=== PATIENT | female | born 1960 | race Caucasian/White ===

== ENCOUNTER 2018-10-25 16:54 | Inpatient (IN) | payer MEDICARE, MEDICAID ==
[~2018-10-25] VITALS: Ht 162.6 cm; Wt 104.8 kg
[2018-10-25] VITALS (7 sets, daily range): BP systolic 98–111; BP diastolic 51–64
[2018-10-25] MEDS ORDERED: IV NORMAL SALINE 1000ML BAG 1,000 ML IV SCH ×2 (17:01→18:15)
[2018-10-25] MEDS ORDERED: IV NORMAL SALINE 1000ML BAG 1,000 ML IV ONE (17:15)
[2018-10-25] MEDS ORDERED: NALOXONE 0.4 MG/ML VIAL. IV ONE (17:15)
[2018-10-25 17:21] LABS: BASO # 0.1 x10^3/uL (0.0-0.2); BASO % 1 % (0-3); EOS # 0.1 x10^3/uL (0.0-0.7); EOS % 1 % (0-3); HEMATOCRIT 46.6 % (36.0-47.0); HEMOGLOBIN 15.6 g/dL (12.0-15.5); LYMPH # 1.7 x10^3/uL (1.0-4.8); LYMPH % 18 % (24-48); MEAN CORPUSCULAR HEMOGLOBIN 32 pg (25-35); MEAN CORPUSCULAR HGB CONC 34 g/dL (31-37); MEAN CORPUSCULAR VOLUME 94 fL (79-100); MONO # 1.1 x10^3/uL (0.0-1.1); MONO % 12 % (0-9); NEUT # 6.5 x10^3uL (1.8-7.7); NEUT % 69 % (31-73); PLATELET COUNT 246 x10^3/uL (140-400); RED BLOOD COUNT 4.95 x10^6/uL (3.50-5.40); RED CELL DISTRIBUTION WIDTH 13.6 % (11.5-14.5); WHITE BLOOD COUNT 9.5 x10^3/uL (4.0-11.0)
[2018-10-25 17:29] LABS: PROTHROMBIN TIME PATIENT 13.3 SEC (11.7-14.0)
[2018-10-25 17:31] LABS: BASE EXCESS ABG 1 mmol/L (-3-3); HCO3 ABG 27 mmol/L (21-28); PCO2 ABG 47 mmHg (35-46); PO2 ABG 65 mmHg (75-108); SAT O2 ABG 92 % (92-99)
[2018-10-25 17:36] LABS: CALCIUM 9.3 mg/dL (8.5-10.1); CREATININE 2.1 mg/dL (0.6-1.0); GFR 24.4; POTASSIUM 3.4 mmol/L (3.5-5.1)
--- NOTE | 2018-10-25 17:39 | RAD ---
PORTABLE CHEST 1V History: Altered level of consciousness, question overdose Comparison: None. Findings: Single view of the chest is submitted. There is no infiltrate, pneumothorax, or effusion. The pericardial cardiac silhouette is within normal limits in size. There is an opaque likely calcified right lower lobe nodule. There is some linear atelectasis or fibrotic change right lung base Impression: 1. There is no significant infiltrate. There is linear atelectasis or fibrotic change right lung base. 2. There is fairly nodule right at the right base which may be partially calcified. Electronically signed by: Suhail Hauser MD (10/25/2018 5:36 PM) [facility]
[2018-10-25 17:42] LABS: ALBUMIN 3.6 g/dL (3.4-5.0); DIRECT BILIRUBIN 0.3 mg/dL (0.0-0.2); TOTAL BILIRUBIN 0.7 mg/dL (0.2-1.0); TOTAL PROTEIN 7.2 g/dL (6.4-8.2)
[2018-10-25 17:43] LABS: ACETAMIN < 2 mcg/ml (10-30); ETHANOL < 10 mg/dL (0-10)
[2018-10-25 17:48] LABS: BILIRUBIN,URINE LARGE (NEG); CLARITY,URINE CLEAR; COLOR,URINE ORANGE; NITRITE,URINE NEGATIVE (NEG); PH,URINE 5.5; PROTEIN,URINE 30 mg/dL (NEG-TRACE)
[2018-10-25 17:55] LABS: AMORPHOUS SEDIMENT,UR PRESENT /HPF; HYALINE CASTS, URINE FEW /HPF; RBC,URINE RARE /HPF (0-2); SQUAMOUS EPITHELIAL CELL,UR FEW /LPF
[2018-10-25 17:56] LABS: BACTERIA,URINE FEW /HPF (0-FEW); BARBITURATES NEG (NEG); BENZODIAZEPINES NEG (NEG); CANNABINOIDS NEG (NEG); COCAINE NEG (NEG); METHADONE NEG (NEG); OPIATES NEG (NEG); PHENCYCLIDINE NEG (NEG)
[2018-10-25 17:57] LABS: AMPHETAMINE/METHAMPHETAMINE NEG (NEG)
--- NOTE | 2018-10-25 18:09 | PHYS DOC ---
Past Medical History Additional Past Medical Histor: SCHIZOAFFECTIVE DISORDER- DEPRESSIVE Past Surgical History: No Surgical History Additional Information: 2 PACKS A DAY Alcohol Use: None Drug Use: None Adult General Chief Complaint Chief Complaint: OVERDOSE HPI HPI Patient is a 58 year old female who was in by EMS because of overdose. Patient states that she twisted 100 mg trazodone yesterday because she was behind of taking her daily 100 trazodone states she became tired of cleaning the house and called her landlord and he suggested she talking to her neighbors. Patient was admitted at [facility] today and staff were concerned she was confused and called 911. EMS reported patient has GCS of 14 and had 0.4 mg of Narcan and became more alert and has GCS of 15. Patient had blood pressure of 70s without tachycardia at arrival to ER and was lethargic but was able to answer all of the questions and denied suicidal and homicidal ideation. Review of Systems Review of Systems Unable to obtain because of mental status Current Medications Current Medications Current Medications Medications (Trade) Dose Ordered Sig/Dez Start Time Stop Time Status Last Admin Dose Admin Naloxone HCl (Narcan) 0.4 mg 1X ONCE 10/25/18 17:15 10/25/18 17:45 DC 10/25/18 17:42 0.4 MG Sodium Chloride 1,000 ml @ 1,000 mls/hr 1X ONCE 10/25/18 17:15 10/25/18 18:14 DC 10/25/18 17:40 1,000 MLS/HR Allergies Allergies Allergies Coded Allergies Type Severity Reaction Last Updated Verified Unable to Assess 10/25/18 No Physical Exam Physical Exam Constitutional: Mild distress, non-toxic appearance. [] HENT: Normocephalic, atraumatic, good gag reflex , oropharynx dry Eyes: PERRLA, EOMI, conjunctiva normal, no discharge. [] Neck: Normal range of motion, no tenderness, supple, no stridor. [] Cardiovascular:Heart rate regular rhythm, no murmur [] Lungs & Thorax: Bilateral breath sounds clear to auscultation [] Abdomen: Bowel sounds normal, soft, no tenderness, no masses, no pulsatile masses. [] Skin: Warm, dry, no erythema, no rash. [] Back: No tenderness, no CVA tenderness. [] Extremities: No tenderness, no cyanosis, no clubbing, ROM intact, no edema. [] Neurologic: Alert and oriented X 2, some nontender, normal motor function, normal sensory function, no focal deficits noted. [] Psychologic: Denies suicidal and homicidal ideation Current Patient Data Vital Signs Vital Signs Date Time Temp Pulse Resp B/P (MAP) Pulse Ox O2 Delivery O2 Flow Rate FiO2 10/25/18 17:10 98.1 90 19 78/44 (55) 92 Room Air 3.0 98.1 Lab Values Laboratory Tests Test 10/25/18 17:10 10/25/18 17:40 White Blood Count 9.5 x10^3/uL (4.0-11.0) Red Blood Count 4.95 x10^6/uL (3.50-5.40) Hemoglobin 15.6 g/dL (12.0-15.5) H Hematocrit 46.6 % (36.0-47.0) Mean Corpuscular Volume 94 fL (79-100) Mean Corpuscular Hemoglobin 32 pg (25-35) Mean Corpuscular Hemoglobin Concent 34 g/dL (31-37) Red Cell Distribution Width 13.6 % (11.5-14.5) Platelet Count 246 x10^3/uL (140-400) Neutrophils (%) (Auto) 69 % (31-73) Lymphocytes (%) (Auto) 18 % (24-48) L Monocytes (%) (Auto) 12 % (0-9) H Eosinophils (%) (Auto) 1 % (0-3) Basophils (%) (Auto) 1 % (0-3) Neutrophils # (Auto) 6.5 x10^3uL (1.8-7.7) Lymphocytes # (Auto) 1.7 x10^3/uL (1.0-4.8) Monocytes # (Auto) 1.1 x10^3/uL (0.0-1.1) Eosinophils # (Auto) 0.1 x10^3/uL (0.0-0.7) Basophils # (Auto) 0.1 x10^3/uL (0.0-0.2) Prothrombin Time 13.3 SEC (11.7-14.0) Prothrombin Time INR 1.0 (0.8-1.1) Sodium Level 139 mmol/L (136-145) Potassium Level 3.4 mmol/L (3.5-5.1) L Chloride Level 98 mmol/L (98-107) Carbon Dioxide Level 30 mmol/L (21-32) Anion Gap 11 (6-14) Blood Urea Nitrogen 42 mg/dL (7-20) H Creatinine 2.1 mg/dL (0.6-1.0) H Estimated GFR (Cockcroft-Gault) 24.4 Glucose Level 113 mg/dL (70-99) H Lactic Acid Level 1.4 mmol/L (0.4-2.0) Calcium Level 9.3 mg/dL (8.5-10.1) Magnesium Level 2.0 mg/dL (1.8-2.4) Total Bilirubin 0.7 mg/dL (0.2-1.0) Direct Bilirubin 0.3 mg/dL (0.0-0.2) H Aspartate Amino Transferase (AST) 24 U/L (15-37) Alanine Aminotransferase (ALT) 28 U/L (14-59) Alkaline Phosphatase 86 U/L (46-116) Total Protein 7.2 g/dL (6.4-8.2) Albumin 3.6 g/dL (3.4-5.0) Salicylates Level 5.0 mg/dL (2.8-20.0) Salicylate Last Dose Date Unknown Salicylate Last Dose Time Unknown Acetaminophen Level < 2 mcg/ml (10-30) L Acetaminophen Last Dose Date Unknown Acetaminophen Last Dose Time Unknown Ethyl Alcohol Level < 10 mg/dL (0-10) Urine Collection Type U cath Urine Color [place] Urine Clarity Clear Urine pH 5.5 Urine Specific [place] 1.025 Urine Protein 30 mg/dL (NEG-TRACE) Urine Glucose (UA) Negative mg/dL (NEG) Urine Ketones (Stick) 15 mg/dL (NEG) Urine Blood Negative (NEG) Urine Nitrite Negative (NEG) Urine Bilirubin Large (NEG) Urine Urobilinogen Dipstick 1.0 mg/dL (0.2 mg/dL) Urine Leukocyte Esterase Trace (NEG) Urine RBC Rare /HPF (0-2) Urine WBC 1-4 /HPF (0-4) Urine Squamous Epithelial Cells Few /LPF Urine Amorphous Sediment Present /HPF Urine Bacteria Few /HPF (0-FEW) Urine Hyaline Casts Few /HPF Urine Mucus Mod /LPF Urine Opiates Screen Neg (NEG) Urine Methadone Screen Neg (NEG) Urine Barbiturates Neg (NEG) Urine Phencyclidine Screen Neg (NEG) Urine Amphetamine/Methamphetamine Neg (NEG) Urine Benzodiazepines Screen Neg (NEG) Urine Cocaine Screen Neg (NEG) Urine Cannabinoids Screen Neg (NEG) Urine Ethyl Alcohol Neg (NEG) Laboratory Tests 10/25/18 17:10 Laboratory Tests 10/25/18 17:10 EKG EKG EKG interpreted by me. EKG at 1708 showed sinus rhythm at rate of 94, right henson axis, no acute ST and T-wave abnormalities Radiology/Procedures Radiology/Procedures [] Impressions: Chest x-ray interpreted by me and did not show acute finding Course & Med Decision Making Course & Med Decision Making Pertinent Labs and Imaging studies reviewed. (See chart for details) Initial patient in ER showed 58-year-old male patient brought in by EMS with lethargic and hypertension. Patient had 200 mg of trazodone. Patient had good gag reflex. The patient treated with IV fluid and Narcan with improvement of blood pressure and mental condition.Patient requiring admission for further evaluation and treatment. Discussed with Dr. Chris who is in agreement with admission. Discussed findings and plan with patient and family, who acknowledge understanding and agreement. Dragon Disclaimer Dragon Disclaimer This electronic medical record was generated, in whole or in part, using a voice recognition dictation system. Departure Departure Impression: Primary Impression: Overdose Additional Impressions: Renal insufficiency Altered level of consciousness Hypotension Hypokalemia Disposition: ADMITTED INPATIENT (at 1741) Admitting Physician: Brianne Chris (accepted admission at 1740) Condition: GUARDED Critical Care Time Critical care time was 70 minutes exclusive of procedures. Problem Qualifiers Primary Impression: Overdose Encounter type: initial encounter Injury intent: undetermined intent Qualified Codes: T50.904A - Poisoning by unspecified drugs, medicaments and biological substances, undetermined, initial encounter Additional Impressions: Hypotension Hypotension type: unspecified hypotension type Qualified Codes: I95.9 - Hypotension, unspecified JOANNE WOODWARD MD October 25, 2018 18:09
[2018-10-25] MEDS ORDERED: POTASSIUM CHLORIDE 20 MEQ TABLET.ER. PO ONE (18:15)
[2018-10-25] MEDS ORDERED: ONDANSETRON PF 4 MG/2 ML VIAL. IV PRN (18:15)
--- NOTE | 2018-10-25 18:22 | PDOC1 ---
History and Physical Date of Admission Date of Admission DATE: 10/25/18 TIME: 18:16 Identification/Chief Complaint Chief Complaint Confusion sent by [facility] Source Source: Caregiver, Chart review, Patient History of Present Illness History of Present Illness SHe is not the best historian, home meds are still pending, she has history of depression and supposed to be admitted to [facility] today but was sent here because of confusion. Now relays to me history of taking 300 mg trazodone from her usual 100 mg because she was not able to take those pills for a few days as she thought she'd catch up. Potassium 3.4 with a creatinine 2.1 unknown baseline. Mild hemoconcentration 15.6. Seems teary-eyed or not in distress but worried demeanor. BP initially low, responsive to IV fluids. Initially oliguria from straight catheter (thick urine) so Bragg catheter placed. Blood pressure better with IV fluids. Got a dose of Narcan and is awake- quite shaky, no seizures. NO fam at bedside Past Medical History Psych: Anxiety, Addictions, Depression, Other (insomnia) Past Surgical History Past Surgical History: No pertinent history Family History Family History: No Significant Social History Smoke: No ALCOHOL: none Drugs: None Current Medications Current Medications Current Medications Sodium Chloride 1,000 ml @ 1,000 mls/hr Q1H IV Last administered on 10/25/18at 17:39; Start 10/25/18 at 17:01; Stop 10/25/18 at 18:00; Status DC Sodium Chloride 1,000 ml @ 1,000 mls/hr 1X ONCE IV Last administered on 10/25/18at 17:40; Start 10/25/18 at 17:15; Stop 10/25/18 at 18:14; Status DC Naloxone HCl (Narcan) 0.4 mg 1X ONCE IV Last administered on 10/25/18at 17:42; Start 10/25/18 at 17:15; Stop 10/25/18 at 17:45; Status DC Allergies Allergies: Coded Allergies: Unable to Assess (Unverified , 10/25/18) ROS Review of System Limited, because of demeanor and above events Denied any abdominal pain, chest pain, S OA or any other issues to me - not interested in food though Physical Exam General: Alert, Oriented X3, Cooperative, No acute distress HEENT: Atraumatic, PERRLA, EOMI Lungs: Clear to auscultation, Normal air movement Heart: S1S2, RRR, no thrills, no rubs, no gallops, no murmurs Cardiovascular: S1, S2 Breasts: Normal, Rt breast nml w/o mass, Lt breast nml w/o mass, Nipples normal Abdomen: Normal bowel sounds, Soft, No tenderness, No hepatosplenomegaly, No masses Rectal Exam: not examined PELVIC: Nml ext genitalia Extremities: No clubbing, No cyanosis, No edema, Normal pulses, No tenderness/swelling Skin: No rashes, No breakdown, No significant lesion Neuro: Normal gait, Normal speech, Strength at 5/5 X4 ext, Normal tone, Sensation intact, Cranial nerves 3-12 NL, Reflexes 2+ Psych/Mental Status: Mental status NL, Mood NL Vitals Vitals Vital Signs Date Time Temp Pulse Resp B/P (MAP) Pulse Ox O2 Delivery O2 Flow Rate FiO2 10/25/18 17:10 98.1 90 19 78/44 (55) 92 Room Air 3.0 98.1 Labs Labs Laboratory Tests Test 10/25/18 17:10 10/25/18 17:40 White Blood Count 9.5 x10^3/uL (4.0-11.0) Red Blood Count 4.95 x10^6/uL (3.50-5.40) Hemoglobin 15.6 g/dL (12.0-15.5) Hematocrit 46.6 % (36.0-47.0) Mean Corpuscular Volume 94 fL (79-100) Mean Corpuscular Hemoglobin 32 pg (25-35) Mean Corpuscular Hemoglobin Concent 34 g/dL (31-37) Red Cell Distribution Width 13.6 % (11.5-14.5) Platelet Count 246 x10^3/uL (140-400) Neutrophils (%) (Auto) 69 % (31-73) Lymphocytes (%) (Auto) 18 % (24-48) Monocytes (%) (Auto) 12 % (0-9) Eosinophils (%) (Auto) 1 % (0-3) Basophils (%) (Auto) 1 % (0-3) Neutrophils # (Auto) 6.5 x10^3uL (1.8-7.7) Lymphocytes # (Auto) 1.7 x10^3/uL (1.0-4.8) Monocytes # (Auto) 1.1 x10^3/uL (0.0-1.1) Eosinophils # (Auto) 0.1 x10^3/uL (0.0-0.7) Basophils # (Auto) 0.1 x10^3/uL (0.0-0.2) Prothrombin Time 13.3 SEC (11.7-14.0) Prothromb Time International Ratio 1.0 (0.8-1.1) Sodium Level 139 mmol/L (136-145) Potassium Level 3.4 mmol/L (3.5-5.1) Chloride Level 98 mmol/L (98-107) Carbon Dioxide Level 30 mmol/L (21-32) Anion Gap 11 (6-14) Blood Urea Nitrogen 42 mg/dL (7-20) Creatinine 2.1 mg/dL (0.6-1.0) Estimated GFR (Cockcroft-Gault) 24.4 Glucose Level 113 mg/dL (70-99) Lactic Acid Level 1.4 mmol/L (0.4-2.0) Calcium Level 9.3 mg/dL (8.5-10.1) Magnesium Level 2.0 mg/dL (1.8-2.4) Total Bilirubin 0.7 mg/dL (0.2-1.0) Direct Bilirubin 0.3 mg/dL (0.0-0.2) Aspartate Amino Transf (AST/SGOT) 24 U/L (15-37) Alanine Aminotransferase (ALT/SGPT) 28 U/L (14-59) Alkaline Phosphatase 86 U/L (46-116) Total Protein 7.2 g/dL (6.4-8.2) Albumin 3.6 g/dL (3.4-5.0) Salicylates Level 5.0 mg/dL (2.8-20.0) Salicylate Last Dose Date Unknown Salicylate Last Dose Time Unknown Acetaminophen Level < 2 mcg/ml (10-30) Acetaminophen Last Dose Date Unknown Acetaminophen Last Dose Time Unknown Ethyl Alcohol Level < 10 mg/dL (0-10) Urine Collection Type U cath Urine Color [place] Urine Clarity Clear Urine pH 5.5 Urine Specific [place] 1.025 Urine Protein 30 mg/dL (NEG-TRACE) Urine Glucose (UA) Negative mg/dL (NEG) Urine Ketones (Stick) 15 mg/dL (NEG) Urine Blood Negative (NEG) Urine Nitrite Negative (NEG) Urine Bilirubin Large (NEG) Urine Urobilinogen Dipstick 1.0 mg/dL (0.2 mg/dL) Urine Leukocyte Esterase Trace (NEG) Urine RBC Rare /HPF (0-2) Urine WBC 1-4 /HPF (0-4) Urine Squamous Epithelial Cells Few /LPF Urine Amorphous Sediment Present /HPF Urine Bacteria Few /HPF (0-FEW) Urine Hyaline Casts Few /HPF Urine Mucus Mod /LPF Urine Opiates Screen Neg (NEG) Urine Methadone Screen Neg (NEG) Urine Barbiturates Neg (NEG) Urine Phencyclidine Screen Neg (NEG) Urine Amphetamine/Methamphetamine Neg (NEG) Urine Benzodiazepines Screen Neg (NEG) Urine Cocaine Screen Neg (NEG) Urine Cannabinoids Screen Neg (NEG) Urine Ethyl Alcohol Neg (NEG) Laboratory Tests Test 10/25/18 17:10 10/25/18 17:40 White Blood Count 9.5 x10^3/uL (4.0-11.0) Red Blood Count 4.95 x10^6/uL (3.50-5.40) Hemoglobin 15.6 g/dL (12.0-15.5) Hematocrit 46.6 % (36.0-47.0) Mean Corpuscular Volume 94 fL (79-100) Mean Corpuscular Hemoglobin 32 pg (25-35) Mean Corpuscular Hemoglobin Concent 34 g/dL (31-37) Red Cell Distribution Width 13.6 % (11.5-14.5) Platelet Count 246 x10^3/uL (140-400) Neutrophils (%) (Auto) 69 % (31-73) Lymphocytes (%) (Auto) 18 % (24-48) Monocytes (%) (Auto) 12 % (0-9) Eosinophils (%) (Auto) 1 % (0-3) Basophils (%) (Auto) 1 % (0-3) Neutrophils # (Auto) 6.5 x10^3uL (1.8-7.7) Lymphocytes # (Auto) 1.7 x10^3/uL (1.0-4.8) Monocytes # (Auto) 1.1 x10^3/uL (0.0-1.1) Eosinophils # (Auto) 0.1 x10^3/uL (0.0-0.7) Basophils # (Auto) 0.1 x10^3/uL (0.0-0.2) Prothrombin Time 13.3 SEC (11.7-14.0) Prothromb Time International Ratio 1.0 (0.8-1.1) Sodium Level 139 mmol/L (136-145) Potassium Level 3.4 mmol/L (3.5-5.1) Chloride Level 98 mmol/L (98-107) Carbon Dioxide Level 30 mmol/L (21-32) Anion Gap 11 (6-14) Blood Urea Nitrogen 42 mg/dL (7-20) Creatinine 2.1 mg/dL (0.6-1.0) Estimated GFR (Cockcroft-Gault) 24.4 Glucose Level 113 mg/dL (70-99) Lactic Acid Level 1.4 mmol/L (0.4-2.0) Calcium Level 9.3 mg/dL (8.5-10.1) Magnesium Level 2.0 mg/dL (1.8-2.4) Total Bilirubin 0.7 mg/dL (0.2-1.0) Direct Bilirubin 0.3 mg/dL (0.0-0.2) Aspartate Amino Transf (AST/SGOT) 24 U/L (15-37) Alanine Aminotransferase (ALT/SGPT) 28 U/L (14-59) Alkaline Phosphatase 86 U/L (46-116) Total Protein 7.2 g/dL (6.4-8.2) Albumin 3.6 g/dL (3.4-5.0) Salicylates Level 5.0 mg/dL (2.8-20.0) Salicylate Last Dose Date Unknown Salicylate Last Dose Time Unknown Acetaminophen Level < 2 mcg/ml (10-30) Acetaminophen Last Dose Date Unknown Acetaminophen Last Dose Time Unknown Ethyl Alcohol Level < 10 mg/dL (0-10) Urine Collection Type U cath Urine Color [place] Urine Clarity Clear Urine pH 5.5 Urine Specific [place] 1.025 Urine Protein 30 mg/dL (NEG-TRACE) Urine Glucose (UA) Negative mg/dL (NEG) Urine Ketones (Stick) 15 mg/dL (NEG) Urine Blood Negative (NEG) Urine Nitrite Negative (NEG) Urine Bilirubin Large (NEG) Urine Urobilinogen Dipstick 1.0 mg/dL (0.2 mg/dL) Urine Leukocyte Esterase Trace (NEG) Urine RBC Rare /HPF (0-2) Urine WBC 1-4 /HPF (0-4) Urine Squamous Epithelial Cells Few /LPF Urine Amorphous Sediment Present /HPF Urine Bacteria Few /HPF (0-FEW) Urine Hyaline Casts Few /HPF Urine Mucus Mod /LPF Urine Opiates Screen Neg (NEG) Urine Methadone Screen Neg (NEG) Urine Barbiturates Neg (NEG) Urine Phencyclidine Screen Neg (NEG) Urine Amphetamine/Methamphetamine Neg (NEG) Urine Benzodiazepines Screen Neg (NEG) Urine Cocaine Screen Neg (NEG) Urine Cannabinoids Screen Neg (NEG) Urine Ethyl Alcohol Neg (NEG) VTE Prophylaxis Ordered VTE Prophylaxis Devices: Yes VTE Pharmacological Prophylaxi: Yes Assessment/Plan Assessment/Plan Trazodone overdose 300 mg-not suicidal, she thought she'd catch up from missing a few days dose worth Hypokalemia mild, 3.4 Hemoconcentration 15.1 AK I VMN creatinine 2.1 Depression NOS Obesity BMI 40 HYPOTENSION responsive to IV fluids PLAN: Admit 2 MN Hydrate, maintain bragg for now Ok for reg diet WOF SZ - s/p narcan Awaiting home meds SW - will go back to [facility] on dc Other supprotive meds WOF : FURTHER HYPOTENSION, IVF bolus prn NS 125cc hr at least SO far no concerning EKG findings on TZ OD - WOF zofran etc and other meds that can prolong QT Seen at ER FULL CODE KEEP TELE FOR NOW ZARI GILLILAND MD October 25, 2018 18:22
[2018-10-25 18:33] LABS: FIO2 ABG 21
[2018-10-25] MEDS: IV NORMAL SALINE 1000ML BAG 1,000 ML IV SCH (20:30)
[2018-10-26] VITALS (14 sets, daily range): BP systolic 92–137; BP diastolic 47–74
[2018-10-26] MEDS: IV NORMAL SALINE 1000ML BAG 1,000 ML IV SCH ×3 (03:00→14:15)
[2018-10-26 05:42] LABS: CALCIUM 8.3 mg/dL (8.5-10.1); CREATININE 0.8 mg/dL (0.6-1.0); GFR 74.2; POTASSIUM 3.2 mmol/L (3.5-5.1)
--- NOTE | 2018-10-26 06:16 | EKG ---
[facility] [address] [place] [address] Test Date: 2018-10-25 Test Time: 17:08:45 Pat Name: JESSICA AGUSTIN Department: Room: Gender: F Bell Maker: : [id number] Requested By: JOANNE WOODWARD Order Number: [id number] Reading MD: Measurements Intervals [place] Rate: 94 P: 66 NV: 176 QRS: 97 QRSD: 84 T: 56 QT: 358 QTc: 453 Interpretive Statements SINUS RHYTHM RIGHTWARD AXIS OTHERWISE NORMAL ECG RI6.01 Unconfirmed report No previous ECG available for comparison
[2018-10-26] MEDS ORDERED: DIVA500T4 PO (07:35)
[2018-10-26] MEDS ORDERED: TRAZ-118 PO (07:35)
[2018-10-26] MEDS ORDERED: PALI234D IM (07:35)
[2018-10-26] MEDS ORDERED: FLUO20CA16 PO (07:35)
[2018-10-26] MEDS ORDERED: OLAN15TA9 PO (07:35)
[2018-10-26] MEDS ORDERED: LISI-334 PO (08:34)
--- NOTE | 2018-10-26 10:34 | NUR ---
SS following for discharge planning. SS received notification that pt was from [facility], [address] [address], ; fax [phone]. SS contacted [facility] and verified that pt was a resident from there facility. Logan reported that once assessed and cleared by the PAT team pt was able to return. [facility] reported that clinical will need to be faxed and pt's RN will need to call in report prior to pt returning. Jolene in ICU notified. SS contacted PAT team and made referral for evaluation. Franky from PAT team coming to assess pt.
--- NOTE | 2018-10-26 10:55 | NUR ---
Pt's 02 sat is 83% on room air,[address] Curry notified. Received order to cancel discharge as [facility] will not accept on . Pt has order to transfer to [address] [place] [address]. Will transfer when bed available.
--- NOTE | 2018-10-26 12:20 | DS ---
DATE OF DISCHARGE: 10/26/2018 ADMISSION DIAGNOSIS: Overdose with three trazodone. DISCHARGE DIAGNOSIS: Resolving overdose, mild urinary tract infection. HOSPITAL COURSE: The patient is a pleasant 58-year-old female who was trying to catch up on her trazodone dosing because she had not taken it for a few days. She took three extra tablets. She was a little sleepy. She was admitted overnight for observation in the ICU. This morning, I saw her and examined her. Her heart tones were normal. His lungs were clear. She is doing well, she wants to go home, although she did ask to talk to the psychiatric assessment team, she denied that she was depressed or suicidal. I talked to the nurse. I am to go ahead and consult the psychiatric assessment team and see what they think, but clinically she seems stable for discharge. She does have a UTI, so I am going to give her a script for some Cipro 500 b.i.d. for 5 days. Her potassium is slightly low at 3.2. I am going to give her some potassium to take 20 p.o. daily for the next month. DISPOSITION: Home. ACTIVITY: As tolerated. DIET: Low sodium. MEDICATIONS: Please see the MRAD. TOTAL TIME: 33 minutes. ALEJANDRO MAY DO DR: PACO/cosmo JOB#: [id number] / [id number]
--- NOTE | 2018-10-26 12:59 | PDOC ---
PULMONARY PROGRESS NOTES Vitals Vital Signs Date Time Temp Pulse Resp B/P (MAP) Pulse Ox O2 Delivery O2 Flow Rate FiO2 10/26/18 10:00 99.4 87 20 92/51 (65) 94 Room Air 99.4 10/26/18 09:03 3.0 Cardiovascular: S1, S2 Labs Laboratory Tests Test 10/25/18 17:10 10/25/18 17:12 10/25/18 17:40 10/26/18 05:00 White Blood Count 9.5 x10^3/uL (4.0-11.0) Red Blood Count 4.95 x10^6/uL (3.50-5.40) Hemoglobin 15.6 g/dL (12.0-15.5) Hematocrit 46.6 % (36.0-47.0) Mean Corpuscular Volume 94 fL (79-100) Mean Corpuscular Hemoglobin 32 pg (25-35) Mean Corpuscular Hemoglobin Concent 34 g/dL (31-37) Red Cell Distribution Width 13.6 % (11.5-14.5) Platelet Count 246 x10^3/uL (140-400) Neutrophils (%) (Auto) 69 % (31-73) Lymphocytes (%) (Auto) 18 % (24-48) Monocytes (%) (Auto) 12 % (0-9) Eosinophils (%) (Auto) 1 % (0-3) Basophils (%) (Auto) 1 % (0-3) Neutrophils # (Auto) 6.5 x10^3uL (1.8-7.7) Lymphocytes # (Auto) 1.7 x10^3/uL (1.0-4.8) Monocytes # (Auto) 1.1 x10^3/uL (0.0-1.1) Eosinophils # (Auto) 0.1 x10^3/uL (0.0-0.7) Basophils # (Auto) 0.1 x10^3/uL (0.0-0.2) Prothrombin Time 13.3 SEC (11.7-14.0) Prothromb Time International Ratio 1.0 (0.8-1.1) Sodium Level 139 mmol/L (136-145) 145 mmol/L (136-145) Potassium Level 3.4 mmol/L (3.5-5.1) 3.2 mmol/L (3.5-5.1) Chloride Level 98 mmol/L (98-107) 108 mmol/L (98-107) Carbon Dioxide Level 30 mmol/L (21-32) 29 mmol/L (21-32) Anion Gap 11 (6-14) 8 (6-14) Blood Urea Nitrogen 42 mg/dL (7-20) 27 mg/dL (7-20) Creatinine 2.1 mg/dL (0.6-1.0) 0.8 mg/dL (0.6-1.0) Estimated GFR (Cockcroft-Gault) 24.4 74.2 Glucose Level 113 mg/dL (70-99) 92 mg/dL (70-99) Lactic Acid Level 1.4 mmol/L (0.4-2.0) Calcium Level 9.3 mg/dL (8.5-10.1) 8.3 mg/dL (8.5-10.1) Magnesium Level 2.0 mg/dL (1.8-2.4) Total Bilirubin 0.7 mg/dL (0.2-1.0) Direct Bilirubin 0.3 mg/dL (0.0-0.2) Aspartate Amino Transf (AST/SGOT) 24 U/L (15-37) Alanine Aminotransferase (ALT/SGPT) 28 U/L (14-59) Alkaline Phosphatase 86 U/L (46-116) Total Protein 7.2 g/dL (6.4-8.2) Albumin 3.6 g/dL (3.4-5.0) Salicylates Level 5.0 mg/dL (2.8-20.0) Salicylate Last Dose Date Unknown Salicylate Last Dose Time Unknown Acetaminophen Level < 2 mcg/ml (10-30) Acetaminophen Last Dose Date Unknown Acetaminophen Last Dose Time Unknown Ethyl Alcohol Level < 10 mg/dL (0-10) O2 Saturation 92 % (92-99) Arterial Blood pH 7.38 (7.35-7.45) Arterial Blood pCO2 at Patient Temp 47 mmHg (35-46) Arterial Blood pO2 at Patient Temp 65 mmHg (75-108) Arterial Blood HCO3 27 mmol/L (21-28) Arterial Blood Base Excess 1 mmol/L (-3-3) FiO2 21 Urine Collection Type U cath Urine Color [place] Urine Clarity Clear Urine pH 5.5 Urine Specific [place] 1.025 Urine Protein 30 mg/dL (NEG-TRACE) Urine Glucose (UA) Negative mg/dL (NEG) Urine Ketones (Stick) 15 mg/dL (NEG) Urine Blood Negative (NEG) Urine Nitrite Negative (NEG) Urine Bilirubin Large (NEG) Urine Urobilinogen Dipstick 1.0 mg/dL (0.2 mg/dL) Urine Leukocyte Esterase Trace (NEG) Urine RBC Rare /HPF (0-2) Urine WBC 1-4 /HPF (0-4) Urine Squamous Epithelial Cells Few /LPF Urine Amorphous Sediment Present /HPF Urine Bacteria Few /HPF (0-FEW) Urine Hyaline Casts Few /HPF Urine Mucus Mod /LPF Urine Opiates Screen Neg (NEG) Urine Methadone Screen Neg (NEG) Urine Barbiturates Neg (NEG) Urine Phencyclidine Screen Neg (NEG) Urine Amphetamine/Methamphetamine Neg (NEG) Urine Benzodiazepines Screen Neg (NEG) Urine Cocaine Screen Neg (NEG) Urine Cannabinoids Screen Neg (NEG) Urine Ethyl Alcohol Neg (NEG) Laboratory Tests Test 10/25/18 17:10 10/25/18 17:12 10/25/18 17:40 10/26/18 05:00 White Blood Count 9.5 x10^3/uL (4.0-11.0) Red Blood Count 4.95 x10^6/uL (3.50-5.40) Hemoglobin 15.6 g/dL (12.0-15.5) Hematocrit 46.6 % (36.0-47.0) Mean Corpuscular Volume 94 fL (79-100) Mean Corpuscular Hemoglobin 32 pg (25-35) Mean Corpuscular Hemoglobin Concent 34 g/dL (31-37) Red Cell Distribution Width 13.6 % (11.5-14.5) Platelet Count 246 x10^3/uL (140-400) Neutrophils (%) (Auto) 69 % (31-73) Lymphocytes (%) (Auto) 18 % (24-48) Monocytes (%) (Auto) 12 % (0-9) Eosinophils (%) (Auto) 1 % (0-3) Basophils (%) (Auto) 1 % (0-3) Neutrophils # (Auto) 6.5 x10^3uL (1.8-7.7) Lymphocytes # (Auto) 1.7 x10^3/uL (1.0-4.8) Monocytes # (Auto) 1.1 x10^3/uL (0.0-1.1) Eosinophils # (Auto) 0.1 x10^3/uL (0.0-0.7) Basophils # (Auto) 0.1 x10^3/uL (0.0-0.2) Prothrombin Time 13.3 SEC (11.7-14.0) Prothromb Time International Ratio 1.0 (0.8-1.1) Sodium Level 139 mmol/L (136-145) 145 mmol/L (136-145) Potassium Level 3.4 mmol/L (3.5-5.1) 3.2 mmol/L (3.5-5.1) Chloride Level 98 mmol/L (98-107) 108 mmol/L (98-107) Carbon Dioxide Level 30 mmol/L (21-32) 29 mmol/L (21-32) Anion Gap 11 (6-14) 8 (6-14) Blood Urea Nitrogen 42 mg/dL (7-20) 27 mg/dL (7-20) Creatinine 2.1 mg/dL (0.6-1.0) 0.8 mg/dL (0.6-1.0) Estimated GFR (Cockcroft-Gault) 24.4 74.2 Glucose Level 113 mg/dL (70-99) 92 mg/dL (70-99) Lactic Acid Level 1.4 mmol/L (0.4-2.0) Calcium Level 9.3 mg/dL (8.5-10.1) 8.3 mg/dL (8.5-10.1) Magnesium Level 2.0 mg/dL (1.8-2.4) Total Bilirubin 0.7 mg/dL (0.2-1.0) Direct Bilirubin 0.3 mg/dL (0.0-0.2) Aspartate Amino Transf (AST/SGOT) 24 U/L (15-37) Alanine Aminotransferase (ALT/SGPT) 28 U/L (14-59) Alkaline Phosphatase 86 U/L (46-116) Total Protein 7.2 g/dL (6.4-8.2) Albumin 3.6 g/dL (3.4-5.0) Salicylates Level 5.0 mg/dL (2.8-20.0) Salicylate Last Dose Date Unknown Salicylate Last Dose Time Unknown Acetaminophen Level < 2 mcg/ml (10-30) Acetaminophen Last Dose Date Unknown Acetaminophen Last Dose Time Unknown Ethyl Alcohol Level < 10 mg/dL (0-10) O2 Saturation 92 % (92-99) Arterial Blood pH 7.38 (7.35-7.45) Arterial Blood pCO2 at Patient Temp 47 mmHg (35-46) Arterial Blood pO2 at Patient Temp 65 mmHg (75-108) Arterial Blood HCO3 27 mmol/L (21-28) Arterial Blood Base Excess 1 mmol/L (-3-3) FiO2 21 Urine Collection Type U cath Urine Color [place] Urine Clarity Clear Urine pH 5.5 Urine Specific [place] 1.025 Urine Protein 30 mg/dL (NEG-TRACE) Urine Glucose (UA) Negative mg/dL (NEG) Urine Ketones (Stick) 15 mg/dL (NEG) Urine Blood Negative (NEG) Urine Nitrite Negative (NEG) Urine Bilirubin Large (NEG) Urine Urobilinogen Dipstick 1.0 mg/dL (0.2 mg/dL) Urine Leukocyte Esterase Trace (NEG) Urine RBC Rare /HPF (0-2) Urine WBC 1-4 /HPF (0-4) Urine Squamous Epithelial Cells Few /LPF Urine Amorphous Sediment Present /HPF Urine Bacteria Few /HPF (0-FEW) Urine Hyaline Casts Few /HPF Urine Mucus Mod /LPF Urine Opiates Screen Neg (NEG) Urine Methadone Screen Neg (NEG) Urine Barbiturates Neg (NEG) Urine Phencyclidine Screen Neg (NEG) Urine Amphetamine/Methamphetamine Neg (NEG) Urine Benzodiazepines Screen Neg (NEG) Urine Cocaine Screen Neg (NEG) Urine Cannabinoids Screen Neg (NEG) Urine Ethyl Alcohol Neg (NEG) Medications Active Scripts Medications Dose Route/Sig Max Daily Dose Days Date Category Lisinopril 20 Mg Tablet 1 Tab PO DAILY 10/26/18 Reported Depakote Er (Divalproex Sodium) 500 Mg Tab.er.24h 3 Tab PO QHS 10/26/18 Reported Invega Sustenna (Paliperidone Palmitate) 234 Mg/1.5 Ml Disp.syrin 1 Syr IM QMONTH 10/26/18 Reported Prozac (Fluoxetine Hcl) 20 Mg Capsule 20 Mg PO DAILY 10/26/18 Reported Olanzapine 15 Mg Tablet 15 Mg PO HS 10/26/18 Reported Trazodone Hcl 50 Mg Tablet 1 Tab PO QHS 10/26/18 Reported Impression . full note dictated aecopd hypoxemia see orders LAN DAVE MD October 26, 2018 12:59
[2018-10-26] MEDS ORDERED: predniSONE 10 MG TABLET PO ONE (13:00)
[2018-10-26] MEDS: DOXYCYCLINE HYCLATE 100 MG TABLET PO SCH ×2 (13:23→21:25)
--- NOTE | 2018-10-26 14:23 | NUR ---
Report called to receiving nurse Brigid on . Pt transported to room 508 per w/c per [facility] transportation with glasses her only belongings.
--- NOTE | 2018-10-26 22:24 | CONS ---
DATE OF CONSULTATION: 10/26/2018 ATTENDING PHYSICIAN: Dr. Curry. REASON FOR CONSULTATION: The patient is seen in pulmonary consultation at the request of Dr. Curry for hypoxemia. HISTORY OF PRESENT ILLNESS: The patient is a 58-year-old female that presented to the Emergency Department as a consequence of trazodone overdose. She came in. She was initially confused. GCS was 14. She was given some Narcan. GCS increased to 15. The patient was hypotensive. She was tachycardic. She was admitted to the Intensive Care Unit. She was found to be hypoxic. I was asked to see her in consultation. The patient does smoke. She currently has a cough productive of discolored sputum. She has not had any frequent acute exacerbations of COPD. Denies any previous history of DVT or pulmonary embolism. PAST MEDICAL HISTORY: Anxiety, depression, addiction, possible schizophrenia. PAST SURGICAL HISTORY: None. FAMILY HISTORY: No family history of lung disorders. SOCIAL HISTORY: She smokes. REVIEW OF SYSTEMS: As indicated in the history of present illness. Otherwise, a 10-point system was reviewed and negative. CONSTITUTIONAL: No fever or chills. EYES: No change in visual acuity. HEENT: No nasal congestion or sore throat. PULMONARY: As indicated above. CARDIOVASCULAR: No chest pain. No pressure. GASTROINTESTINAL: No nausea, vomiting, diarrhea. GENITOURINARY: No dysuria or frequency. MUSCULOSKELETAL: No localized muscle aches or joint pain. SKIN: No new skin rashes. ALLERGIES: PENICILLIN. PHYSICAL EXAMINATION: GENERAL: The patient appeared to be lethargic. She was in the Intensive Care Unit, on 3 liters of oxygen supplementation, saturation greater than 92%. HEENT: Eyes: The sclerae were nonicteric. NECK: Jugular venous distention was not elevated. No lymphadenopathy. CHEST: Full expansion. LUNGS: Crackles and rales along with wheezes. CARDIOVASCULAR: Regular rate and rhythm with S1, S2, no S3. ABDOMEN: Soft, nontender, nondistended. EXTREMITIES: No clubbing, cyanosis or edema. NEUROLOGIC: The patient was awake, alert, following commands. A detailed neuro exam was not performed. LABORATORY DATA: Arterial blood gas; pH of 7.38, PaCO2 of 47, PaO2 of 65 on room air. White count was normal. Hemoglobin and hematocrit were noted. Urine drug screen was negative for opiates, barbiturates, amphetamines. Salicylate level was within low. IMPRESSION: 1. Acute respiratory failure. 2. Acute exacerbation of chronic obstructive pulmonary disease. 3. Hypoventilation from trazodone overdose. 4. Anxiety, addiction, depression. 5. Possible schizophrenia. PLAN: 1. We will continue to support with oxygen. 2. The patient's AA gradient will improve with time once the medications have cleared the body. 3. Initiate prednisone and doxycycline for acute nonspecific bronchitis. 4. We will follow along and make further recommendations. I do appreciate the privilege in sharing in the patient's care. LAN DAVE MD DR: SANDRA/cosmo JOB#: [id number] / [id number]
[2018-10-27 03:00] VITALS: BP 135/81
[2018-10-27 07:00] VITALS: BP 138/66
--- NOTE | 2018-10-27 08:21 | PDOC ---
PULMONARY PROGRESS NOTES Subjective sob better, has occ cough, Vitals Vital Signs Date Time Temp Pulse Resp B/P (MAP) Pulse Ox O2 Delivery O2 Flow Rate FiO2 10/27/18 07:00 98.2 78 16 138/66 (90) 93 Nasal Cannula 3.0 98.2 ROS: No Nausea General: Alert, Oriented X4 HEENT: Other (nc at perrl nose throat clear) Lungs: Crackles Cardiovascular: S1, S2 Abdomen: Soft, Non-tender Neuro Exam: Alert Skin: Warm Labs Laboratory Tests Test 10/25/18 17:10 10/25/18 17:12 10/25/18 17:40 10/26/18 05:00 White Blood Count 9.5 x10^3/uL (4.0-11.0) Red Blood Count 4.95 x10^6/uL (3.50-5.40) Hemoglobin 15.6 g/dL (12.0-15.5) Hematocrit 46.6 % (36.0-47.0) Mean Corpuscular Volume 94 fL (79-100) Mean Corpuscular Hemoglobin 32 pg (25-35) Mean Corpuscular Hemoglobin Concent 34 g/dL (31-37) Red Cell Distribution Width 13.6 % (11.5-14.5) Platelet Count 246 x10^3/uL (140-400) Neutrophils (%) (Auto) 69 % (31-73) Lymphocytes (%) (Auto) 18 % (24-48) Monocytes (%) (Auto) 12 % (0-9) Eosinophils (%) (Auto) 1 % (0-3) Basophils (%) (Auto) 1 % (0-3) Neutrophils # (Auto) 6.5 x10^3uL (1.8-7.7) Lymphocytes # (Auto) 1.7 x10^3/uL (1.0-4.8) Monocytes # (Auto) 1.1 x10^3/uL (0.0-1.1) Eosinophils # (Auto) 0.1 x10^3/uL (0.0-0.7) Basophils # (Auto) 0.1 x10^3/uL (0.0-0.2) Prothrombin Time 13.3 SEC (11.7-14.0) Prothromb Time International Ratio 1.0 (0.8-1.1) Sodium Level 139 mmol/L (136-145) 145 mmol/L (136-145) Potassium Level 3.4 mmol/L (3.5-5.1) 3.2 mmol/L (3.5-5.1) Chloride Level 98 mmol/L (98-107) 108 mmol/L (98-107) Carbon Dioxide Level 30 mmol/L (21-32) 29 mmol/L (21-32) Anion Gap 11 (6-14) 8 (6-14) Blood Urea Nitrogen 42 mg/dL (7-20) 27 mg/dL (7-20) Creatinine 2.1 mg/dL (0.6-1.0) 0.8 mg/dL (0.6-1.0) Estimated GFR (Cockcroft-Gault) 24.4 74.2 Glucose Level 113 mg/dL (70-99) 92 mg/dL (70-99) Lactic Acid Level 1.4 mmol/L (0.4-2.0) Calcium Level 9.3 mg/dL (8.5-10.1) 8.3 mg/dL (8.5-10.1) Magnesium Level 2.0 mg/dL (1.8-2.4) Total Bilirubin 0.7 mg/dL (0.2-1.0) Direct Bilirubin 0.3 mg/dL (0.0-0.2) Aspartate Amino Transf (AST/SGOT) 24 U/L (15-37) Alanine Aminotransferase (ALT/SGPT) 28 U/L (14-59) Alkaline Phosphatase 86 U/L (46-116) Total Protein 7.2 g/dL (6.4-8.2) Albumin 3.6 g/dL (3.4-5.0) Salicylates Level 5.0 mg/dL (2.8-20.0) Salicylate Last Dose Date Unknown Salicylate Last Dose Time Unknown Acetaminophen Level < 2 mcg/ml (10-30) Acetaminophen Last Dose Date Unknown Acetaminophen Last Dose Time Unknown Ethyl Alcohol Level < 10 mg/dL (0-10) O2 Saturation 92 % (92-99) Arterial Blood pH 7.38 (7.35-7.45) Arterial Blood pCO2 at Patient Temp 47 mmHg (35-46) Arterial Blood pO2 at Patient Temp 65 mmHg (75-108) Arterial Blood HCO3 27 mmol/L (21-28) Arterial Blood Base Excess 1 mmol/L (-3-3) FiO2 21 Urine Collection Type U cath Urine Color [place] Urine Clarity Clear Urine pH 5.5 Urine Specific [place] 1.025 Urine Protein 30 mg/dL (NEG-TRACE) Urine Glucose (UA) Negative mg/dL (NEG) Urine Ketones (Stick) 15 mg/dL (NEG) Urine Blood Negative (NEG) Urine Nitrite Negative (NEG) Urine Bilirubin Large (NEG) Urine Urobilinogen Dipstick 1.0 mg/dL (0.2 mg/dL) Urine Leukocyte Esterase Trace (NEG) Urine RBC Rare /HPF (0-2) Urine WBC 1-4 /HPF (0-4) Urine Squamous Epithelial Cells Few /LPF Urine Amorphous Sediment Present /HPF Urine Bacteria Few /HPF (0-FEW) Urine Hyaline Casts Few /HPF Urine Mucus Mod /LPF Urine Opiates Screen Neg (NEG) Urine Methadone Screen Neg (NEG) Urine Barbiturates Neg (NEG) Urine Phencyclidine Screen Neg (NEG) Urine Amphetamine/Methamphetamine Neg (NEG) Urine Benzodiazepines Screen Neg (NEG) Urine Cocaine Screen Neg (NEG) Urine Cannabinoids Screen Neg (NEG) Urine Ethyl Alcohol Neg (NEG) Medications Active Scripts Medications Dose Route/Sig Max Daily Dose Days Date Category Lisinopril 20 Mg Tablet 1 Tab PO DAILY 10/26/18 Reported Depakote Er (Divalproex Sodium) 500 Mg Tab.er.24h 3 Tab PO QHS 10/26/18 Reported Invega Sustenna (Paliperidone Palmitate) 234 Mg/1.5 Ml Disp.syrin 1 Syr IM QMONTH 10/26/18 Reported Prozac (Fluoxetine Hcl) 20 Mg Capsule 20 Mg PO DAILY 10/26/18 Reported Olanzapine 15 Mg Tablet 15 Mg PO HS 10/26/18 Reported Trazodone Hcl 50 Mg Tablet 1 Tab PO QHS 10/26/18 Reported Impression . IMPRESSION: 1. Acute respiratory failure. 2. Acute exacerbation of chronic obstructive pulmonary disease. 3. Hypoventilation from trazodone overdose. 4. Anxiety, addiction, depression. 5. ? schizophrenia. Plan . PLAN: 1. We will continue to support with oxygen. 02 titration to keep sat 92% 2. start BD 3. cont prednisone and doxycycline for acute nonspecific bronchitis. 4. We will follow along and make further recommendations. ELVA MG MD October 27, 2018 08:21
[2018-10-27] MEDS: DOXYCYCLINE HYCLATE 100 MG TABLET PO SCH ×2 (08:28→21:06)
[2018-10-27] MEDS: predniSONE 10 MG TABLET PO SCH (08:29)
[2018-10-27] MEDS ORDERED: POTASSIUM CHLORIDE 20 MEQ TABLET.ER. PO ONE (09:00)
[2018-10-27] MEDS ORDERED: PALIPERIDONE PALMITATE 234 MG/1.5 ML SYRINGE KIT. IM SCH (09:00)
--- NOTE | 2018-10-27 10:11 | PDOC ---
PROGRESS NOTES History of Present Illness History of Present Illness Assessment/Plan Assessment/Plan Trazodone overdose 300 mg-not suicidal, she thought she'd catch up from missing a few days dose Hypokalemia Hemoconcentration 15.1 AK I VMN creatinine 2.1-0.8 Depression NOS Obesity BMI 40 HYPOTENSION responsive to IV fluids acute exac COPD HYPOKALEMIA ALTERED Mental status COPD 2 PPD smoker PLAN: Admit 2 MN Hydrate, reg diet WOF SZ - s/p narcan Awaiting home meds SW - will go back to [facility] on dc Other supprotive meds WOF : FURTHER HYPOTENSION, IVF bolus prn NS 125cc hr D/C SO far no concerning EKG findings on TZ OD - WOF zofran etc and other meds that can prolong QT REPLACE K 10/27 AGAIN am labs still needs o2 nebs qid iv doxy 100mg bid Vitals Vitals Vital Signs Date Time Temp Pulse Resp B/P (MAP) Pulse Ox O2 Delivery O2 Flow Rate FiO2 10/27/18 07:00 98.2 78 16 138/66 (90) 93 Nasal Cannula 3.0 98.2 Physical Exam General: Alert, Oriented X3, Cooperative, No acute distress Heart: Regular rate, Normal S1, No murmurs Lungs: Clear, Crackles, Other (rhonchi) Abdomen: Normal bowel sounds, Soft, No tenderness, No hepatosplenomegaly, No masses Extremities: No clubbing, No cyanosis, No edema, Normal pulses, No tenderness/swelling Skin: No rashes, No breakdown, No significant lesion Labs LABS SPEC #: [id number] DAVIAN: 10/25/18 STATUS: RES REQ #: [id number] RECD: 10/25/[address]: JOANNE WOODWARD MD SOURCE: BLOOD ENTR: 10/25/[address]: CESAR: ORDERED: BCULT Procedure Result BLOOD CULTURE Preliminary NO GROWTH AFTER 1 DAY PORTABLE CHEST 1V History: Altered level of consciousness, question overdose Comparison: None. Findings: Single view of the chest is submitted. There is no infiltrate, pneumothorax, or effusion. The pericardial cardiac silhouette is within normal limits in size. There is an opaque likely calcified right lower lobe nodule. There is some linear atelectasis or fibrotic change right lung base Impression: 1. There is no significant infiltrate. There is linear atelectasis or fibrotic change right lung base. 2. There is fairly nodule right at the right base which may be partially calcified. Electronically signed by: Katie Urrutia MD (10/25/2018 5:36 PM) [facility] DICTATED and SIGNED BY: KATIE URRUTIA MD DATE: 10/25/18 1736 Assessment and Plan Assessmemt and Plan Problems Medical Problems: (1) Altered level of consciousness Status: Acute (2) Hypokalemia Status: Acute (3) Hypotension Status: Acute (4) Renal insufficiency Status: Acute Comment Review of Relevant I have reviewed the following items sima (where applicable) has been applied. Labs Laboratory Tests Test 10/25/18 17:10 10/25/18 17:12 10/25/18 17:40 10/26/18 05:00 White Blood Count 9.5 x10^3/uL (4.0-11.0) Red Blood Count 4.95 x10^6/uL (3.50-5.40) Hemoglobin 15.6 g/dL (12.0-15.5) Hematocrit 46.6 % (36.0-47.0) Mean Corpuscular Volume 94 fL (79-100) Mean Corpuscular Hemoglobin 32 pg (25-35) Mean Corpuscular Hemoglobin Concent 34 g/dL (31-37) Red Cell Distribution Width 13.6 % (11.5-14.5) Platelet Count 246 x10^3/uL (140-400) Neutrophils (%) (Auto) 69 % (31-73) Lymphocytes (%) (Auto) 18 % (24-48) Monocytes (%) (Auto) 12 % (0-9) Eosinophils (%) (Auto) 1 % (0-3) Basophils (%) (Auto) 1 % (0-3) Neutrophils # (Auto) 6.5 x10^3uL (1.8-7.7) Lymphocytes # (Auto) 1.7 x10^3/uL (1.0-4.8) Monocytes # (Auto) 1.1 x10^3/uL (0.0-1.1) Eosinophils # (Auto) 0.1 x10^3/uL (0.0-0.7) Basophils # (Auto) 0.1 x10^3/uL (0.0-0.2) Prothrombin Time 13.3 SEC (11.7-14.0) Prothromb Time International Ratio 1.0 (0.8-1.1) Sodium Level 139 mmol/L (136-145) 145 mmol/L (136-145) Potassium Level 3.4 mmol/L (3.5-5.1) 3.2 mmol/L (3.5-5.1) Chloride Level 98 mmol/L (98-107) 108 mmol/L (98-107) Carbon Dioxide Level 30 mmol/L (21-32) 29 mmol/L (21-32) Anion Gap 11 (6-14) 8 (6-14) Blood Urea Nitrogen 42 mg/dL (7-20) 27 mg/dL (7-20) Creatinine 2.1 mg/dL (0.6-1.0) 0.8 mg/dL (0.6-1.0) Estimated GFR (Cockcroft-Gault) 24.4 74.2 Glucose Level 113 mg/dL (70-99) 92 mg/dL (70-99) Lactic Acid Level 1.4 mmol/L (0.4-2.0) Calcium Level 9.3 mg/dL (8.5-10.1) 8.3 mg/dL (8.5-10.1) Magnesium Level 2.0 mg/dL (1.8-2.4) Total Bilirubin 0.7 mg/dL (0.2-1.0) Direct Bilirubin 0.3 mg/dL (0.0-0.2) Aspartate Amino Transf (AST/SGOT) 24 U/L (15-37) Alanine Aminotransferase (ALT/SGPT) 28 U/L (14-59) Alkaline Phosphatase 86 U/L (46-116) Total Protein 7.2 g/dL (6.4-8.2) Albumin 3.6 g/dL (3.4-5.0) Salicylates Level 5.0 mg/dL (2.8-20.0) Salicylate Last Dose Date Unknown Salicylate Last Dose Time Unknown Acetaminophen Level < 2 mcg/ml (10-30) Acetaminophen Last Dose Date Unknown Acetaminophen Last Dose Time Unknown Ethyl Alcohol Level < 10 mg/dL (0-10) O2 Saturation 92 % (92-99) Arterial Blood pH 7.38 (7.35-7.45) Arterial Blood pCO2 at Patient Temp 47 mmHg (35-46) Arterial Blood pO2 at Patient Temp 65 mmHg (75-108) Arterial Blood HCO3 27 mmol/L (21-28) Arterial Blood Base Excess 1 mmol/L (-3-3) FiO2 21 Urine Collection Type U cath Urine Color [place] Urine Clarity Clear Urine pH 5.5 Urine Specific Jarratt 1.025 Urine Protein 30 mg/dL (NEG-TRACE) Urine Glucose (UA) Negative mg/dL (NEG) Urine Ketones (Stick) 15 mg/dL (NEG) Urine Blood Negative (NEG) Urine Nitrite Negative (NEG) Urine Bilirubin Large (NEG) Urine Urobilinogen Dipstick 1.0 mg/dL (0.2 mg/dL) Urine Leukocyte Esterase Trace (NEG) Urine RBC Rare /HPF (0-2) Urine WBC 1-4 /HPF (0-4) Urine Squamous Epithelial Cells Few /LPF Urine Amorphous Sediment Present /HPF Urine Bacteria Few /HPF (0-FEW) Urine Hyaline Casts Few /HPF Urine Mucus Mod /LPF Urine Opiates Screen Neg (NEG) Urine Methadone Screen Neg (NEG) Urine Barbiturates Neg (NEG) Urine Phencyclidine Screen Neg (NEG) Urine Amphetamine/Methamphetamine Neg (NEG) Urine Benzodiazepines Screen Neg (NEG) Urine Cocaine Screen Neg (NEG) Urine Cannabinoids Screen Neg (NEG) Urine Ethyl Alcohol Neg (NEG) Microbiology 10/25/18 Blood Culture - Preliminary, Resulted NO GROWTH AFTER 1 DAY Medications Current Medications Sodium Chloride 1,000 ml @ 1,000 mls/hr Q1H IV Last administered on 10/25/18at 17:39; Start 10/25/18 at 17:01; Stop 10/25/18 at 18:00; Status DC Sodium Chloride 1,000 ml @ 1,000 mls/hr 1X ONCE IV Last administered on 10/25/18at 17:40; Start 10/25/18 at 17:15; Stop 10/25/18 at 18:14; Status DC Naloxone HCl (Narcan) 0.4 mg 1X ONCE IV Last administered on 10/25/18at 17:42; Start 10/25/18 at 17:15; Stop 10/25/18 at 17:45; Status DC Sodium Chloride 1,000 ml @ 100 mls/hr Q10H IV ; Start 10/25/18 at 18:15; Status UNV Acetaminophen (Tylenol) 500 mg PRN Q6HRS PRN PO MILD PAIN / TEMP; Start 10/25/18 at 18:15 Potassium Chloride (Klor-Con) 40 meq 1X ONCE PO Last administered on 10/25/18at 19:11; Start 10/25/18 at 18:15; Stop 10/25/18 at 18:19; Status DC Ondansetron HCl (Zofran) 4 mg PRN Q6HRS PRN IV NAUSEA/VOMITING; Start 10/25/18 at 18:15 Sodium Chloride 1,000 ml @ 150 mls/hr Q6H40M IV Last administered on 10/26/18at 14:15; Start 10/25/18 at 18:15; Stop 10/26/18 at 18:14; Status DC Prednisone (Prednisone) 30 mg 1X ONCE PO Last administered on 10/26/18at 13:23; Start 10/26/18 at 13:00; Stop 10/26/18 at 13:13; Status DC Prednisone (Prednisone) 30 mg DAILY PO Last administered on 10/27/18at 08:29; Start 10/27/18 at 09:00 Doxycycline Hyclate (Vibra-Tab) 100 mg BID PO Last administered on 10/27/18at 08:28; Start 10/26/18 at 13:15 Potassium Chloride (Klor-Con) 40 meq 1X ONCE PO ; Start 10/27/18 at 09:00; Stop 10/27/18 at 09:01; Status DC Divalproex Sodium (Depakote Er) 1,500 mg QHS PO ; Start 10/27/18 at 21:00 Fluoxetine HCl (PROzac) 20 mg DAILY PO ; Start 10/27/18 at 09:00 Lisinopril (Prinivil) 20 mg DAILY PO ; Start 10/27/18 at 09:00 Paliperidone Palmitate (Invega Sustenna) 234 mg QMONTH IM ; Start 10/27/18 at 09:00; Status UNV Olanzapine (ZyPREXA) 15 mg QHS PO ; Start 10/27/18 at 21:00 Trazodone HCl (Desyrel) 50 mg QHS PO ; Start 10/27/18 at 21:00 Docusate Sodium (Colace) 100 mg BID PO ; Start 10/27/18 at 09:00 Active Scripts Active Reported Lisinopril 20 Mg Tablet 1 Tab PO DAILY Depakote Er (Divalproex Sodium) 500 Mg Tab.er.24h 3 Tab PO QHS Invega Sustenna (Paliperidone Palmitate) 234 Mg/1.5 Ml Disp.syrin 1 Syr IM QMONTH Prozac (Fluoxetine Hcl) 20 Mg Capsule 20 Mg PO DAILY Olanzapine 15 Mg Tablet 15 Mg PO HS Trazodone Hcl 50 Mg Tablet 1 Tab PO QHS Vitals/I & O Vital Sign - Last 24 Hours 10/26/18 10/26/18 10/26/18 10/26/18 15:00 19:00 20:00 23:00 Temp 97.8 98.6 98.3 97.8 98.6 98.3 Pulse 77 90 76 Resp 18 18 18 B/P (MAP) 136/74 (94) 137/71 (93) 129/74 (92) Pulse Ox 97 93 93 O2 Delivery Nasal Cannula Nasal Cannula Nasal Cannula Nasal Cannula O2 Flow Rate 2.0 3.0 3.0 3.0 10/27/18 10/27/18 03:00 07:00 Temp 97.8 98.2 97.8 98.2 Pulse 67 78 Resp 18 16 B/P (MAP) 135/81 (99) 138/66 (90) Pulse Ox 95 93 O2 Delivery Nasal Cannula Nasal Cannula O2 Flow Rate 3.0 3.0 Intake and Output 10/26/18 10/26/18 10/27/18 15:00 23:00 07:00 Intake Total 240 ml Output Total 355 ml 1725 ml Balance -115 ml -1725 ml CHARLENE SORENSEN MD October 27, 2018 10:11
[2018-10-27] MEDS: DOCUSATE SODIUM 100 MG CAPSULE. PO SCH ×2 (10:17→21:06)
[2018-10-27] MEDS: ACETAMINOPHEN 500 MG TABLET PO PRN (10:17)
[2018-10-27] MEDS: FLUoxetine HCL 20 MG CAPSULE PO SCH (10:17)
[2018-10-27 11:00] VITALS: BP 146/88
[2018-10-27] MEDS: LISINOPRIL 20 MG TABLET PO SCH (11:02)
[2018-10-27] MEDS: BUDESONIDE 0.5 MG/2 ML NEBU. NEB SCH ×2 (11:30→18:20)
[2018-10-27 15:00] VITALS: BP 114/54
[2018-10-27] MEDS: IPRATRPIUM/ALBUTEROL 0.5/2.5MG 3 ML NEBU. NEB SCH ×2 (16:00→18:20)
[2018-10-27 19:00] VITALS: BP 135/63
[2018-10-27] MEDS ORDERED: DOXYCYCLINE HYCLATE 100 MG in IV DEXTROSE 5% 100ML 100 ML IV SCH (21:00)
[2018-10-27] MEDS ORDERED: traZODone 50 MG TABLET. PO SCH (21:00)
[2018-10-27] MEDS: OLANZapine 5 MG TABLET PO SCH (21:06)
[2018-10-27] MEDS: LACTOBACILLUS RHAMNOSUS GG 1 CAPSULE. PO SCH (21:06)
[2018-10-27] MEDS: DIVALPROEX EXTENDED RELEASE 500 MG TAB.ER.24H. PO SCH (21:07)
[2018-10-27 23:00] VITALS: BP 153/73
[2018-10-28 03:00] VITALS: BP 148/84
[2018-10-28 07:00] VITALS: BP 136/77
[2018-10-28] MEDS: BUDESONIDE 0.5 MG/2 ML NEBU. NEB SCH ×2 (07:35→20:00)
[2018-10-28] MEDS: IPRATRPIUM/ALBUTEROL 0.5/2.5MG 3 ML NEBU. NEB SCH ×4 (07:35→20:00)
--- NOTE | 2018-10-28 08:24 | PDOC ---
PULMONARY PROGRESS NOTES Subjective sob better, has occ cough, has secobar and nasal congestion Vitals Vital Signs Date Time Temp Pulse Resp B/P (MAP) Pulse Ox O2 Delivery O2 Flow Rate FiO2 10/28/18 07:35 96 Nasal Cannula 2.0 10/28/18 03:00 98.9 67 18 148/84 (105) 98.9 ROS: No Nausea General: Alert, Oriented X4 HEENT: Other (nc at perrl nose throat clear) Lungs: Crackles Cardiovascular: S1, S2 Abdomen: Soft, Non-tender Neuro Exam: Alert Skin: Warm Medications Active Scripts Medications Dose Route/Sig Max Daily Dose Days Date Category Lisinopril 20 Mg Tablet 1 Tab PO DAILY 10/26/18 Reported Depakote Er (Divalproex Sodium) 500 Mg Tab.er.24h 3 Tab PO QHS 10/26/18 Reported Invega Sustenna (Paliperidone Palmitate) 234 Mg/1.5 Ml Disp.syrin 1 Syr IM QMONTH 10/26/18 Reported Prozac (Fluoxetine Hcl) 20 Mg Capsule 20 Mg PO DAILY 10/26/18 Reported Olanzapine 15 Mg Tablet 15 Mg PO HS 10/26/18 Reported Trazodone Hcl 50 Mg Tablet 1 Tab PO QHS 10/26/18 Reported Impression . IMPRESSION: 1. Acute respiratory failure. 2. Acute exacerbation of chronic obstructive pulmonary disease. 3. Hypoventilation from trazodone overdose. 4. Anxiety, addiction, depression. 5. ? schizophrenia. Plan . PLAN: 1. We will continue to support with oxygen. 02 titration to keep sat 92% 2. BD 3. cont prednisone and doxycycline for acute nonspecific bronchitis. 4. add flonase for nasal congestion discussed w ELVA Melissa MD October 28, 2018 08:24
[2018-10-28] MEDS: DOCUSATE SODIUM 100 MG CAPSULE. PO SCH ×2 (08:29→20:14)
[2018-10-28] MEDS: predniSONE 10 MG TABLET PO SCH (08:29)
[2018-10-28] MEDS: LACTOBACILLUS RHAMNOSUS GG 1 CAPSULE. PO SCH ×2 (08:29→20:14)
[2018-10-28] MEDS: FLUoxetine HCL 20 MG CAPSULE PO SCH (08:30)
[2018-10-28] MEDS: DOXYCYCLINE HYCLATE 100 MG TABLET PO SCH ×2 (08:30→20:14)
[2018-10-28] MEDS: LISINOPRIL 20 MG TABLET PO SCH (08:30)
[2018-10-28 09:18] LABS: BASO % 1 % (0-3); EOS # 0.1 x10^3/uL (0.0-0.7); EOS % 2 % (0-3); HEMATOCRIT 42.7 % (36.0-47.0); LYMPH # 1.2 x10^3/uL (1.0-4.8); LYMPH % 27 % (24-48); MEAN CORPUSCULAR HEMOGLOBIN 31 pg (25-35); MEAN CORPUSCULAR HGB CONC 33 g/dL (31-37); MEAN CORPUSCULAR VOLUME 94 fL (79-100); MONO # 0.5 x10^3/uL (0.0-1.1); MONO % 12 % (0-9); NEUT # 2.6 x10^3uL (1.8-7.7); NEUT % 59 % (31-73); PLATELET COUNT 156 x10^3/uL (140-400); RED BLOOD COUNT 4.56 x10^6/uL (3.50-5.40); RED CELL DISTRIBUTION WIDTH 13.3 % (11.5-14.5); WHITE BLOOD COUNT 4.4 x10^3/uL (4.0-11.0)
[2018-10-28] MEDS: FLUTICASONE 50MCG/NASAL SPRAY 16GM BOTTLE. NS SCH (09:18)
[2018-10-28 09:41] LABS: ALBUMIN 2.6 g/dL (3.4-5.0); ALBUMIN/GLOBULIN RATIO 0.8 (1.0-1.7); CALCIUM 9.1 mg/dL (8.5-10.1); CREATININE 0.7 mg/dL (0.6-1.0); GFR 86.6; POTASSIUM 3.4 mmol/L (3.5-5.1); TOTAL BILIRUBIN 0.3 mg/dL (0.2-1.0)
--- NOTE | 2018-10-28 09:50 | PDOC ---
PROGRESS NOTES Chief Complaint Chief Complaint Trazodone overdose 300 mg-not suicidal, she thought she'd catch up from missing a few days dose worth Hypokalemia mild, 3.4 Hemoconcentration 15.1 AK I VMN creatinine 2.1 Depression NOS Obesity BMI 40 HYPOTENSION responsive to IV fluids History of Present Illness History of Present Illness Awake but slow to things Claims still sleepy Got a dose of trazodone, which is unbelievable-she overdosed on trazodone and got a dose on 10/27 yesterday I Stopped the meds on admission In Any case, hemodynamically stable Potassium 3.2, will get replacement Wait for social work-was supposed to go to [facility] when all this happened Plan: discussed with RN at bedside No more trazodone please WAit for SW - was initially planned for [facility] Replace K orally Vitals Vitals Vital Signs Date Time Temp Pulse Resp B/P (MAP) Pulse Ox O2 Delivery O2 Flow Rate FiO2 10/28/18 08:30 76 136/77 10/28/18 07:35 96 Nasal Cannula 2.0 10/28/18 07:00 98.0 18 98.0 Physical Exam General: Alert, Oriented X3, Cooperative, No acute distress Heart: Regular rate, Normal S1, No murmurs Lungs: Clear Abdomen: Normal bowel sounds, Soft, No tenderness, No hepatosplenomegaly, No masses Extremities: No clubbing, No cyanosis, No edema, Normal pulses, No tendern ess/swelling Skin: No rashes, No breakdown, No significant lesion Labs LABS Laboratory Tests Test 10/28/18 08:45 White Blood Count 4.4 x10^3/uL (4.0-11.0) Red Blood Count 4.56 x10^6/uL (3.50-5.40) Hemoglobin 14.0 g/dL (12.0-15.5) Hematocrit 42.7 % (36.0-47.0) Mean Corpuscular Volume 94 fL (79-100) Mean Corpuscular Hemoglobin 31 pg (25-35) Mean Corpuscular Hemoglobin Concent 33 g/dL (31-37) Red Cell Distribution Width 13.3 % (11.5-14.5) Platelet Count 156 x10^3/uL (140-400) Neutrophils (%) (Auto) 59 % (31-73) Lymphocytes (%) (Auto) 27 % (24-48) Monocytes (%) (Auto) 12 % (0-9) Eosinophils (%) (Auto) 2 % (0-3) Basophils (%) (Auto) 1 % (0-3) Neutrophils # (Auto) 2.6 x10^3uL (1.8-7.7) Lymphocytes # (Auto) 1.2 x10^3/uL (1.0-4.8) Monocytes # (Auto) 0.5 x10^3/uL (0.0-1.1) Eosinophils # (Auto) 0.1 x10^3/uL (0.0-0.7) Basophils # (Auto) 0.0 x10^3/uL (0.0-0.2) Sodium Level 142 mmol/L (136-145) Potassium Level 3.4 mmol/L (3.5-5.1) Chloride Level 103 mmol/L (98-107) Carbon Dioxide Level 33 mmol/L (21-32) Anion Gap 6 (6-14) Blood Urea Nitrogen 10 mg/dL (7-20) Creatinine 0.7 mg/dL (0.6-1.0) Estimated GFR (Cockcroft-Gault) 86.6 BUN/Creatinine Ratio 14 (6-20) Glucose Level 128 mg/dL (70-99) Calcium Level 9.1 mg/dL (8.5-10.1) Total Bilirubin 0.3 mg/dL (0.2-1.0) Aspartate Amino Transf (AST/SGOT) 13 U/L (15-37) Alanine Aminotransferase (ALT/SGPT) 21 U/L (14-59) Alkaline Phosphatase 69 U/L (46-116) Total Protein 6.0 g/dL (6.4-8.2) Albumin 2.6 g/dL (3.4-5.0) Albumin/Globulin Ratio 0.8 (1.0-1.7) Review of Systems Review of Systems A 14 point ROS was completed with the following noted as positive: Other systems reviewed and negative. \CONSTITUTIONAL: No fever or chills EYES: No recent changes SKIN: No rash or itching CARDIOVASCULAR: No chest pain, syncope, palpitations, or edema RESPIRATORY: No SOB or cough GASTROINTESTINAL: No nausea, vomiting or abdominal pain NEUROLOGICAL: No headaches or weakness ENDOCRINE: No cold or heat intolerance GENITOURINARY: No urgency or frequency of urination MUSCULOSKELETAL: No back pain or joint pain LYMPHATICS: No enlarged lymph nodes PSYCHIATRIC: No anxiety or depression Assessment and Plan Assessmemt and Plan Problems Medical Problems: (1) Altered level of consciousness Status: Acute (2) Hypokalemia Status: Acute (3) Hypotension Status: Acute (4) Renal insufficiency Status: Acute Comment Review of Relevant I have reviewed the following items sima (where applicable) has been applied. Labs Laboratory Tests Test 10/28/18 08:45 White Blood Count 4.4 x10^3/uL (4.0-11.0) Red Blood Count 4.56 x10^6/uL (3.50-5.40) Hemoglobin 14.0 g/dL (12.0-15.5) Hematocrit 42.7 % (36.0-47.0) Mean Corpuscular Volume 94 fL (79-100) Mean Corpuscular Hemoglobin 31 pg (25-35) Mean Corpuscular Hemoglobin Concent 33 g/dL (31-37) Red Cell Distribution Width 13.3 % (11.5-14.5) Platelet Count 156 x10^3/uL (140-400) Neutrophils (%) (Auto) 59 % (31-73) Lymphocytes (%) (Auto) 27 % (24-48) Monocytes (%) (Auto) 12 % (0-9) Eosinophils (%) (Auto) 2 % (0-3) Basophils (%) (Auto) 1 % (0-3) Neutrophils # (Auto) 2.6 x10^3uL (1.8-7.7) Lymphocytes # (Auto) 1.2 x10^3/uL (1.0-4.8) Monocytes # (Auto) 0.5 x10^3/uL (0.0-1.1) Eosinophils # (Auto) 0.1 x10^3/uL (0.0-0.7) Basophils # (Auto) 0.0 x10^3/uL (0.0-0.2) Sodium Level 142 mmol/L (136-145) Potassium Level 3.4 mmol/L (3.5-5.1) Chloride Level 103 mmol/L (98-107) Carbon Dioxide Level 33 mmol/L (21-32) Anion Gap 6 (6-14) Blood Urea Nitrogen 10 mg/dL (7-20) Creatinine 0.7 mg/dL (0.6-1.0) Estimated GFR (Cockcroft-Gault) 86.6 BUN/Creatinine Ratio 14 (6-20) Glucose Level 128 mg/dL (70-99) Calcium Level 9.1 mg/dL (8.5-10.1) Total Bilirubin 0.3 mg/dL (0.2-1.0) Aspartate Amino Transf (AST/SGOT) 13 U/L (15-37) Alanine Aminotransferase (ALT/SGPT) 21 U/L (14-59) Alkaline Phosphatase 69 U/L (46-116) Total Protein 6.0 g/dL (6.4-8.2) Albumin 2.6 g/dL (3.4-5.0) Albumin/Globulin Ratio 0.8 (1.0-1.7) Laboratory Tests Test 10/28/18 08:45 White Blood Count 4.4 x10^3/uL (4.0-11.0) Red Blood Count 4.56 x10^6/uL (3.50-5.40) Hemoglobin 14.0 g/dL (12.0-15.5) Hematocrit 42.7 % (36.0-47.0) Mean Corpuscular Volume 94 fL (79-100) Mean Corpuscular Hemoglobin 31 pg (25-35) Mean Corpuscular Hemoglobin Concent 33 g/dL (31-37) Red Cell Distribution Width 13.3 % (11.5-14.5) Platelet Count 156 x10^3/uL (140-400) Neutrophils (%) (Auto) 59 % (31-73) Lymphocytes (%) (Auto) 27 % (24-48) Monocytes (%) (Auto) 12 % (0-9) Eosinophils (%) (Auto) 2 % (0-3) Basophils (%) (Auto) 1 % (0-3) Neutrophils # (Auto) 2.6 x10^3uL (1.8-7.7) Lymphocytes # (Auto) 1.2 x10^3/uL (1.0-4.8) Monocytes # (Auto) 0.5 x10^3/uL (0.0-1.1) Eosinophils # (Auto) 0.1 x10^3/uL (0.0-0.7) Basophils # (Auto) 0.0 x10^3/uL (0.0-0.2) Sodium Level 142 mmol/L (136-145) Potassium Level 3.4 mmol/L (3.5-5.1) Chloride Level 103 mmol/L (98-107) Carbon Dioxide Level 33 mmol/L (21-32) Anion Gap 6 (6-14) Blood Urea Nitrogen 10 mg/dL (7-20) Creatinine 0.7 mg/dL (0.6-1.0) Estimated GFR (Cockcroft-Gault) 86.6 BUN/Creatinine Ratio 14 (6-20) Glucose Level 128 mg/dL (70-99) Calcium Level 9.1 mg/dL (8.5-10.1) Total Bilirubin 0.3 mg/dL (0.2-1.0) Aspartate Amino Transf (AST/SGOT) 13 U/L (15-37) Alanine Aminotransferase (ALT/SGPT) 21 U/L (14-59) Alkaline Phosphatase 69 U/L (46-116) Total Protein 6.0 g/dL (6.4-8.2) Albumin 2.6 g/dL (3.4-5.0) Albumin/Globulin Ratio 0.8 (1.0-1.7) Microbiology 10/25/18 Blood Culture - Preliminary, Resulted NO GROWTH AFTER 2 DAYS 10/25/18 Urine Culture - Final, Complete 10/25/18 Urine Culture Result 1 (LESTER) - Final, Complete Medications Current Medications Sodium Chloride 1,000 ml @ 1,000 mls/hr Q1H IV Last administered on 10/25/18at 17:39; Start 10/25/18 at 17:01; Stop 10/25/18 at 18:00; Status DC Sodium Chloride 1,000 ml @ 1,000 mls/hr 1X ONCE IV Last administered on 10/25/18at 17:40; Start 10/25/18 at 17:15; Stop 10/25/18 at 18:14; Status DC Naloxone HCl (Narcan) 0.4 mg 1X ONCE IV Last administered on 10/25/18at 17:42; Start 10/25/18 at 17:15; Stop 10/25/18 at 17:45; Status DC Sodium Chloride 1,000 ml @ 100 mls/hr Q10H IV ; Start 10/25/18 at 18:15; Status UNV Acetaminophen (Tylenol) 500 mg PRN Q6HRS PRN PO MILD PAIN / TEMP Last administered on 10/27/18 10:17; Start 10/25/18 at 18:15 Potassium Chloride (Klor-Con) 40 meq 1X ONCE PO Last administered on 10/25/18 19:11; Start 10/25/18 at 18:15; Stop 10/25/18 at 18:19; Status DC Ondansetron HCl (Zofran) 4 mg PRN Q6HRS PRN IV NAUSEA/VOMITING; Start 10/25/18 at 18:15 Sodium Chloride 1,000 ml @ 150 mls/hr Q6H40M IV Last administered on 10/26/18 14:15; Start 10/25/18 at 18:15; Stop 10/26/18 at 18:14; Status DC Prednisone (Prednisone) 30 mg 1X ONCE PO Last administered on 10/26/18 13:23; Start 10/26/18 at 13:00; Stop 10/26/18 at 13:13; Status DC Prednisone (Prednisone) 30 mg DAILY PO Last administered on 10/28/18 08:29; Start 10/27/18 at 09:00 Doxycycline Hyclate (Vibra-Tab) 100 mg BID PO Last administered on 10/28/18 08:30; Start 10/26/18 at 13:15 Potassium Chloride (Klor-Con) 40 meq 1X ONCE PO Last administered on 10/27/18 10:17; Start 10/27/18 at 09:00; Stop 10/27/18 at 09:01; Status DC Divalproex Sodium (Depakote Er) 1,500 mg QHS PO Last administered on 10/27/18 21:07; Start 10/27/18 at 21:00 Fluoxetine HCl (PROzac) 20 mg DAILY PO Last administered on 10/28/18 08:30; Start 10/27/18 at 09:00 Lisinopril (Prinivil) 20 mg DAILY PO Last administered on 10/28/18at 08:30; Start 10/27/18 at 09:00 Paliperidone Palmitate (Invega Sustenna) 234 mg QMONTH IM ; Start 10/27/18 at 09:00; Status UNV Olanzapine (ZyPREXA) 15 mg QHS PO Last administered on 10/27/18at 21:06; Start 10/27/18 at 21:00 Trazodone HCl (Desyrel) 50 mg QHS PO Last administered on 10/27/18at 21:06; Start 10/27/18 at 21:00; Stop 10/28/18 at 08:31; Status DC Docusate Sodium (Colace) 100 mg BID PO Last administered on 10/28/18at 08:29; Start 10/27/18 at 09:00 Doxycycline Hyclate 100 mg/ Dextrose 100 ml @ 50 mls/hr Q12HR IV ; Start 10/27/18 at 21:00; Status UNV Budesonide (Pulmicort) 0.5 mg RTBID NEB Last administered on 10/28/18at 07:35; Start 10/27/18 at 11:30 Lactobacillus Rhamnosus (Culturelle) 1 cap BID PO Last administered on 10/28/18at 08:29; Start 10/27/18 at 21:00 Albuterol/ Ipratropium (Duoneb) 3 ml RTQID NEB Last administered on 10/28/18at 07:35; Start 10/27/18 at 16:00 Fluticasone Propionate (Flonase) 2 spray DAILY NS Last administered on 10/28/18at 09:18; Start 10/28/18 at 09:00 Active Scripts Active Reported Lisinopril 20 Mg Tablet 1 Tab PO DAILY Depakote Er (Divalproex Sodium) 500 Mg Tab.er.24h 3 Tab PO QHS Invega Sustenna (Paliperidone Palmitate) 234 Mg/1.5 Ml Disp.syrin 1 Syr IM QMONTH Prozac (Fluoxetine Hcl) 20 Mg Capsule 20 Mg PO DAILY Olanzapine 15 Mg Tablet 15 Mg PO HS Trazodone Hcl 50 Mg Tablet 1 Tab PO QHS Vitals/I & O Vital Sign - Last 24 Hours 10/27/18 10/27/18 10/27/18 10/27/18 11:00 11:02 15:00 18:20 Temp 97.7 98.4 97.7 98.4 Pulse 72 72 79 Resp 18 16 B/P (MAP) 146/88 (107) 146/88 114/54 (74) Pulse Ox 98 91 93 O2 Delivery Nasal Cannula Nasal Cannula Nasal Cannula O2 Flow Rate 3.0 2.0 2.0 10/27/18 10/27/18 10/27/18 10/28/18 19:00 20:18 23:00 03:00 Temp 99.2 98.6 98.9 99.2 98.6 98.9 Pulse 79 69 67 Resp 18 18 18 B/P (MAP) 135/63 (87) 153/73 (99) 148/84 (105) Pulse Ox 90 97 97 O2 Delivery Nasal Cannula Nasal Cannula Nasal Cannula Nasal Cannula O2 Flow Rate 2.0 2.0 2.0 2.0 10/28/18 10/28/18 10/28/18 07:00 07:35 08:30 Temp 98.0 98.0 Pulse 76 76 Resp 18 B/P (MAP) 136/77 (96) 136/77 Pulse Ox 97 96 O2 Delivery Nasal Cannula Nasal Cannula O2 Flow Rate 2.0 2.0 Intake and Output 10/27/18 10/27/18 10/28/18 15:00 23:00 07:00 Intake Total 650 ml 120 ml Output Total 350 ml 700 ml Balance 300 ml -580 ml ZARI GILLILAND MD October 28, 2018 09:50
[2018-10-28] MEDS ORDERED: POTASSIUM CHLORIDE 20 MEQ TABLET.ER. PO ONE (10:30)
[2018-10-28 11:00] VITALS: BP 128/64
[2018-10-28 15:00] VITALS: BP 130/60
[2018-10-28 19:00] VITALS: BP 124/62
--- NOTE | 2018-10-28 19:27 | NUR ---
Patient was asking to go to the bathroom every 15 minutes. Patient was bladder scanned before going to the bathroom patient had 350, patient voided and bladder scanned afterwards and patient scanned at the most 50mls. Will continue to monitor patient.
[2018-10-28] MEDS: DIVALPROEX EXTENDED RELEASE 500 MG TAB.ER.24H. PO SCH (20:13)
[2018-10-28] MEDS: OLANZapine 5 MG TABLET PO SCH (20:14)
[2018-10-28 23:00] VITALS: BP 132/64
[2018-10-29 03:00] VITALS: BP 140/65
[2018-10-29] MEDS: IPRATRPIUM/ALBUTEROL 0.5/2.5MG 3 ML NEBU. NEB SCH ×4 (06:59→19:39)
[2018-10-29 07:00] VITALS: BP 148/77
[2018-10-29] MEDS: BUDESONIDE 0.5 MG/2 ML NEBU. NEB SCH ×2 (07:00→19:39)
[2018-10-29] MEDS: ACETAMINOPHEN 500 MG TABLET PO PRN ×2 (08:29→21:01)
[2018-10-29] MEDS: DOCUSATE SODIUM 100 MG CAPSULE. PO SCH ×2 (08:30→21:01)
[2018-10-29] MEDS: FLUoxetine HCL 20 MG CAPSULE PO SCH (08:30)
[2018-10-29] MEDS: LISINOPRIL 20 MG TABLET PO SCH (08:30)
[2018-10-29] MEDS: predniSONE 10 MG TABLET PO SCH (08:30)
[2018-10-29] MEDS: LACTOBACILLUS RHAMNOSUS GG 1 CAPSULE. PO SCH ×2 (08:30→21:01)
[2018-10-29] MEDS: DOXYCYCLINE HYCLATE 100 MG TABLET PO SCH ×2 (08:30→21:01)
--- NOTE | 2018-10-29 09:14 | PDOC ---
PROGRESS NOTES Chief Complaint Chief Complaint Trazodone overdose 300 mg-not suicidal, she thought she'd catch up from missing a few days dose worth Hypokalemia mild, 3.4 Hemoconcentration 15.1 AK I VMN creatinine 2.1 Depression NOS Obesity BMI 40 HYPOTENSION responsive to IV fluids History of Present Illness History of Present Illness Awake but slow to things Goes to the potty every 2 hours We are waiting for social work-was supposed to go to [facility] when she had the confusion Patient agreeable to still to go to [facility] Otherwise no medical issues aside from urinary urgency or incontinence Plan Await social science research assistant/discharge hopefully Monday NO More trazodone please-as she overdosed on this Vitals Vitals Vital Signs Date Time Temp Pulse Resp B/P (MAP) Pulse Ox O2 Delivery O2 Flow Rate FiO2 10/29/18 08:30 77 148/77 10/29/18 07:50 Nasal Cannula 2.0 10/29/18 07:03 90 10/29/18 07:00 98.0 18 98.0 Physical Exam General: Alert, Oriented X3, Cooperative, No acute distress Heart: Regular rate, Normal S1, No murmurs Lungs: Clear Abdomen: Normal bowel sounds, Soft, No tenderness, No hepatosplenomegaly, No masses Extremities: No clubbing, No cyanosis, No edema, Normal pulses, No tenderness/swelling Skin: No rashes, No breakdown, No significant lesion Review of Systems Review of Systems A 14 point ROS was completed with the following noted as positive: Other systems reviewed and negative. \CONSTITUTIONAL: No fever or chills EYES: No recent changes SKIN: No rash or itching CARDIOVASCULAR: No chest pain, syncope, palpitations, or edema RESPIRATORY: No SOB or cough GASTROINTESTINAL: No nausea, vomiting or abdominal pain NEUROLOGICAL: No headaches or weakness ENDOCRINE: No cold or heat intolerance GENITOURINARY: No urgency or frequency of urination MUSCULOSKELETAL: No back pain or joint pain LYMPHATICS: No enlarged lymph nodes PSYCHIATRIC: No anxiety or depression Assessment and Plan Assessmemt and Plan Problems Medical Problems: (1) Altered level of consciousness Status: Acute (2) Hypokalemia Status: Acute (3) Hypotension Status: Acute (4) Renal insufficiency Status: Acute Comment Review of Relevant I have reviewed the following items sima (where applicable) has been applied. Labs Laboratory Tests Test 10/28/18 08:45 White Blood Count 4.4 x10^3/uL (4.0-11.0) Red Blood Count 4.56 x10^6/uL (3.50-5.40) Hemoglobin 14.0 g/dL (12.0-15.5) Hematocrit 42.7 % (36.0-47.0) Mean Corpuscular Volume 94 fL (79-100) Mean Corpuscular Hemoglobin 31 pg (25-35) Mean Corpuscular Hemoglobin Concent 33 g/dL (31-37) Red Cell Distribution Width 13.3 % (11.5-14.5) Platelet Count 156 x10^3/uL (140-400) Neutrophils (%) (Auto) 59 % (31-73) Lymphocytes (%) (Auto) 27 % (24-48) Monocytes (%) (Auto) 12 % (0-9) Eosinophils (%) (Auto) 2 % (0-3) Basophils (%) (Auto) 1 % (0-3) Neutrophils # (Auto) 2.6 x10^3uL (1.8-7.7) Lymphocytes # (Auto) 1.2 x10^3/uL (1.0-4.8) Monocytes # (Auto) 0.5 x10^3/uL (0.0-1.1) Eosinophils # (Auto) 0.1 x10^3/uL (0.0-0.7) Basophils # (Auto) 0.0 x10^3/uL (0.0-0.2) Sodium Level 142 mmol/L (136-145) Potassium Level 3.4 mmol/L (3.5-5.1) Chloride Level 103 mmol/L (98-107) Carbon Dioxide Level 33 mmol/L (21-32) Anion Gap 6 (6-14) Blood Urea Nitrogen 10 mg/dL (7-20) Creatinine 0.7 mg/dL (0.6-1.0) Estimated GFR (Cockcroft-Gault) 86.6 BUN/Creatinine Ratio 14 (6-20) Glucose Level 128 mg/dL (70-99) Calcium Level 9.1 mg/dL (8.5-10.1) Total Bilirubin 0.3 mg/dL (0.2-1.0) Aspartate Amino Transf (AST/SGOT) 13 U/L (15-37) Alanine Aminotransferase (ALT/SGPT) 21 U/L (14-59) Alkaline Phosphatase 69 U/L (46-116) Total Protein 6.0 g/dL (6.4-8.2) Albumin 2.6 g/dL (3.4-5.0) Albumin/Globulin Ratio 0.8 (1.0-1.7) Microbiology 10/25/18 Blood Culture - Preliminary, Resulted NO GROWTH AFTER 3 DAYS 10/25/18 Urine Culture - Final, Complete 10/25/18 Urine Culture Result 1 (LESTER) - Final, Complete Medications Current Medications Sodium Chloride 1,000 ml @ 1,000 mls/hr Q1H IV Last administered on 10/25/18at 17:39; Start 10/25/18 at 17:01; Stop 10/25/18 at 18:00; Status DC Sodium Chloride 1,000 ml @ 1,000 mls/hr 1X ONCE IV Last administered on 10/25/18at 17:40; Start 10/25/18 at 17:15; Stop 10/25/18 at 18:14; Status DC Naloxone HCl (Narcan) 0.4 mg 1X ONCE IV Last administered on 10/25/18at 17:42; Start 10/25/18 at 17:15; Stop 10/25/18 at 17:45; Status DC Sodium Chloride 1,000 ml @ 100 mls/hr Q10H IV ; Start 10/25/18 at 18:15; Status UNV Acetaminophen (Tylenol) 500 mg PRN Q6HRS PRN PO MILD PAIN / TEMP Last administered on 10/29/18at 08:29; Start 10/25/18 at 18:15 Potassium Chloride (Klor-Con) 40 meq 1X ONCE PO Last administered on 10/25/18at 19:11; Start 10/25/18 at 18:15; Stop 10/25/18 at 18:19; Status DC Ondansetron HCl (Zofran) 4 mg PRN Q6HRS PRN IV NAUSEA/VOMITING; Start 10/25/18 at 18:15 Sodium Chloride 1,000 ml @ 150 mls/hr Q6H40M IV Last administered on 10/26/18at 14:15; Start 10/25/18 at 18:15; Stop 10/26/18 at 18:14; Status DC Prednisone (Prednisone) 30 mg 1X ONCE PO Last administered on 10/26/18 13:23; Start 10/26/18 at 13:00; Stop 10/26/18 at 13:13; Status DC Prednisone (Prednisone) 30 mg DAILY PO Last administered on 10/29/18 08:30; Start 10/27/18 at 09:00 Doxycycline Hyclate (Vibra-Tab) 100 mg BID PO Last administered on 10/29/18 08:30; Start 10/26/18 at 13:15 Potassium Chloride (Klor-Con) 40 meq 1X ONCE PO Last administered on 10/27/18 10:17; Start 10/27/18 at 09:00; Stop 10/27/18 at 09:01; Status DC Divalproex Sodium (Depakote Er) 1,500 mg QHS PO Last administered on 10/28/18 20:13; Start 10/27/18 at 21:00 Fluoxetine HCl (PROzac) 20 mg DAILY PO Last administered on 10/29/18 08:30; Start 10/27/18 at 09:00 Lisinopril (Prinivil) 20 mg DAILY PO Last administered on 10/29/18 08:30; Start 10/27/18 at 09:00 Paliperidone Palmitate (Invega Sustenna) 234 mg QMONTH IM ; Start 10/27/18 at 09:00; Status UNV Olanzapine (ZyPREXA) 15 mg QHS PO Last administered on 10/28/18 20:14; Start 10/27/18 at 21:00 Trazodone HCl (Desyrel) 50 mg QHS PO Last administered on 10/27/18 21:06; Start 10/27/18 at 21:00; Stop 10/28/18 at 08:31; Status DC Docusate Sodium (Colace) 100 mg BID PO Last administered on 10/29/18 08:30; Start 10/27/18 at 09:00 Doxycycline Hyclate 100 mg/ Dextrose 100 ml @ 50 mls/hr Q12HR IV ; Start 10/27/18 at 21:00; Status UNV Budesonide (Pulmicort) 0.5 mg RTBID NEB Last administered on 10/29/18at 07:00; Start 10/27/18 at 11:30 Lactobacillus Rhamnosus (Culturelle) 1 cap BID PO Last administered on 10/29/18 08:30; Start 10/27/18 at 21:00 Albuterol/ Ipratropium (Duoneb) 3 ml RTQID NEB Last administered on 10/29/18at 06:59; Start 10/27/18 at 16:00 Fluticasone Propionate (Flonase) 2 spray DAILY NS Last administered on 10/28/18at 09:18; Start 10/28/18 at 09:00 Potassium Chloride (Klor-Con) 40 meq 1X ONCE PO Last administered on 10/28/18at 11:21; Start 10/28/18 at 10:30; Stop 10/28/18 at 10:31; Status DC Active Scripts Active Reported Lisinopril 20 Mg Tablet 1 Tab PO DAILY Depakote Er (Divalproex Sodium) 500 Mg Tab.er.24h 3 Tab PO QHS Invega Sustenna (Paliperidone Palmitate) 234 Mg/1.5 Ml Disp.syrin 1 Syr IM QMONTH Prozac (Fluoxetine Hcl) 20 Mg Capsule 20 Mg PO DAILY Olanzapine 15 Mg Tablet 15 Mg PO HS Trazodone Hcl 50 Mg Tablet 1 Tab PO QHS Vitals/I & O Vital Sign - Last 24 Hours 10/28/18 10/28/18 10/28/18 10/28/18 11:00 11:39 15:00 16:00 Temp 98.2 98.2 98.2 98.2 Pulse 74 76 Resp 18 18 B/P (MAP) 128/64 (85) 130/60 (83) Pulse Ox 94 95 96 O2 Delivery Nasal Cannula Nasal Cannula Nasal Cannula Nasal Cannula O2 Flow Rate 2.0 2.0 2.0 2.0 10/28/18 10/28/18 10/28/18 10/28/18 19:00 20:00 20:10 23:00 Temp 98.7 98.7 98.7 98.7 Pulse 76 75 Resp 18 18 B/P (MAP) 124/62 (82) 132/64 (86) Pulse Ox 96 94 91 O2 Delivery Nasal Cannula Nasal Cannula Nasal Cannula Nasal Cannula O2 Flow Rate 2.0 2.0 2.0 2.0 10/29/18 10/29/18 10/29/18 10/29/18 03:00 07:00 07:01 07:03 Temp 98.0 98.0 Pulse 72 77 Resp 16 18 B/P (MAP) 140/65 (90) 148/77 (100) Pulse Ox 92 90 90 90 O2 Delivery Nasal Cannula Nasal Cannula Nasal Cannula Nasal Cannula O2 Flow Rate 2.0 2.0 2.0 2.0 10/29/18 10/29/18 07:50 08:30 Pulse 77 B/P (MAP) 148/77 O2 Delivery Nasal Cannula O2 Flow Rate 2.0 Intake and Output 10/28/18 10/28/18 10/29/18 14:59 22:59 06:59 Intake Total 550 ml 300 ml Output Total 800 ml Balance -250 ml 300 ml ZARI GILLILAND MD October 29, 2018 09:14
[2018-10-29 10:44] VITALS: BP 156/84
[2018-10-29] MEDS: FLUTICASONE 50MCG/NASAL SPRAY 16GM BOTTLE. NS SCH (10:44)
[2018-10-29 15:00] VITALS: BP 158/80
--- NOTE | 2018-10-29 15:23 | PDOC ---
PULMONARY PROGRESS NOTES Subjective still soa Vitals Vital Signs Date Time Temp Pulse Resp B/P (MAP) Pulse Ox O2 Delivery O2 Flow Rate FiO2 10/29/18 11:14 Nasal Cannula 2.0 10/29/18 10:44 98.0 82 18 156/84 (108) 93 98.0 ROS: No Nausea, No Chest Pain, No Abdominal Pain, No Increase Cough General: Alert, Oriented X4 HEENT: Other (nc at perrl nose throat clear) Lungs: Clear Cardiovascular: S1, S2 Abdomen: Soft, Non-tender Neuro Exam: Alert Skin: Warm Labs Laboratory Tests Test 10/28/18 08:45 White Blood Count 4.4 x10^3/uL (4.0-11.0) Red Blood Count 4.56 x10^6/uL (3.50-5.40) Hemoglobin 14.0 g/dL (12.0-15.5) Hematocrit 42.7 % (36.0-47.0) Mean Corpuscular Volume 94 fL (79-100) Mean Corpuscular Hemoglobin 31 pg (25-35) Mean Corpuscular Hemoglobin Concent 33 g/dL (31-37) Red Cell Distribution Width 13.3 % (11.5-14.5) Platelet Count 156 x10^3/uL (140-400) Neutrophils (%) (Auto) 59 % (31-73) Lymphocytes (%) (Auto) 27 % (24-48) Monocytes (%) (Auto) 12 % (0-9) Eosinophils (%) (Auto) 2 % (0-3) Basophils (%) (Auto) 1 % (0-3) Neutrophils # (Auto) 2.6 x10^3uL (1.8-7.7) Lymphocytes # (Auto) 1.2 x10^3/uL (1.0-4.8) Monocytes # (Auto) 0.5 x10^3/uL (0.0-1.1) Eosinophils # (Auto) 0.1 x10^3/uL (0.0-0.7) Basophils # (Auto) 0.0 x10^3/uL (0.0-0.2) Sodium Level 142 mmol/L (136-145) Potassium Level 3.4 mmol/L (3.5-5.1) Chloride Level 103 mmol/L (98-107) Carbon Dioxide Level 33 mmol/L (21-32) Anion Gap 6 (6-14) Blood Urea Nitrogen 10 mg/dL (7-20) Creatinine 0.7 mg/dL (0.6-1.0) Estimated GFR (Cockcroft-Gault) 86.6 BUN/Creatinine Ratio 14 (6-20) Glucose Level 128 mg/dL (70-99) Calcium Level 9.1 mg/dL (8.5-10.1) Total Bilirubin 0.3 mg/dL (0.2-1.0) Aspartate Amino Transf (AST/SGOT) 13 U/L (15-37) Alanine Aminotransferase (ALT/SGPT) 21 U/L (14-59) Alkaline Phosphatase 69 U/L (46-116) Total Protein 6.0 g/dL (6.4-8.2) Albumin 2.6 g/dL (3.4-5.0) Albumin/Globulin Ratio 0.8 (1.0-1.7) Medications Active Scripts Medications Dose Route/Sig Max Daily Dose Days Date Category Lisinopril 20 Mg Tablet 1 Tab PO DAILY 10/26/18 Reported Depakote Er (Divalproex Sodium) 500 Mg Tab.er.24h 3 Tab PO QHS 10/26/18 Reported Invega Sustenna (Paliperidone Palmitate) 234 Mg/1.5 Ml Disp.syrin 1 Syr IM QMONTH 10/26/18 Reported Prozac (Fluoxetine Hcl) 20 Mg Capsule 20 Mg PO DAILY 10/26/18 Reported Olanzapine 15 Mg Tablet 15 Mg PO HS 10/26/18 Reported Trazodone Hcl 50 Mg Tablet 1 Tab PO QHS 10/26/18 Reported Impression . IMPRESSION: 1. Acute respiratory failure. 2. Acute exacerbation of chronic obstructive pulmonary disease. 3. Hypoventilation from trazodone overdose. 4. Anxiety, addiction, depression. 5. ? schizophrenia. Plan . appears depressed home soon ok 6 mw pt eval taper pred LAN DAVE MD October 29, 2018 15:23
--- NOTE | 2018-10-29 17:53 | RAD ---
EXAM: CT Head without IV contrast CLINICAL HISTORY: confusion, hx schizophrenia COMPARISON: None. TECHNIQUE: Routine CT of the head without contrast. Soft tissues and bone windows were reviewed. PQRS compliance statement - One or more of the following individualized dose reduction techniques were utilized for this study: 1. Automated exposure control 2. Adjustment of the mA and/or kV according to patient size 3. Use of iterative reconstruction technique FINDINGS: There is no evidence of hemorrhage, mass or extra-axial fluid collection. Marcus-white differentiation is maintained with no evidence of edema. There is no mass effect or shift of the intracranial structures. The ventricles, basilar cisterns and cortical sulci are normal in size and configuration for the patients stated age. The cerebellum and brainstem are unremarkable. The calvarium demonstrates no evidence of fracture or focal lesion. There is normal aeration of the visualized paranasal sinuses and mastoid air cells. The visualized portions of the orbits are normal. IMPRESSION: 1. No radiographic evidence for acute cardiopulmonary process. Electronically signed by: Lamine Leal MD (10/29/2018 5:50 PM) [facility]
[2018-10-29 19:00] VITALS: BP 160/82
[2018-10-29] MEDS: OLANZapine 5 MG TABLET PO SCH (21:01)
[2018-10-29] MEDS: DIVALPROEX EXTENDED RELEASE 500 MG TAB.ER.24H. PO SCH (21:01)
[2018-10-29 22:00] VITALS: BP 145/75
[2018-10-30 03:00] VITALS: BP 152/83
[2018-10-30 07:00] VITALS: BP 160/95
[2018-10-30] MEDS: BUDESONIDE 0.5 MG/2 ML NEBU. NEB SCH ×2 (07:36→20:41)
[2018-10-30] MEDS: IPRATRPIUM/ALBUTEROL 0.5/2.5MG 3 ML NEBU. NEB SCH ×4 (07:36→20:41)
[2018-10-30] MEDS: predniSONE 10 MG TABLET PO SCH (08:25)
[2018-10-30] MEDS: LACTOBACILLUS RHAMNOSUS GG 1 CAPSULE. PO SCH ×2 (08:25→21:11)
[2018-10-30] MEDS: DOXYCYCLINE HYCLATE 100 MG TABLET PO SCH ×2 (08:25→21:11)
[2018-10-30] MEDS: LISINOPRIL 20 MG TABLET PO SCH (08:25)
[2018-10-30] MEDS: DOCUSATE SODIUM 100 MG CAPSULE. PO SCH ×2 (08:25→21:12)
[2018-10-30] MEDS: FLUTICASONE 50MCG/NASAL SPRAY 16GM BOTTLE. NS SCH (08:26)
[2018-10-30] MEDS: FLUoxetine HCL 20 MG CAPSULE PO SCH (08:26)
[2018-10-30] MEDS ORDERED: PALIPERIDONE PALMITATE 234 MG/1.5 ML SYRINGE KIT. IM SCH (09:00)
--- NOTE | 2018-10-30 10:24 | PDOC ---
PULMONARY PROGRESS NOTES Subjective no soa Vitals Vital Signs Date Time Temp Pulse Resp B/P (MAP) Pulse Ox O2 Delivery O2 Flow Rate FiO2 10/30/18 08:25 76 160/95 10/30/18 08:00 Nasal Cannula 2.0 10/30/18 07:39 92 10/30/18 07:00 98.0 18 98.0 ROS: No Nausea, No Chest Pain, No Abdominal Pain, No Increase Cough General: Alert, Oriented X4 HEENT: Other (nc at perrl nose throat clear) Lungs: Clear Cardiovascular: S1, S2 Abdomen: Soft, Non-tender Neuro Exam: Alert Skin: Warm Labs Laboratory Tests Test 10/29/18 16:00 Erythrocyte Sedimentation Rate 5 (0-25) Ammonia 16 mcmol/L (11-34) Thyroid Stimulating Hormone (TSH) 0.965 uIU/mL (0.358-3.74) Laboratory Tests Test 10/29/18 16:00 Erythrocyte Sedimentation Rate 5 (0-25) Ammonia 16 mcmol/L (11-34) Thyroid Stimulating Hormone (TSH) 0.965 uIU/mL (0.358-3.74) Medications Active Scripts Medications Dose Route/Sig Max Daily Dose Days Date Category Lisinopril 20 Mg Tablet 1 Tab PO DAILY 10/26/18 Reported Depakote Er (Divalproex Sodium) 500 Mg Tab.er.24h 3 Tab PO QHS 10/26/18 Reported Invega Sustenna (Paliperidone Palmitate) 234 Mg/1.5 Ml Disp.syrin 1 Syr IM QMONTH 10/26/18 Reported Prozac (Fluoxetine Hcl) 20 Mg Capsule 20 Mg PO DAILY 10/26/18 Reported Olanzapine 15 Mg Tablet 15 Mg PO HS 10/26/18 Reported Trazodone Hcl 50 Mg Tablet 1 Tab PO QHS 10/26/18 Reported Impression . IMPRESSION: 1. Acute respiratory failure. 2. Acute exacerbation of chronic obstructive pulmonary disease. 3. Hypoventilation from trazodone overdose. 4. Anxiety, addiction, depression. 5. ? schizophrenia. Plan . appears depressed ok pulmonary craig for home 6 mw pt eval taper pred cxr with RLL granuloma BETH AGUILAR MD October 30, 2018 10:24
[2018-10-30 11:00] VITALS: BP 141/81
--- NOTE | 2018-10-30 14:16 | NUR ---
WILNER consulted for dc needs. Chart reviewed and discussed with RN. WILNER spoke with Malika at [facility] and she reported pt has been at [facility] prior hospitalization. WILNER faxed clinicals to [facility] and Malika reported a nurse will call SW back if pt is able to return back. Awaiting on 6 min walk to [facility] 02 needs. Will continue to follow.
[2018-10-30] MEDS: LIDOCAINE (700MG/PATCH) PATCH. TD SCH (14:17)
[2018-10-30 15:01] VITALS: BP 145/84
--- NOTE | 2018-10-30 16:25 | PDOC ---
PROGRESS NOTES Chief Complaint Chief Complaint Trazodone overdose 300 mg-not suicidal, she thought she'd catch up from missing a few days dose worth Hypokalemia mild, 3.4 Hemoconcentration 15.1 AK I VMN creatinine 2.1 Depression NOS Obesity BMI 40 HYPOTENSION responsive to IV fluids History of Present Illness History of Present Illness Awake but slow to things more conversabnt, but confused refused back at her psych facility, cont PT and OT, Patient agreeable to still to go to [facility] [place], trazodone is being avoided, recent overdose Vitals Vitals Vital Signs Date Time Temp Pulse Resp B/P (MAP) Pulse Ox O2 Delivery O2 Flow Rate FiO2 10/30/18 16:11 93 Nasal Cannula 2.0 10/30/18 15:01 97.7 82 18 145/84 (104) 97.7 Physical Exam General: Alert, Oriented X3, Cooperative, No acute distress Heart: Regular rate, Normal S1, No murmurs Lungs: Clear Abdomen: Normal bowel sounds, Soft, No tenderness, No hepatosplenomegaly, No masses Extremities: No clubbing, No cyanosis, No edema, Normal pulses, No tendern ess/swelling Skin: No rashes, No breakdown, No significant lesion Assessment and Plan Assessmemt and Plan Problems Medical Problems: (1) Altered level of consciousness Status: Acute (2) Hypokalemia Status: Acute (3) Hypotension Status: Acute (4) Renal insufficiency Status: Acute Comment Review of Relevant I have reviewed the following items sima (where applicable) has been applied. Labs Laboratory Tests Test 10/29/18 16:00 Erythrocyte Sedimentation Rate 5 (0-25) Ammonia 16 mcmol/L (11-34) Thyroid Stimulating Hormone (TSH) 0.965 uIU/mL (0.358-3.74) Microbiology 10/25/18 Blood Culture - Preliminary, Resulted NO GROWTH AFTER 4 DAYS 10/25/18 Urine Culture - Final, Complete 10/25/18 Urine Culture Result 1 (LESTER) - Final, Complete Medications Current Medications Sodium Chloride 1,000 ml @ 1,000 mls/hr Q1H IV Last administered on 10/25/18at 17:39; Start 10/25/18 at 17:01; Stop 10/25/18 at 18:00; Status DC Sodium Chloride 1,000 ml @ 1,000 mls/hr 1X ONCE IV Last administered on 10/25/18at 17:40; Start 10/25/18 at 17:15; Stop 10/25/18 at 18:14; Status DC Naloxone HCl (Narcan) 0.4 mg 1X ONCE IV Last administered on 10/25/18at 17:42; Start 10/25/18 at 17:15; Stop 10/25/18 at 17:45; Status DC Sodium Chloride 1,000 ml @ 100 mls/hr Q10H IV ; Start 10/25/18 at 18:15; Status UNV Acetaminophen (Tylenol) 500 mg PRN Q6HRS PRN PO MILD PAIN / TEMP Last administered on 10/29/18at 21:01; Start 10/25/18 at 18:15 Potassium Chloride (Klor-Con) 40 meq 1X ONCE PO Last administered on 10/25/18at 19:11; Start 10/25/18 at 18:15; Stop 10/25/18 at 18:19; Status DC Ondansetron HCl (Zofran) 4 mg PRN Q6HRS PRN IV NAUSEA/VOMITING; Start 10/25/18 at 18:15 Sodium Chloride 1,000 ml @ 150 mls/hr Q6H40M IV Last administered on 10/26/18 14:15; Start 10/25/18 at 18:15; Stop 10/26/18 at 18:14; Status DC Prednisone (Prednisone) 30 mg 1X ONCE PO Last administered on 10/26/18 13:23; Start 10/26/18 at 13:00; Stop 10/26/18 at 13:13; Status DC Prednisone (Prednisone) 30 mg DAILY PO Last administered on 10/30/18at 08:25; Start 10/27/18 at 09:00; Stop 10/30/18 at 10:24; Status DC Doxycycline Hyclate (Vibra-Tab) 100 mg BID PO Last administered on 10/30/18 08:25; Start 10/26/18 at 13:15 Potassium Chloride (Klor-Con) 40 meq 1X ONCE PO Last administered on 10/27/18at 10:17; Start 10/27/18 at 09:00; Stop 10/27/18 at 09:01; Status DC Divalproex Sodium (Depakote Er) 1,500 mg QHS PO Last administered on 10/29/18 21:01; Start 10/27/18 at 21:00 Fluoxetine HCl (PROzac) 20 mg DAILY PO Last administered on 10/30/18 08:26; Start 10/27/18 at 09:00 Lisinopril (Prinivil) 20 mg DAILY PO Last administered on 10/30/18 08:25; Start 10/27/18 at 09:00 Paliperidone Palmitate (Invega Sustenna) 234 mg QMONTH IM ; Start 10/27/18 at 09:00; Stop 10/29/18 at 11:11; Status DC Olanzapine (ZyPREXA) 15 mg QHS PO Last administered on 10/29/18 21:01; Start 10/27/18 at 21:00 Trazodone HCl (Desyrel) 50 mg QHS PO Last administered on 10/27/18 21:06; Start 10/27/18 at 21:00; Stop 10/28/18 at 08:31; Status DC Docusate Sodium (Colace) 100 mg BID PO Last administered on 10/30/18 08:25; Start 10/27/18 at 09:00 Doxycycline Hyclate 100 mg/ Dextrose 100 ml @ 50 mls/hr Q12HR IV ; Start 10/27/18 at 21:00; Status UNV Budesonide (Pulmicort) 0.5 mg RTBID NEB Last administered on 10/30/18 07:36; Start 10/27/18 at 11:30 Lactobacillus Rhamnosus (Culturelle) 1 cap BID PO Last administered on 10/30/18 08:25; Start 10/27/18 at 21:00 Albuterol/ Ipratropium (Duoneb) 3 ml RTQID NEB Last administered on 10/30/18 16:09; Start 10/27/18 at 16:00 Fluticasone Propionate (Flonase) 2 spray DAILY NS Last administered on 10/30/18 08:26; Start 10/28/18 at 09:00 Potassium Chloride (Klor-Con) 40 meq 1X ONCE PO Last administered on 10/28/18 11:21; Start 10/28/18 at 10:30; Stop 10/28/18 at 10:31; Status DC Paliperidone Palmitate (Invega Sustenna) 234 mg QMONTH IM ; Start 10/30/18 at 09:00 Prednisone (Prednisone) 20 mg DAILY PO ; Start 10/31/18 at 09:00 Lidocaine (Lidoderm) 1 patch DAILY TD Last administered on 10/30/18at 14:17; Start 10/30/18 at 15:00 Miscellaneous (Lidoderm Patch Removal) 1 ea QHS ; Start 10/30/18 at 21:00 Active Scripts Active Reported Lisinopril 20 Mg Tablet 1 Tab PO DAILY Depakote Er (Divalproex Sodium) 500 Mg Tab.er.24h 3 Tab PO QHS Invega Sustenna (Paliperidone Palmitate) 234 Mg/1.5 Ml Disp.syrin 1 Syr IM QMONTH Prozac (Fluoxetine Hcl) 20 Mg Capsule 20 Mg PO DAILY Olanzapine 15 Mg Tablet 15 Mg PO HS Trazodone Hcl 50 Mg Tablet 1 Tab PO QHS Vitals/I & O Vital Sign - Last 24 Hours 10/29/18 10/29/18 10/29/18 10/29/18 19:00 19:39 20:14 22:00 Temp 98.0 98.0 98.0 98.0 Pulse 85 81 Resp 18 18 B/P (MAP) 160/82 (108) 145/75 (98) Pulse Ox 92 92 91 O2 Delivery Nasal Cannula Nasal Cannula Nasal Cannula Nasal Cannula O2 Flow Rate 2.0 2.0 2.0 2.0 10/30/18 10/30/18 10/30/18 10/30/18 03:00 07:00 07:38 07:39 Temp 98.3 98.0 98.3 98.0 Pulse 71 76 Resp 18 18 B/P (MAP) 152/83 (106) 160/95 (116) Pulse Ox 93 91 92 92 O2 Delivery Nasal Cannula Nasal Cannula Nasal Cannula Nasal Cannula O2 Flow Rate 2.0 2.0 2.0 2.0 10/30/18 10/30/18 10/30/18 10/30/18 08:00 08:25 11:00 12:13 Temp 97.6 97.6 Pulse 76 80 Resp 18 B/P (MAP) 160/95 141/81 (101) Pulse Ox 90 91 O2 Delivery Nasal Cannula Nasal Cannula Nasal Cannula O2 Flow Rate 2.0 2.0 2.0 10/30/18 10/30/18 15:01 16:11 Temp 97.7 97.7 Pulse 82 Resp 18 B/P (MAP) 145/84 (104) Pulse Ox 90 93 O2 Delivery Nasal Cannula Nasal Cannula O2 Flow Rate 2.0 2.0 Intake and Output 10/29/18 10/29/18 10/30/18 15:00 23:00 07:00 Intake Total 300 ml 1150 ml Output Total 400 ml Balance -100 ml 1150 ml CLAY STINSON MD October 30, 2018 16:25
[2018-10-30 19:00] VITALS: BP 165/88
[2018-10-30] MEDS: PATCH REMOVAL. MC SCH (21:00)
[2018-10-30] MEDS: DIVALPROEX EXTENDED RELEASE 500 MG TAB.ER.24H. PO SCH (21:11)
[2018-10-30] MEDS: OLANZapine 5 MG TABLET PO SCH (21:11)
[2018-10-30] MEDS: ACETAMINOPHEN 500 MG TABLET PO PRN (21:12)
[2018-10-30 23:00] VITALS: BP 148/85
[2018-10-31 03:00] VITALS: BP 143/87
[2018-10-31] MEDS: BUDESONIDE 0.5 MG/2 ML NEBU. NEB SCH ×2 (05:46→20:24)
[2018-10-31] MEDS: IPRATRPIUM/ALBUTEROL 0.5/2.5MG 3 ML NEBU. NEB SCH ×4 (05:46→20:24)
[2018-10-31 07:00] VITALS: BP 153/82
[2018-10-31 07:58] LABS: BASO % 1 % (0-3); EOS # 0.1 x10^3/uL (0.0-0.7); EOS % 2 % (0-3); HEMOGLOBIN 14.6 g/dL (12.0-15.5); LYMPH # 1.7 x10^3/uL (1.0-4.8); LYMPH % 33 % (24-48); MEAN CORPUSCULAR HEMOGLOBIN 31 pg (25-35); MEAN CORPUSCULAR HGB CONC 33 g/dL (31-37); MEAN CORPUSCULAR VOLUME 94 fL (79-100); MONO # 0.6 x10^3/uL (0.0-1.1); MONO % 11 % (0-9); NEUT # 2.8 x10^3uL (1.8-7.7); NEUT % 54 % (31-73); PLATELET COUNT 192 x10^3/uL (140-400); RED BLOOD COUNT 4.68 x10^6/uL (3.50-5.40); RED CELL DISTRIBUTION WIDTH 13.6 % (11.5-14.5); WHITE BLOOD COUNT 5.1 x10^3/uL (4.0-11.0)
[2018-10-31 08:28] LABS: ALBUMIN/GLOBULIN RATIO 0.8 (1.0-1.7); CALCIUM 9.6 mg/dL (8.5-10.1); CREATININE 0.5 mg/dL (0.6-1.0); GFR 127.6; POTASSIUM 3.4 mmol/L (3.5-5.1); TOTAL BILIRUBIN 0.4 mg/dL (0.2-1.0); TOTAL PROTEIN 6.6 g/dL (6.4-8.2)
--- NOTE | 2018-10-31 08:44 | PDOC ---
PULMONARY PROGRESS NOTES Subjective no soa Vitals Vital Signs Date Time Temp Pulse Resp B/P (MAP) Pulse Ox O2 Delivery O2 Flow Rate FiO2 10/31/18 07:00 98.0 75 18 153/82 (105) 91 Nasal Cannula 2.0 98.0 ROS: No Nausea, No Chest Pain, No Abdominal Pain, No Increase Cough General: Alert, Oriented X4 HEENT: Other (nc at perrl nose throat clear) Lungs: Clear Cardiovascular: S1, S2 Abdomen: Soft, Non-tender Neuro Exam: Alert Skin: Warm Labs Laboratory Tests Test 10/29/18 16:00 10/31/18 07:17 Erythrocyte Sedimentation Rate 5 (0-25) Ammonia 16 mcmol/L (11-34) Thyroid Stimulating Hormone (TSH) 0.965 uIU/mL (0.358-3.74) White Blood Count 5.1 x10^3/uL (4.0-11.0) Red Blood Count 4.68 x10^6/uL (3.50-5.40) Hemoglobin 14.6 g/dL (12.0-15.5) Hematocrit 44.0 % (36.0-47.0) Mean Corpuscular Volume 94 fL (79-100) Mean Corpuscular Hemoglobin 31 pg (25-35) Mean Corpuscular Hemoglobin Concent 33 g/dL (31-37) Red Cell Distribution Width 13.6 % (11.5-14.5) Platelet Count 192 x10^3/uL (140-400) Neutrophils (%) (Auto) 54 % (31-73) Lymphocytes (%) (Auto) 33 % (24-48) Monocytes (%) (Auto) 11 % (0-9) Eosinophils (%) (Auto) 2 % (0-3) Basophils (%) (Auto) 1 % (0-3) Neutrophils # (Auto) 2.8 x10^3uL (1.8-7.7) Lymphocytes # (Auto) 1.7 x10^3/uL (1.0-4.8) Monocytes # (Auto) 0.6 x10^3/uL (0.0-1.1) Eosinophils # (Auto) 0.1 x10^3/uL (0.0-0.7) Basophils # (Auto) 0.0 x10^3/uL (0.0-0.2) Sodium Level 143 mmol/L (136-145) Potassium Level 3.4 mmol/L (3.5-5.1) Chloride Level 101 mmol/L (98-107) Carbon Dioxide Level 33 mmol/L (21-32) Anion Gap 9 (6-14) Blood Urea Nitrogen 9 mg/dL (7-20) Creatinine 0.5 mg/dL (0.6-1.0) Estimated GFR (Cockcroft-Gault) 127.6 BUN/Creatinine Ratio 18 (6-20) Glucose Level 85 mg/dL (70-99) Calcium Level 9.6 mg/dL (8.5-10.1) Total Bilirubin 0.4 mg/dL (0.2-1.0) Aspartate Amino Transf (AST/SGOT) 13 U/L (15-37) Alanine Aminotransferase (ALT/SGPT) 29 U/L (14-59) Alkaline Phosphatase 66 U/L (46-116) Total Protein 6.6 g/dL (6.4-8.2) Albumin 3.0 g/dL (3.4-5.0) Albumin/Globulin Ratio 0.8 (1.0-1.7) Laboratory Tests Test 10/31/18 07:17 White Blood Count 5.1 x10^3/uL (4.0-11.0) Red Blood Count 4.68 x10^6/uL (3.50-5.40) Hemoglobin 14.6 g/dL (12.0-15.5) Hematocrit 44.0 % (36.0-47.0) Mean Corpuscular Volume 94 fL (79-100) Mean Corpuscular Hemoglobin 31 pg (25-35) Mean Corpuscular Hemoglobin Concent 33 g/dL (31-37) Red Cell Distribution Width 13.6 % (11.5-14.5) Platelet Count 192 x10^3/uL (140-400) Neutrophils (%) (Auto) 54 % (31-73) Lymphocytes (%) (Auto) 33 % (24-48) Monocytes (%) (Auto) 11 % (0-9) Eosinophils (%) (Auto) 2 % (0-3) Basophils (%) (Auto) 1 % (0-3) Neutrophils # (Auto) 2.8 x10^3uL (1.8-7.7) Lymphocytes # (Auto) 1.7 x10^3/uL (1.0-4.8) Monocytes # (Auto) 0.6 x10^3/uL (0.0-1.1) Eosinophils # (Auto) 0.1 x10^3/uL (0.0-0.7) Basophils # (Auto) 0.0 x10^3/uL (0.0-0.2) Sodium Level 143 mmol/L (136-145) Potassium Level 3.4 mmol/L (3.5-5.1) Chloride Level 101 mmol/L (98-107) Carbon Dioxide Level 33 mmol/L (21-32) Anion Gap 9 (6-14) Blood Urea Nitrogen 9 mg/dL (7-20) Creatinine 0.5 mg/dL (0.6-1.0) Estimated GFR (Cockcroft-Gault) 127.6 BUN/Creatinine Ratio 18 (6-20) Glucose Level 85 mg/dL (70-99) Calcium Level 9.6 mg/dL (8.5-10.1) Total Bilirubin 0.4 mg/dL (0.2-1.0) Aspartate Amino Transf (AST/SGOT) 13 U/L (15-37) Alanine Aminotransferase (ALT/SGPT) 29 U/L (14-59) Alkaline Phosphatase 66 U/L (46-116) Total Protein 6.6 g/dL (6.4-8.2) Albumin 3.0 g/dL (3.4-5.0) Albumin/Globulin Ratio 0.8 (1.0-1.7) Medications Active Scripts Medications Dose Route/Sig Max Daily Dose Days Date Category Lisinopril 20 Mg Tablet 1 Tab PO DAILY 10/26/18 Reported Depakote Er (Divalproex Sodium) 500 Mg Tab.er.24h 3 Tab PO QHS 10/26/18 Reported Invega Sustenna (Paliperidone Palmitate) 234 Mg/1.5 Ml Disp.syrin 1 Syr IM QMONTH 10/26/18 Reported Prozac (Fluoxetine Hcl) 20 Mg Capsule 20 Mg PO DAILY 10/26/18 Reported Olanzapine 15 Mg Tablet 15 Mg PO HS 10/26/18 Reported Trazodone Hcl 50 Mg Tablet 1 Tab PO QHS 10/26/18 Reported Impression . IMPRESSION: 1. Acute respiratory failure. 2. Acute exacerbation of chronic obstructive pulmonary disease. 3. Hypoventilation from trazodone overdose. 4. Anxiety, addiction, depression. 5. ? schizophrenia. Plan . ok pulmonary [facility] for home 6 mw pt eval taper pred po doxy cxr with RLL granuloma will sign off BETH AGUILAR MD October 31, 2018 08:44
--- NOTE | 2018-10-31 09:43 | NUR ---
Invverga sustenna injection not given,not covered by insurance to be given here,to be given as outpatient at [facility] facility after discharge.
[2018-10-31] MEDS: FLUTICASONE 50MCG/NASAL SPRAY 16GM BOTTLE. NS SCH (09:56)
[2018-10-31] MEDS: DOCUSATE SODIUM 100 MG CAPSULE. PO SCH ×2 (09:57→20:49)
[2018-10-31] MEDS: LACTOBACILLUS RHAMNOSUS GG 1 CAPSULE. PO SCH ×2 (09:58→20:50)
[2018-10-31] MEDS: predniSONE 10 MG TABLET PO SCH (09:58)
[2018-10-31] MEDS: LISINOPRIL 20 MG TABLET PO SCH (09:59)
[2018-10-31] MEDS: DOXYCYCLINE HYCLATE 100 MG TABLET PO SCH ×2 (09:59→20:50)
[2018-10-31] MEDS: FLUoxetine HCL 20 MG CAPSULE PO SCH (09:59)
[2018-10-31] MEDS: ACETAMINOPHEN 500 MG TABLET PO PRN (10:00)
[2018-10-31] MEDS: LIDOCAINE (700MG/PATCH) PATCH. TD SCH (10:00)
[2018-10-31 11:00] VITALS: BP 133/82
--- NOTE | 2018-10-31 14:06 | PDOC ---
PROGRESS NOTES Chief Complaint Chief Complaint Trazodone overdose 300 mg-not suicidal, she thought she'd catch up from missing a few days dose worth Hypokalemia mild, 3.4 Hemoconcentration 15.1 AK I VMN creatinine 2.1 Depression NOS Obesity BMI 40 HYPOTENSION responsive to IV fluids History of Present Illness History of Present Illness Patient seems fairly lethargic and depressed Patient agreeable to still to go to [place] at [place], Patient may be started again on trazodone if need be. Since this unlikely is a suicide attempt and is more a result of her underlying psychiatric disorder. She is stable from the medical standpoint of view for transfer out of the hospital Vitals Vitals Vital Signs Date Time Temp Pulse Resp B/P (MAP) Pulse Ox O2 Delivery O2 Flow Rate FiO2 10/31/18 11:41 Nasal Cannula 2.0 10/31/18 11:00 97.5 73 18 133/82 (99) 92 97.5 Physical Exam General: Alert, Oriented X3, Cooperative, No acute distress Heart: Regular rate, Normal S1, No murmurs Lungs: Clear Abdomen: Normal bowel sounds, Soft, No tenderness, No hepatosplenomegaly, No masses Extremities: No clubbing, No cyanosis, No edema, Normal pulses, No tenderness/ swelling Skin: No rashes, No breakdown, No significant lesion Labs LABS Laboratory Tests Test 10/31/18 07:17 White Blood Count 5.1 x10^3/uL (4.0-11.0) Red Blood Count 4.68 x10^6/uL (3.50-5.40) Hemoglobin 14.6 g/dL (12.0-15.5) Hematocrit 44.0 % (36.0-47.0) Mean Corpuscular Volume 94 fL (79-100) Mean Corpuscular Hemoglobin 31 pg (25-35) Mean Corpuscular Hemoglobin Concent 33 g/dL (31-37) Red Cell Distribution Width 13.6 % (11.5-14.5) Platelet Count 192 x10^3/uL (140-400) Neutrophils (%) (Auto) 54 % (31-73) Lymphocytes (%) (Auto) 33 % (24-48) Monocytes (%) (Auto) 11 % (0-9) Eosinophils (%) (Auto) 2 % (0-3) Basophils (%) (Auto) 1 % (0-3) Neutrophils # (Auto) 2.8 x10^3uL (1.8-7.7) Lymphocytes # (Auto) 1.7 x10^3/uL (1.0-4.8) Monocytes # (Auto) 0.6 x10^3/uL (0.0-1.1) Eosinophils # (Auto) 0.1 x10^3/uL (0.0-0.7) Basophils # (Auto) 0.0 x10^3/uL (0.0-0.2) Sodium Level 143 mmol/L (136-145) Potassium Level 3.4 mmol/L (3.5-5.1) Chloride Level 101 mmol/L (98-107) Carbon Dioxide Level 33 mmol/L (21-32) Anion Gap 9 (6-14) Blood Urea Nitrogen 9 mg/dL (7-20) Creatinine 0.5 mg/dL (0.6-1.0) Estimated GFR (Cockcroft-Gault) 127.6 BUN/Creatinine Ratio 18 (6-20) Glucose Level 85 mg/dL (70-99) Calcium Level 9.6 mg/dL (8.5-10.1) Total Bilirubin 0.4 mg/dL (0.2-1.0) Aspartate Amino Transf (AST/SGOT) 13 U/L (15-37) Alanine Aminotransferase (ALT/SGPT) 29 U/L (14-59) Alkaline Phosphatase 66 U/L (46-116) Total Protein 6.6 g/dL (6.4-8.2) Albumin 3.0 g/dL (3.4-5.0) Albumin/Globulin Ratio 0.8 (1.0-1.7) Assessment and Plan Assessmemt and Plan Problems Medical Problems: (1) Altered level of consciousness Status: Acute (2) Hypokalemia Status: Acute (3) Hypotension Status: Acute (4) Renal insufficiency Status: Acute Comment Review of Relevant I have reviewed the following items sima (where applicable) has been applied. Labs Laboratory Tests Test 10/29/18 16:00 10/31/18 07:17 Erythrocyte Sedimentation Rate 5 (0-25) Ammonia 16 mcmol/L (11-34) Thyroid Stimulating Hormone (TSH) 0.965 uIU/mL (0.358-3.74) White Blood Count 5.1 x10^3/uL (4.0-11.0) Red Blood Count 4.68 x10^6/uL (3.50-5.40) Hemoglobin 14.6 g/dL (12.0-15.5) Hematocrit 44.0 % (36.0-47.0) Mean Corpuscular Volume 94 fL (79-100) Mean Corpuscular Hemoglobin 31 pg (25-35) Mean Corpuscular Hemoglobin Concent 33 g/dL (31-37) Red Cell Distribution Width 13.6 % (11.5-14.5) Platelet Count 192 x10^3/uL (140-400) Neutrophils (%) (Auto) 54 % (31-73) Lymphocytes (%) (Auto) 33 % (24-48) Monocytes (%) (Auto) 11 % (0-9) Eosinophils (%) (Auto) 2 % (0-3) Basophils (%) (Auto) 1 % (0-3) Neutrophils # (Auto) 2.8 x10^3uL (1.8-7.7) Lymphocytes # (Auto) 1.7 x10^3/uL (1.0-4.8) Monocytes # (Auto) 0.6 x10^3/uL (0.0-1.1) Eosinophils # (Auto) 0.1 x10^3/uL (0.0-0.7) Basophils # (Auto) 0.0 x10^3/uL (0.0-0.2) Sodium Level 143 mmol/L (136-145) Potassium Level 3.4 mmol/L (3.5-5.1) Chloride Level 101 mmol/L (98-107) Carbon Dioxide Level 33 mmol/L (21-32) Anion Gap 9 (6-14) Blood Urea Nitrogen 9 mg/dL (7-20) Creatinine 0.5 mg/dL (0.6-1.0) Estimated GFR (Cockcroft-Gault) 127.6 BUN/Creatinine Ratio 18 (6-20) Glucose Level 85 mg/dL (70-99) Calcium Level 9.6 mg/dL (8.5-10.1) Total Bilirubin 0.4 mg/dL (0.2-1.0) Aspartate Amino Transf (AST/SGOT) 13 U/L (15-37) Alanine Aminotransferase (ALT/SGPT) 29 U/L (14-59) Alkaline Phosphatase 66 U/L (46-116) Total Protein 6.6 g/dL (6.4-8.2) Albumin 3.0 g/dL (3.4-5.0) Albumin/Globulin Ratio 0.8 (1.0-1.7) Laboratory Tests Test 10/31/18 07:17 White Blood Count 5.1 x10^3/uL (4.0-11.0) Red Blood Count 4.68 x10^6/uL (3.50-5.40) Hemoglobin 14.6 g/dL (12.0-15.5) Hematocrit 44.0 % (36.0-47.0) Mean Corpuscular Volume 94 fL (79-100) Mean Corpuscular Hemoglobin 31 pg (25-35) Mean Corpuscular Hemoglobin Concent 33 g/dL (31-37) Red Cell Distribution Width 13.6 % (11.5-14.5) Platelet Count 192 x10^3/uL (140-400) Neutrophils (%) (Auto) 54 % (31-73) Lymphocytes (%) (Auto) 33 % (24-48) Monocytes (%) (Auto) 11 % (0-9) Eosinophils (%) (Auto) 2 % (0-3) Basophils (%) (Auto) 1 % (0-3) Neutrophils # (Auto) 2.8 x10^3uL (1.8-7.7) Lymphocytes # (Auto) 1.7 x10^3/uL (1.0-4.8) Monocytes # (Auto) 0.6 x10^3/uL (0.0-1.1) Eosinophils # (Auto) 0.1 x10^3/uL (0.0-0.7) Basophils # (Auto) 0.0 x10^3/uL (0.0-0.2) Sodium Level 143 mmol/L (136-145) Potassium Level 3.4 mmol/L (3.5-5.1) Chloride Level 101 mmol/L (98-107) Carbon Dioxide Level 33 mmol/L (21-32) Anion Gap 9 (6-14) Blood Urea Nitrogen 9 mg/dL (7-20) Creatinine 0.5 mg/dL (0.6-1.0) Estimated GFR (Cockcroft-Gault) 127.6 BUN/Creatinine Ratio 18 (6-20) Glucose Level 85 mg/dL (70-99) Calcium Level 9.6 mg/dL (8.5-10.1) Total Bilirubin 0.4 mg/dL (0.2-1.0) Aspartate Amino Transf (AST/SGOT) 13 U/L (15-37) Alanine Aminotransferase (ALT/SGPT) 29 U/L (14-59) Alkaline Phosphatase 66 U/L (46-116) Total Protein 6.6 g/dL (6.4-8.2) Albumin 3.0 g/dL (3.4-5.0) Albumin/Globulin Ratio 0.8 (1.0-1.7) Microbiology 10/25/18 Blood Culture - Final, Complete NO GROWTH AFTER 5 DAYS 10/25/18 Urine Culture - Final, Complete 10/25/18 Urine Culture Result 1 (LESTER) - Final, Complete Medications Current Medications Sodium Chloride 1,000 ml @ 1,000 mls/hr Q1H IV Last administered on 10/25/18at 17:39; Start 10/25/18 at 17:01; Stop 10/25/18 at 18:00; Status DC Sodium Chloride 1,000 ml @ 1,000 mls/hr 1X ONCE IV Last administered on 10/25/18at 17:40; Start 10/25/18 at 17:15; Stop 10/25/18 at 18:14; Status DC Naloxone HCl (Narcan) 0.4 mg 1X ONCE IV Last administered on 10/25/18at 17:42; Start 10/25/18 at 17:15; Stop 10/25/18 at 17:45; Status DC Sodium Chloride 1,000 ml @ 100 mls/hr Q10H IV ; Start 10/25/18 at 18:15; Status UNV Acetaminophen (Tylenol) 500 mg PRN Q6HRS PRN PO MILD PAIN / TEMP Last administered on 10/31/18at 10:00; Start 10/25/18 at 18:15 Potassium Chloride (Klor-Con) 40 meq 1X ONCE PO Last administered on 10/25/18at 19:11; Start 10/25/18 at 18:15; Stop 10/25/18 at 18:19; Status DC Ondansetron HCl (Zofran) 4 mg PRN Q6HRS PRN IV NAUSEA/VOMITING; Start 10/25/18 at 18:15 Sodium Chloride 1,000 ml @ 150 mls/hr Q6H40M IV Last administered on 10/26/18 14:15; Start 10/25/18 at 18:15; Stop 10/26/18 at 18:14; Status DC Prednisone (Prednisone) 30 mg 1X ONCE PO Last administered on 10/26/18 13:23; Start 10/26/18 at 13:00; Stop 10/26/18 at 13:13; Status DC Prednisone (Prednisone) 30 mg DAILY PO Last administered on 10/30/18 08:25; Start 10/27/18 at 09:00; Stop 10/30/18 at 10:24; Status DC Doxycycline Hyclate (Vibra-Tab) 100 mg BID PO Last administered on 10/31/18 09:59; Start 10/26/18 at 13:15 Potassium Chloride (Klor-Con) 40 meq 1X ONCE PO Last administered on 10/27/18at 10:17; Start 10/27/18 at 09:00; Stop 10/27/18 at 09:01; Status DC Divalproex Sodium (Depakote Er) 1,500 mg QHS PO Last administered on 10/30/18at 21:11; Start 10/27/18 at 21:00 Fluoxetine HCl (PROzac) 20 mg DAILY PO Last administered on 10/31/18 09:59; Start 10/27/18 at 09:00 Lisinopril (Prinivil) 20 mg DAILY PO Last administered on 10/31/18 09:59; Start 10/27/18 at 09:00 Paliperidone Palmitate (Invega Sustenna) 234 mg QMONTH IM ; Start 10/27/18 at 09:00; Stop 10/29/18 at 11:11; Status DC Olanzapine (ZyPREXA) 15 mg QHS PO Last administered on 10/30/18 21:11; Start 10/27/18 at 21:00 Trazodone HCl (Desyrel) 50 mg QHS PO Last administered on 10/27/18at 21:06; Start 10/27/18 at 21:00; Stop 10/28/18 at 08:31; Status DC Docusate Sodium (Colace) 100 mg BID PO Last administered on 10/31/18 09:57; Start 10/27/18 at 09:00 Doxycycline Hyclate 100 mg/ Dextrose 100 ml @ 50 mls/hr Q12HR IV ; Start 10/27/18 at 21:00; Status UNV Budesonide (Pulmicort) 0.5 mg RTBID NEB Last administered on 10/31/18at 05:46; Start 10/27/18 at 11:30 Lactobacillus Rhamnosus (Culturelle) 1 cap BID PO Last administered on 10/31/18 09:58; Start 10/27/18 at 21:00 Albuterol/ Ipratropium (Duoneb) 3 ml RTQID NEB Last administered on 10/31/18 11:40; Start 10/27/18 at 16:00 Fluticasone Propionate (Flonase) 2 spray DAILY NS Last administered on 10/31/18 09:56; Start 10/28/18 at 09:00 Potassium Chloride (Klor-Con) 40 meq 1X ONCE PO Last administered on 10/28/18 11:21; Start 10/28/18 at 10:30; Stop 10/28/18 at 10:31; Status DC Paliperidone Palmitate (Invega Sustenna) 234 mg QMONTH IM ; Start 10/30/18 at 09:00 Prednisone (Prednisone) 20 mg DAILY PO Last administered on 10/31/18 09:58; Start 10/31/18 at 09:00 Lidocaine (Lidoderm) 1 patch DAILY TD Last administered on 10/30/18at 14:17; Start 10/30/18 at 15:00 Miscellaneous (Lidoderm Patch Removal) 1 ea QHS MC Last administered on 10/30/18at 21:00; Start 10/30/18 at 21:00 Active Scripts Active Reported Lisinopril 20 Mg Tablet 1 Tab PO DAILY Depakote Er (Divalproex Sodium) 500 Mg Tab.er.24h 3 Tab PO QHS Invega Sustenna (Paliperidone Palmitate) 234 Mg/1.5 Ml Disp.syrin 1 Syr IM QMONTH Prozac (Fluoxetine Hcl) 20 Mg Capsule 20 Mg PO DAILY Olanzapine 15 Mg Tablet 15 Mg PO HS Trazodone Hcl 50 Mg Tablet 1 Tab PO QHS Vitals/I & O Vital Sign - Last 24 Hours 10/30/18 10/30/18 10/30/18 10/30/18 15:01 16:11 19:00 20:00 Temp 97.7 98.2 97.7 98.2 Pulse 82 71 Resp 18 18 B/P (MAP) 145/84 (104) 165/88 (113) Pulse Ox 90 93 93 O2 Delivery Nasal Cannula Nasal Cannula Nasal Cannula Nasal Cannula O2 Flow Rate 2.0 2.0 2.0 2.0 10/30/18 10/30/18 10/30/18 10/31/18 20:42 20:42 23:00 03:00 Temp 97.6 97.9 97.6 97.9 Pulse 75 80 Resp 18 18 B/P (MAP) 148/85 (106) 143/87 (105) Pulse Ox 93 93 O2 Delivery Nasal Cannula Nasal Cannula Nasal Cannula Nasal Cannula O2 Flow Rate 2.0 2.0 2.0 2.0 10/31/18 10/31/18 10/31/18 10/31/18 05:46 07:00 09:59 11:00 Temp 98.0 97.5 98.0 97.5 Pulse 75 75 73 Resp 18 18 B/P (MAP) 153/82 (105) 153/82 133/82 (99) Pulse Ox 91 92 O2 Delivery Nasal Cannula Nasal Cannula Nasal Cannula O2 Flow Rate 2.0 2.0 3.0 10/31/18 11:41 O2 Delivery Nasal Cannula O2 Flow Rate 2.0 Intake and Output 10/30/18 10/30/18 10/31/18 14:59 22:59 06:59 Intake Total 600 ml 300 ml Output Total 1000 ml Balance 600 ml 300 ml -1000 ml CROW HAYNES MD October 31, 2018 14:06
[2018-10-31 15:00] VITALS: BP 133/71
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
[2018-10-31 19:00] VITALS: BP 99/51
[2018-10-31] MEDS: OLANZapine 5 MG TABLET PO SCH (20:49)
[2018-10-31] MEDS: DIVALPROEX EXTENDED RELEASE 500 MG TAB.ER.24H. PO SCH (20:49)
[2018-10-31] MEDS: PATCH REMOVAL. MC SCH (20:53)
[2018-10-31 22:00] VITALS: BP 127/65
[2018-11-01 03:00] VITALS: BP 120/60
[2018-11-01 07:00] VITALS: BP 120/77
[2018-11-01] MEDS: IPRATRPIUM/ALBUTEROL 0.5/2.5MG 3 ML NEBU. NEB SCH ×4 (07:39→20:03)
[2018-11-01] MEDS: BUDESONIDE 0.5 MG/2 ML NEBU. NEB SCH ×2 (07:39→20:03)
[2018-11-01] MEDS: DOCUSATE SODIUM 100 MG CAPSULE. PO SCH ×2 (08:53→21:08)
[2018-11-01] MEDS: LACTOBACILLUS RHAMNOSUS GG 1 CAPSULE. PO SCH ×2 (08:53→21:07)
[2018-11-01] MEDS: LISINOPRIL 20 MG TABLET PO SCH (08:53)
[2018-11-01] MEDS: FLUTICASONE 50MCG/NASAL SPRAY 16GM BOTTLE. NS SCH (08:53)
[2018-11-01] MEDS: DOXYCYCLINE HYCLATE 100 MG TABLET PO SCH ×2 (08:53→21:08)
[2018-11-01] MEDS: FLUoxetine HCL 20 MG CAPSULE PO SCH (08:53)
[2018-11-01] MEDS: predniSONE 10 MG TABLET PO SCH (08:53)
[2018-11-01] MEDS: LIDOCAINE (700MG/PATCH) PATCH. TD SCH (08:54)
--- NOTE | 2018-11-01 09:05 | NUR ---
SW following pt. Bhavya from [facility] and Priscilla from [facility] will come in to visit pt today. Pt's renal case manager also reported she will be here to visit pt this morning. [facility] do not have a bed at this time. Will continue to follow.
[2018-11-01 11:00] VITALS: BP 107/64
--- NOTE | 2018-11-01 12:40 | NUR ---
WILNER following pt. Spoke with pt and pt's NICO Hansen about dc plan. Jade spoke with pt's mom to see if pt is able to live with her. Pt's mom reported she lives in a residential apartment and only 65 years and above is allowed to live in the residence. Pt's mother is agreeable with pt going to a alf. So far [facility] declined to take pt. Cindy from [facility] will come to visit pt today to fill out medicaid application as pt's medicaid insurance currently does not have LTC benefits. Cindy reported, if corporate approves pt, they will take her today. HERNÁN RN. Will continue to follow.
--- NOTE | 2018-11-01 14:52 | PDOC ---
PROGRESS NOTES Chief Complaint Chief Complaint Trazodone overdose 300 mg-not suicidal, she thought she'd catch up from missing a few days dose worth, currently in no apparent distress, poor historian Hypokalemia replacing Hemoconcentration 15.1 Acute renal failure secondary to prerenal azotemia resolved, initial CR was 2.1 Depression NOS Obesity BMI 40 History of Present Illness History of Present Illness Patient seems fairly lethargic and depressed Patient agreeable to still to go to [facility] [place], Patient may be started again on trazodone if need be. Since this unlikely is a suicide attempt and is more a result of her underlying psychiatric disorder. She is stable from the medical standpoint of view for transfer out of the hospital Vitals Vitals Vital Signs Date Time Temp Pulse Resp B/P (MAP) Pulse Ox O2 Delivery O2 Flow Rate FiO2 11/01/18 11:23 90 Nasal Cannula 2.0 11/01/18 11:00 98.2 89 18 107/64 (78) 98.2 Physical Exam General: Alert, Oriented X3, Cooperative, No acute distress Heart: Regular rate, Normal S1, No murmurs Lungs: Clear Abdomen: Normal bowel sounds, Soft, No tenderness, No hepatosplenomegaly, No masses Extremities: No clubbing, No cyanosis, No edema, Normal pulses, No tenderness/swelling Skin: No rashes, No breakdown, No significant lesion Assessment and Plan Assessmemt and Plan Problems Medical Problems: (1) Altered level of consciousness Status: Acute (2) Hypokalemia Status: Acute (3) Hypotension Status: Acute (4) Renal insufficiency Status: Acute Comment Review of Relevant I have reviewed the following items sima (where applicable) has been applied. Labs Laboratory Tests Test 10/31/18 07:17 White Blood Count 5.1 x10^3/uL (4.0-11.0) Red Blood Count 4.68 x10^6/uL (3.50-5.40) Hemoglobin 14.6 g/dL (12.0-15.5) Hematocrit 44.0 % (36.0-47.0) Mean Corpuscular Volume 94 fL (79-100) Mean Corpuscular Hemoglobin 31 pg (25-35) Mean Corpuscular Hemoglobin Concent 33 g/dL (31-37) Red Cell Distribution Width 13.6 % (11.5-14.5) Platelet Count 192 x10^3/uL (140-400) Neutrophils (%) (Auto) 54 % (31-73) Lymphocytes (%) (Auto) 33 % (24-48) Monocytes (%) (Auto) 11 % (0-9) Eosinophils (%) (Auto) 2 % (0-3) Basophils (%) (Auto) 1 % (0-3) Neutrophils # (Auto) 2.8 x10^3uL (1.8-7.7) Lymphocytes # (Auto) 1.7 x10^3/uL (1.0-4.8) Monocytes # (Auto) 0.6 x10^3/uL (0.0-1.1) Eosinophils # (Auto) 0.1 x10^3/uL (0.0-0.7) Basophils # (Auto) 0.0 x10^3/uL (0.0-0.2) Sodium Level 143 mmol/L (136-145) Potassium Level 3.4 mmol/L (3.5-5.1) Chloride Level 101 mmol/L (98-107) Carbon Dioxide Level 33 mmol/L (21-32) Anion Gap 9 (6-14) Blood Urea Nitrogen 9 mg/dL (7-20) Creatinine 0.5 mg/dL (0.6-1.0) Estimated GFR (Cockcroft-Gault) 127.6 BUN/Creatinine Ratio 18 (6-20) Glucose Level 85 mg/dL (70-99) Calcium Level 9.6 mg/dL (8.5-10.1) Total Bilirubin 0.4 mg/dL (0.2-1.0) Aspartate Amino Transf (AST/SGOT) 13 U/L (15-37) Alanine Aminotransferase (ALT/SGPT) 29 U/L (14-59) Alkaline Phosphatase 66 U/L (46-116) Total Protein 6.6 g/dL (6.4-8.2) Albumin 3.0 g/dL (3.4-5.0) Albumin/Globulin Ratio 0.8 (1.0-1.7) Microbiology 10/25/18 Blood Culture - Final, Complete NO GROWTH AFTER 5 DAYS 10/25/18 Urine Culture - Final, Complete 10/25/18 Urine Culture Result 1 (LESTER) - Final, Complete Medications Current Medications Sodium Chloride 1,000 ml @ 1,000 mls/hr Q1H IV Last administered on 10/25/18at 17:39; Start 10/25/18 at 17:01; Stop 10/25/18 at 18:00; Status DC Sodium Chloride 1,000 ml @ 1,000 mls/hr 1X ONCE IV Last administered on 10/25/18at 17:40; Start 10/25/18 at 17:15; Stop 10/25/18 at 18:14; Status DC Naloxone HCl (Narcan) 0.4 mg 1X ONCE IV Last administered on 10/25/18at 17:42; Start 10/25/18 at 17:15; Stop 10/25/18 at 17:45; Status DC Sodium Chloride 1,000 ml @ 100 mls/hr Q10H IV ; Start 10/25/18 at 18:15; Status UNV Acetaminophen (Tylenol) 500 mg PRN Q6HRS PRN PO MILD PAIN / TEMP Last administered on 10/31/18at 10:00; Start 10/25/18 at 18:15 Potassium Chloride (Klor-Con) 40 meq 1X ONCE PO Last administered on 10/25/18at 19:11; Start 10/25/18 at 18:15; Stop 10/25/18 at 18:19; Status DC Ondansetron HCl (Zofran) 4 mg PRN Q6HRS PRN IV NAUSEA/VOMITING; Start 10/25/18 at 18:15 Sodium Chloride 1,000 ml @ 150 mls/hr Q6H40M IV Last administered on 10/26/18at 14:15; Start 10/25/18 at 18:15; Stop 10/26/18 at 18:14; Status DC Prednisone (Prednisone) 30 mg 1X ONCE PO Last administered on 10/26/18 13:23; Start 10/26/18 at 13:00; Stop 10/26/18 at 13:13; Status DC Prednisone (Prednisone) 30 mg DAILY PO Last administered on 10/30/18at 08:25; Start 10/27/18 at 09:00; Stop 10/30/18 at 10:24; Status DC Doxycycline Hyclate (Vibra-Tab) 100 mg BID PO Last administered on 11/01/18at 08:53; Start 10/26/18 at 13:15 Potassium Chloride (Klor-Con) 40 meq 1X ONCE PO Last administered on 10/27/18 10:17; Start 10/27/18 at 09:00; Stop 10/27/18 at 09:01; Status DC Divalproex Sodium (Depakote Er) 1,500 mg QHS PO Last administered on 10/31/18 20:49; Start 10/27/18 at 21:00 Fluoxetine HCl (PROzac) 20 mg DAILY PO Last administered on 11/01/18 08:53; Start 10/27/18 at 09:00 Lisinopril (Prinivil) 20 mg DAILY PO Last administered on 11/01/18 08:53; Start 10/27/18 at 09:00 Paliperidone Palmitate (Invega Sustenna) 234 mg QMONTH IM ; Start 10/27/18 at 09:00; Stop 10/29/18 at 11:11; Status DC Olanzapine (ZyPREXA) 15 mg QHS PO Last administered on 10/31/18 20:49; Start 10/27/18 at 21:00 Trazodone HCl (Desyrel) 50 mg QHS PO Last administered on 10/27/18 21:06; Start 10/27/18 at 21:00; Stop 10/28/18 at 08:31; Status DC Docusate Sodium (Colace) 100 mg BID PO Last administered on 11/01/18 08:53; Start 10/27/18 at 09:00 Doxycycline Hyclate 100 mg/ Dextrose 100 ml @ 50 mls/hr Q12HR IV ; Start 10/27/18 at 21:00; Status UNV Budesonide (Pulmicort) 0.5 mg RTBID NEB Last administered on 11/01/18 07:39; Start 10/27/18 at 11:30 Lactobacillus Rhamnosus (Culturelle) 1 cap BID PO Last administered on 11/01/18 08:53; Start 10/27/18 at 21:00 Albuterol/ Ipratropium (Duoneb) 3 ml RTQID NEB Last administered on 11/01/18 11:22; Start 10/27/18 at 16:00 Fluticasone Propionate (Flonase) 2 spray DAILY NS Last administered on 11/01/18 08:53; Start 10/28/18 at 09:00 Potassium Chloride (Klor-Con) 40 meq 1X ONCE PO Last administered on 10/28/18 11:21; Start 10/28/18 at 10:30; Stop 10/28/18 at 10:31; Status DC Paliperidone Palmitate (Invega Sustenna) 234 mg QMONTH IM ; Start 10/30/18 at 09:00 Prednisone (Prednisone) 20 mg DAILY PO Last administered on 11/01/18 08:53; Start 10/31/18 at 09:00 Lidocaine (Lidoderm) 1 patch DAILY TD Last administered on 11/01/18 08:54; Start 10/30/18 at 15:00 Miscellaneous (Lidoderm Patch Removal) 1 ea QHS MC Last administered on 10/30/18 21:00; Start 10/30/18 at 21:00 Active Scripts Active Reported Lisinopril 20 Mg Tablet 1 Tab PO DAILY Depakote Er (Divalproex Sodium) 500 Mg Tab.er.24h 3 Tab PO QHS Invega Sustenna (Paliperidone Palmitate) 234 Mg/1.5 Ml Disp.syrin 1 Syr IM QMONTH Prozac (Fluoxetine Hcl) 20 Mg Capsule 20 Mg PO DAILY Olanzapine 15 Mg Tablet 15 Mg PO HS Trazodone Hcl 50 Mg Tablet 1 Tab PO QHS Vitals/I & O Vital Sign - Last 24 Hours 10/31/18 10/31/18 10/31/18 10/31/18 15:00 16:14 19:00 19:56 Temp 98.3 97.7 98.3 97.7 Pulse 81 96 Resp 18 17 B/P (MAP) 133/71 (91) 99/51 (67) Pulse Ox 95 93 92 O2 Delivery Nasal Cannula Nasal Cannula Nasal Cannula Nasal Cannula O2 Flow Rate 3.0 2.0 3.0 3.0 10/31/18 10/31/18 10/31/18 11/01/18 20:25 20:25 22:00 03:00 Temp 97.7 97.7 97.7 97.7 Pulse 78 75 Resp 17 17 B/P (MAP) 127/65 (85) 120/60 (80) Pulse Ox 97 96 O2 Delivery Nasal Cannula Nasal Cannula Nasal Cannula Nasal Cannula O2 Flow Rate 2.0 2.0 3.0 3.0 11/01/18 11/01/18 11/01/18 11/01/18 07:00 07:40 08:00 08:53 Temp 97.4 97.4 Pulse 78 78 Resp 18 B/P (MAP) 120/77 (91) 120/77 Pulse Ox 94 90 O2 Delivery Nasal Cannula Nasal Cannula Nasal Cannula O2 Flow Rate 3.0 2.0 3.0 11/01/18 11/01/18 11:00 11:23 Temp 98.2 98.2 Pulse 89 Resp 18 B/P (MAP) 107/64 (78) Pulse Ox 87 90 O2 Delivery Nasal Cannula Nasal Cannula O2 Flow Rate 3.0 2.0 Intake and Output 10/31/18 10/31/18 11/01/18 15:00 23:00 07:00 Intake Total 60 ml 0 ml Balance 60 ml 0 ml CROW HAYNES MD November 01, 2018 14:52
[2018-11-01 15:00] VITALS: BP 120/72
--- NOTE | 2018-11-01 15:39 | NUR ---
SW following. WILNER met with pt and Cindy from [facility] to complete Medicaid marija. Pt was not able to remember some answers regarding her finances. Cindy had reached out to pt's mother and is awaiting on bank statements. Will continue to follow.
[2018-11-01 19:00] VITALS: BP 141/87
[2018-11-01] MEDS: PATCH REMOVAL. MC SCH (21:00)
[2018-11-01] MEDS: OLANZapine 5 MG TABLET PO SCH (21:07)
[2018-11-01] MEDS: DIVALPROEX EXTENDED RELEASE 500 MG TAB.ER.24H. PO SCH (21:08)
[2018-11-01 23:01] VITALS: BP 140/80
[2018-11-02 03:09] VITALS: BP 125/72
[2018-11-02 07:00] VITALS: BP 121/74
[2018-11-02] MEDS: BUDESONIDE 0.5 MG/2 ML NEBU. NEB SCH (07:44)
[2018-11-02] MEDS: IPRATRPIUM/ALBUTEROL 0.5/2.5MG 3 ML NEBU. NEB SCH ×3 (07:44→15:34)
[2018-11-02] MEDS: LISINOPRIL 20 MG TABLET PO SCH (08:58)
[2018-11-02] MEDS: predniSONE 10 MG TABLET PO SCH (08:59)
[2018-11-02] MEDS: DOXYCYCLINE HYCLATE 100 MG TABLET PO SCH (08:59)
[2018-11-02] MEDS: DOCUSATE SODIUM 100 MG CAPSULE. PO SCH (08:59)
[2018-11-02] MEDS: FLUoxetine HCL 20 MG CAPSULE PO SCH (08:59)
[2018-11-02] MEDS: LACTOBACILLUS RHAMNOSUS GG 1 CAPSULE. PO SCH (08:59)
[2018-11-02] MEDS: LIDOCAINE (700MG/PATCH) PATCH. TD SCH (09:00)
--- NOTE | 2018-11-02 09:43 | NUR ---
SW following pt. Spoke with Cindy at [facility] and Pt's will bring bank statements to [facility] at 1230. Cindy also reported she is awaiting on corporate approval to admit pt. Will continue to follow.
[2018-11-02 11:00] VITALS: BP 120/85
[2018-11-02] MEDS: FLUTICASONE 50MCG/NASAL SPRAY 16GM BOTTLE. NS SCH (11:36)
--- NOTE | 2018-11-02 11:36 | NUR ---
Fluticasone arrived from pharmacy; administered.
--- NOTE | 2018-11-02 13:41 | PDOC ---
PROGRESS NOTES Chief Complaint Chief Complaint Trazodone overdose 300 mg-not suicidal, she thought she'd catch up from missing a few days dose worth, currently in no apparent distress, poor historian Hypokalemia replacing Hemoconcentration 15.1 Acute renal failure secondary to prerenal azotemia resolved, initial CR was 2.1 Depression NOS Obesity BMI 40 History of Present Illness History of Present Illness Patient seems to be in no acute distress, patient is currently homeless, will discuss with CM regarding discharge planning. Patient agreeable to still to go to [facility] [place], Patient may be started again on trazodone if need be. Since this unlikely is a suicide attempt and is more a result of her underlying psychiatric disorder. She is stable from the medical standpoint of view for transfer out of the hospital Vitals Vitals Vital Signs Date Time Temp Pulse Resp B/P (MAP) Pulse Ox O2 Delivery O2 Flow Rate FiO2 11/02/18 11:19 Nasal Cannula 3.0 11/02/18 11:00 97.5 79 18 120/85 (97) 92 97.5 Physical Exam General: Alert, Oriented X3, Cooperative, No acute distress Heart: Regular rate, Normal S1, No murmurs Lungs: Clear Abdomen: Normal bowel sounds, Soft, No tenderness, No hepatosplenomegaly, No masses Extremities: No clubbing, No cyanosis, No edema, Normal pulses, No tenderness/swelling Skin: No rashes, No breakdown, No significant lesion Assessment and Plan Assessmemt and Plan Problems Medical Problems: (1) Altered level of consciousness Status: Acute (2) Hypokalemia Status: Acute (3) Hypotension Status: Acute (4) Renal insufficiency Status: Acute Comment Review of Relevant I have reviewed the following items sima (where applicable) has been applied. Labs Microbiology 10/25/18 Blood Culture - Final, Complete NO GROWTH AFTER 5 DAYS 10/25/18 Urine Culture - Final, Complete 10/25/18 Urine Culture Result 1 (LESTER) - Final, Complete Medications Current Medications Sodium Chloride 1,000 ml @ 1,000 mls/hr Q1H IV Last administered on 10/25/18at 17:39; Start 10/25/18 at 17:01; Stop 10/25/18 at 18:00; Status DC Sodium Chloride 1,000 ml @ 1,000 mls/hr 1X ONCE IV Last administered on 10/25/18at 17:40; Start 10/25/18 at 17:15; Stop 10/25/18 at 18:14; Status DC Naloxone HCl (Narcan) 0.4 mg 1X ONCE IV Last administered on 10/25/18 17:42; Start 10/25/18 at 17:15; Stop 10/25/18 at 17:45; Status DC Sodium Chloride 1,000 ml @ 100 mls/hr Q10H IV ; Start 10/25/18 at 18:15; Status UNV Acetaminophen (Tylenol) 500 mg PRN Q6HRS PRN PO MILD PAIN / TEMP Last administered on 10/31/18 10:00; Start 10/25/18 at 18:15 Potassium Chloride (Klor-Con) 40 meq 1X ONCE PO Last administered on 10/25/18 19:11; Start 10/25/18 at 18:15; Stop 10/25/18 at 18:19; Status DC Ondansetron HCl (Zofran) 4 mg PRN Q6HRS PRN IV NAUSEA/VOMITING; Start 10/25/18 at 18:15 Sodium Chloride 1,000 ml @ 150 mls/hr Q6H40M IV Last administered on 10/26/18 14:15; Start 10/25/18 at 18:15; Stop 10/26/18 at 18:14; Status DC Prednisone (Prednisone) 30 mg 1X ONCE PO Last administered on 10/26/18 13:23; Start 10/26/18 at 13:00; Stop 10/26/18 at 13:13; Status DC Prednisone (Prednisone) 30 mg DAILY PO Last administered on 10/30/18 08:25; Start 10/27/18 at 09:00; Stop 10/30/18 at 10:24; Status DC Doxycycline Hyclate (Vibra-Tab) 100 mg BID PO Last administered on 11/02/18 08:59; Start 10/26/18 at 13:15 Potassium Chloride (Klor-Con) 40 meq 1X ONCE PO Last administered on 10/27/18 10:17; Start 10/27/18 at 09:00; Stop 10/27/18 at 09:01; Status DC Divalproex Sodium (Depakote Er) 1,500 mg QHS PO Last administered on 11/01/18 21:08; Start 10/27/18 at 21:00 Fluoxetine HCl (PROzac) 20 mg DAILY PO Last administered on 11/02/18 08:59; Start 10/27/18 at 09:00 Lisinopril (Prinivil) 20 mg DAILY PO Last administered on 11/02/18 08:58; Start 10/27/18 at 09:00 Paliperidone Palmitate (Invega Sustenna) 234 mg QMONTH IM ; Start 10/27/18 at 09:00; Stop 10/29/18 at 11:11; Status DC Olanzapine (ZyPREXA) 15 mg QHS PO Last administered on 11/01/18 21:07; Start 10/27/18 at 21:00 Trazodone HCl (Desyrel) 50 mg QHS PO Last administered on 10/27/18 21:06; Start 10/27/18 at 21:00; Stop 10/28/18 at 08:31; Status DC Docusate Sodium (Colace) 100 mg BID PO Last administered on 11/02/18 08:59; Start 10/27/18 at 09:00 Doxycycline Hyclate 100 mg/ Dextrose 100 ml @ 50 mls/hr Q12HR IV ; Start 10/27/18 at 21:00; Status UNV Budesonide (Pulmicort) 0.5 mg RTBID NEB Last administered on 11/02/18 07:44; Start 10/27/18 at 11:30 Lactobacillus Rhamnosus (Culturelle) 1 cap BID PO Last administered on 11/02/18 08:59; Start 10/27/18 at 21:00 Albuterol/ Ipratropium (Duoneb) 3 ml RTQID NEB Last administered on 11/02/18 11:19; Start 10/27/18 at 16:00 Fluticasone Propionate (Flonase) 2 spray DAILY NS Last administered on 11/02 11:36; Start 10/28/18 at 09:00 Potassium Chloride (Klor-Con) 40 meq 1X ONCE PO Last administered on 10/28/18 11:21; Start 10/28/18 at 10:30; Stop 10/28/18 at 10:31; Status DC Paliperidone Palmitate (Invega Sustenna) 234 mg QMONTH IM ; Start 10/30/18 at 09:00 Prednisone (Prednisone) 20 mg DAILY PO Last administered on 11/02/18at 08:59; Start 10/31/18 at 09:00 Lidocaine (Lidoderm) 1 patch DAILY TD Last administered on 11/02/18at 09:00; Start 10/30/18 at 15:00 Miscellaneous (Lidoderm Patch Removal) 1 ea QHS MC Last administered on 10/30/18at 21:00; Start 10/30/18 at 21:00 Active Scripts Active Reported Lisinopril 20 Mg Tablet 1 Tab PO DAILY Depakote Er (Divalproex Sodium) 500 Mg Tab.er.24h 3 Tab PO QHS Invega Sustenna (Paliperidone Palmitate) 234 Mg/1.5 Ml Disp.syrin 1 Syr IM QMONTH Prozac (Fluoxetine Hcl) 20 Mg Capsule 20 Mg PO DAILY Olanzapine 15 Mg Tablet 15 Mg PO HS Trazodone Hcl 50 Mg Tablet 1 Tab PO QHS Vitals/I & O Vital Sign - Last 24 Hours 11/01/18 11/01/18 11/01/18 11/01/18 15:00 16:09 19:00 20:02 Temp 98.1 97.2 98.1 97.2 Pulse 84 81 Resp 18 20 B/P (MAP) 120/72 (88) 141/87 (105) Pulse Ox 93 93 100 O2 Delivery Nasal Cannula Nasal Cannula Room Air Nasal Cannula O2 Flow Rate 3.0 2.5 3.0 11/01/18 11/01/18 11/02/18 11/02/18 20:04 23:01 03:09 07:00 Temp 98.0 98.2 98.2 98.0 98.2 98.2 Pulse 92 79 91 Resp 20 20 17 B/P (MAP) 140/80 (100) 125/72 (89) 121/74 (90) Pulse Ox 93 93 91 91 O2 Delivery Nasal Cannula Room Air Room Air Room Air O2 Flow Rate 2.5 11/02/18 11/02/18 11/02/18 11/02/18 07:46 08:00 08:58 11:00 Temp 97.5 97.5 Pulse 91 79 Resp 18 B/P (MAP) 121/74 120/85 (97) Pulse Ox 93 92 O2 Delivery Nasal Cannula Nasal Cannula Room Air O2 Flow Rate 3.0 3.0 11/02/18 11:19 O2 Delivery Nasal Cannula O2 Flow Rate 3.0 Intake and Output 11/01/18 11/01/18 11/02/18 15:00 23:00 07:00 Output Total 3 ml 0 ml Balance -3 ml 0 ml CROW HAYNES MD November 02, 2018 13:41
--- NOTE | 2018-11-02 14:54 | SNU/HH DC ---
DISCHARGE ORDERS DISCHARGE INFORMATION: DISCHARGE DATE: November 02, 2018 FINAL DIAGNOSIS Problems Medical Problems: (1) Altered level of consciousness Status: Acute (2) Hypokalemia Status: Acute (3) Hypotension Status: Acute (4) Renal insufficiency Status: Acute CONDITION ON DISCHARGE: Stable CODE STATUS: Code Status: Full RETIREMENT: SNF STAY <30 DAYS: Yes POST DISCHARGE ORDERS: ACTIVITY ORDERS: No restrictions WEIGHT BEARING STATUS: No restrictions TREATMENT/EQUIPMENT ORDERS: RESPIRATORY EQUIPMENT NEEDED: Oxygen Physical Therapy For: Evalulation/Treatment DISCHARGE MEDICATIONS: Home Meds Reported Medications Lisinopril (LISINOPRIL) 20 Mg Tablet, 1 TAB PO DAILY for htn, #30 TAB 5 Refills 10/26/18 Divalproex Sodium (DEPAKOTE ER) 500 Mg Tab.er.24h, 3 TAB PO QHS for mental health, #90 TAB 2 Refills 10/26/18 Paliperidone Palmitate (INVEGA SUSTENNA) 234 Mg/1.5 Ml Disp.syrin, 1 SYR IM QMONTH for anti psychotic, #1 SYR 3 Refills 10/26/18 Fluoxetine Hcl (PROZAC) 20 Mg Capsule, 20 MG PO DAILY for depression, CAP 10/26/18 Olanzapine (OLANZAPINE) 15 Mg Tablet, 15 MG PO HS for mental health, TAB 10/26/18 Trazodone Hcl (TRAZODONE HCL) 50 Mg Tablet, 1 TAB PO QHS for depression, #30 TAB 1 Refill 10/26/18 CROW HAYNES MD November 02, 2018 14:53
--- NOTE | 2018-11-02 14:55 | NUR ---
Patient will be discharging to [facility] at approximately 16:45 as the scheduled transportation time.
[2018-11-02] MEDS ORDERED: METH4TAB2 PO (14:57)
--- NOTE | 2018-11-02 15:11 | PDOC3 ---
Discharge Summary Visit Information Date of Admission: October 25, 2018 Date of Discharge: November 02, 2018 Admitting Diagnosis: 1. Acute respiratory failure. Final Diagnosis Problems Medical Problems: (1) Altered level of consciousness resolved most likely secondary to intial hypoxemia Status: Acute (2) Hypokalemia Status: Acute (3) Hypotension Status: Acute (4) Renal insufficiency resolved Status: Acute Brief Hospital Course Allergies Allergies Coded Allergies Type Severity Reaction Last Updated Verified Penicillins Allergy Intermediate 10/25/18 Yes Vital Signs Vital Signs Date Time Temp Pulse Resp B/P (MAP) Pulse Ox O2 Delivery O2 Flow Rate FiO2 11/02/18 11:19 Nasal Cannula 3.0 11/02/18 11:00 97.5 79 18 120/85 (97) 92 97.5 Brief Hospital Course SHe is not the best historian, home meds are still pending, she has history of d epression and supposed to be admitted to [facility] today but was sent here because of confusion. Now relays to me history of taking 300 mg trazodone from her usual 100 mg because she was not able to take those pills for a few days as she thought she'd catch up. Potassium 3.4 with a creatinine 2.1 unknown baseline. Mild hemoconcentration 15.6. Seems teary-eyed or not in distress but worried demeanor. BP initially low, responsive to IV fluids. Initially oliguria from straight catheter (thick urine) so Horton catheter placed. Blood pressure better with IV fluids. Got a dose of Narcan and is awake- quite shaky, no seizures. NO fam at bedside Patient seen in consultation by Dr Barber. Patient was started on broad spectrum antibiotics and steroids. She responded well to the therapy she was initially admitted to the ICU and transitioned to the Medical floor once the acute phase was over, patient will be going to a fpc since she was evicted from her previous facility patent was given reassurance, seh si hemodynamically stable to discharged from the medical stand point of view. Our consultants's recommendations were greatly appreciated Discharge Information Condition at Discharge: Improved Follow Up: Weeks Disposition/Orders: D/C to Another Facility Scheduled Divalproex Sodium (Depakote Er) 500 Mg Tab.er.24h, 3 TAB PO QHS for mental health, #90 Ref 2 (Reported) Entered as Reported by: SAMI DEWITT on 10/26/18734 Last Action: Continued on 10/27/18837 by OMER HERNANDEZ Fluoxetine Hcl (Prozac) 20 Mg Capsule, 20 MG PO DAILY for depression, (Reported) Entered as Reported by: SAMI DEWITT on 10/26/18734 Last Action: Continued on 10/27/18837 by OMER HERNANDEZ Lisinopril (Lisinopril) 20 Mg Tablet, 1 TAB PO DAILY for htn, #30 Ref 5 (Reported) Entered as Reported by: SAMI DEWITT on 10/26/18833 Last Taken: Unknown Dose on 10/25/18799 Last Action: Continued on 10/27/18837 by OMER HERNANDEZ Methylprednisolone (Medrol) 4 Mg Tab.ds.pk, 1 PKG PO UD for bronchitis, #1 Prescribed by: CROW HAYNES MD on 11/02/181456 Olanzapine (Olanzapine) 15 Mg Tablet, 15 MG PO HS for mental health, (Reported) Entered as Reported by: SAMI DEWITT on 10/26/18734 Last Action: Converted on 10/27/18837 by OMER HERNANDEZ Paliperidone Palmitate (Invega Sustenna) 234 Mg/1.5 Ml Disp.syrin, 1 SYR IM QMONTH for anti psychotic, #1 Ref 3 (Reported) Entered as Reported by: SAMI DEWITT on 10/26/18734 Last Action: Continued on 10/27/18837 by OMER HERNANDEZ Trazodone Hcl (Trazodone Hcl) 50 Mg Tablet, 1 TAB PO QHS for depression, #30 Ref 1 (Reported) Entered as Reported by: SAMI DEWITT on 10/26/18734 Last Action: Converted on 10/27/18837 by CROW HESTER MD November 02, 2018 15:11
--- NOTE | 2018-11-02 15:19 | NUR ---
SW following pt. Pt has been accepted at [facility]. CARE assessment completed and faxed to [facility]. A copy of certification placed in pt's chart and provided to pt as well. SW phoned and faxed orders/CARE assessment to [facility]. Pt will transport via facility arranged w/c van at 1645. Pt aware of plans and agreeable. Pt's mother notified of plan and SW left a voice mail to pt's NICO Hansen. RN notified.
--- NOTE | 2018-11-02 17:00 | NUR ---
PACKER [employer]PER[employer] stated VS @ 15:00 were held due to patient discharging.
--- NOTE | 2018-11-02 17:17 | NUR ---
Patient discharged from hospital in stable condition with all belongings and medications, via wheelchair van accompanied by facility advanced manager.
== END 2018-11-02 17:17 | DRG 917 ==
LOC: ER 16:54 → 1 WEST ICU 17:52 → 5 NORTH 10-26 14:30
PROVIDERS: ADMIT Internal Medicine; ATTEND Internal Medicine
DX: T43.211A Poisoning by selective serotonin and norepinephrine reuptake inhibitors, accidental (unintentional), initial encounter (principal); J96.01 Acute respiratory failure with hypoxia; N17.0 Acute kidney failure with tubular necrosis; J44.1 Chronic obstructive pulmonary disease with (acute) exacerbation; J98.11 Atelectasis; N39.0 Urinary tract infection, site not specified; E66.9 Obesity, unspecified; E87.6 Hypokalemia; F17.210 Nicotine dependence, cigarettes, uncomplicated; F25.9 Schizoaffective disorder, unspecified; F32.9 Major depressive disorder, single episode, unspecified; F41.9 Anxiety disorder, unspecified; I95.9 Hypotension, unspecified; Y92.89 Other specified places as the place of occurrence of the external cause; Z88.0 Allergy status to penicillin; Z68.39 Body mass index [BMI] 39.0-39.9, adult
CPT/HCPCS: 36415; 36600; 70450; 71045; 80048; 80053; 80076; 80307; 80329; 81001; 82140; 82805; 83605; 83735; 84443; 85025; 85610; 85651; 87040; 87086; 87641; 93005; 94618; 94640; 94760; 96361; 96374; 99291; G0480; J2310; J7030; J7512; J7620; J7626; 97116; 97530; 97535

== ENCOUNTER 2021-10-21 19:22 | Inpatient (IN) | payer MEDICARE, MEDICAID ==
[~2021-10-21] VITALS: Ht 172.7 cm; Wt 111.9 kg
[~2021-10-21 19:22] MED LIST: DIVA500T4 PO; FLUO20CA16 PO; LISI20TA18 PO; METH4TAB2 PO; OLAN15TA15 PO; PALI234D IM; TRAZ-118 PO
[2021-10-21 20:22] LABS: BACTERIA,URINE 0 /HPF (0-FEW)
[2021-10-21 20:23] LABS: RBC,URINE 0 /HPF (0-2); WBC,URINE OCC /HPF (0-4)
[2021-10-21 20:46] LABS: BARBITURATES NEG (NEG); BENZODIAZEPINES NEG (NEG); CANNABINOIDS POS (NEG); COCAINE NEG (NEG); METHADONE NEG (NEG); OPIATES NEG (NEG); PHENCYCLIDINE NEG (NEG)
[2021-10-21 20:51] LABS: AMPHETAMINE/METHAMPHETAMINE NEG (NEG)
[2021-10-21 20:52] LABS: BASO # 0.1 x10^3/uL (0.0-0.2); BASO % 1 % (0-3); EOS % 1 % (0-3); HEMATOCRIT 40.4 % (36.0-47.0); HEMOGLOBIN 13.7 g/dL (12.0-15.5); LYMPH # 1.8 x10^3/uL (1.0-4.8); LYMPH % 21 % (24-48); MEAN CORPUSCULAR HEMOGLOBIN 31 pg (25-35); MEAN CORPUSCULAR HGB CONC 34 g/dL (31-37); MEAN CORPUSCULAR VOLUME 92 fL (79-100); MONO # 0.9 x10^3/uL (0.0-1.1); MONO % 11 % (0-9); NEUT # 5.8 x10^3/uL (1.8-7.7); NEUT % 67 % (31-73); PLATELET COUNT 371 x10^3/uL (140-400); RED BLOOD COUNT 4.41 x10^6/uL (3.50-5.40); RED CELL DISTRIBUTION WIDTH 14.8 % (11.5-14.5); WHITE BLOOD COUNT 8.8 x10^3/uL (4.0-11.0)
[2021-10-21 21:03] LABS: CALCIUM 9.7 mg/dL (8.5-10.1); CREATININE 0.6 mg/dL (0.6-1.0); GFR 102.3; POTASSIUM 4.3 mmol/L (3.5-5.1)
[2021-10-21 21:09] LABS: ALBUMIN 3.3 g/dL (3.4-5.0); ALBUMIN/GLOBULIN RATIO 0.7 (1.0-1.7); TOTAL BILIRUBIN 0.2 mg/dL (0.2-1.0); TOTAL PROTEIN 7.9 g/dL (6.4-8.2)
--- NOTE | 2021-10-21 21:47 | RAD ---
Exam: CT head INDICATION: Altered mental status TECHNIQUE: Sequential axial images through the head were obtained without the administration of IV co ntrast. Exposure: One or more of the following in the visualized dose reduction techniques were utilized for this examination: 1. Automated exposure control 2. Adjustment of the MA and/or KV according to patient size 3. Use of iterative of reconstructive technique Comparisons: 10/29/2018 FINDINGS: No focal parenchymal lesion or hemorrhage is identified. There is no midline shift or sulcal effaceme nt. Moderate patchy hypodensity in the periventricular white matter, similar prior. No acute vascular ter ritory infarction is identified. Watson-white distinction is preserved. The ventricular system is within normal limits without compression hydrocephalus. The basal cisterns are well maintained. The visualized portions of the paranasal sinuses and mastoid air cells are well-pneumatized. No acute fractures. IMPRESSION: Chronic changes without acute intracranial abnormality. Electronically signed by: Bebo Gallegos MD (10/21/2021 9:44 PM) [facility]
--- NOTE | 2021-10-21 21:55 | PHYS DOC ---
Past Medical History Additional Past Medical Histor: SCHIZOAFFECTIVE DISORDER- DEPRESSIVE Past Surgical History: No Surgical History Smoking Status: Current Every Day Smoker Alcohol Use: None Drug Use: None General Adult EDM: Chief Complaint: ALTERED MENTAL STATUS HPI: HPI: Patient is a 61 year old female who presents from a nursing home with confusion. Nursing staff spoke to the nursing home who states that normally she is alert and oriented x3 and is the leader of a couple of groups at the facility. She has privileges to leave from time to time as well. Patient on arrival will not tell us what she did but states that she use drugs. After she has been here for a while she told the nurse that she did some possible edibles. The patient is difficult to get a story from if she stares off into space without answering questions appropriately. She knows that she is in the hospital but cannot answer any complex questions beyond that. Review of Systems: Review of Systems: Cannot perform due to acuity of condition Heart Score: C/O Chest Pain: No Risk Factors: Risk Factors: DM, Current or recent (<one month) smoker, HTN, HLP, family history of CAD, obesity. Risk Scores: Score 0 - 3: 2.5% MACE over next 6 weeks - Discharge Home Score 4 - 6: 20.3% MACE over next 6 weeks - Admit for Clinical Observation Score 7 - 10: 72.7% MACE over next 6 weeks - Early Invasive Strategies Allergies: Allergies: Allergies Coded Allergies Type Severity Reaction Last Updated Verified Penicillins Allergy Intermediate 10/25/18 Yes Physical Exam: PE: Constitutional: Well developed, well nourished, no acute distress, non-toxic appearance. [] HENT: Normocephalic, atraumatic, bilateral external ears normal, oropharynx moist, no oral exudates, nose normal. [] Eyes: PERRLA, EOMI, conjunctiva normal, no discharge. [] Neck: Normal range of motion, no tenderness, supple, no stridor. [] Cardiovascular:Heart rate regular rhythm, no murmur [] Lungs & Thorax: Bilateral breath sounds clear to auscultation [] Abdomen: Bowel sounds normal, soft, no tenderness, no masses, no pulsatile masses. [] Skin: Warm, dry, no erythema, no rash. [] Back: No tenderness, no CVA tenderness. [] Extremities: No tenderness, no cyanosis, no clubbing, ROM intact, no edema. [] Neurologic: Alert but does not answer questions appropriately and stares off into space Current Patient Data: Labs: Laboratory Tests Test 10/21/21 19:57 10/21/21 20:35 Urine Collection Type U cath Urine Color (Auto) Yellow Urine Turbidity Clear Urine pH (Auto) 6.0 (<5.0-8.0) Urine Specific [place] 1.030 (1.000-1.030) Urine Protein (Auto) 30 mg/dL (Negative) Urine Glucose (Auto)(UA) Negative mg/dL (Negative) Urine Ketones (Auto) 10 mg/dL (Negative) Urine Blood (Auto) Negative (Negative) Urine Nitrite Negative (Negative) Urine Bilirubin (Auto) Negative (Negative) Urine Urobilinogen (Auto) 4 mg/dL (Normal) Urine Leukocyte Esterase (Auto) Negative (Negative) Urine RBC 0 /HPF (0-2) Urine WBC Occ /HPF (0-4) Urine Squamous Epithelial Cells Mod /LPF Urine Bacteria 0 /HPF (0-FEW) Urine Mucus Mod /LPF Urine Opiates Screen Neg (NEG) Urine Methadone Screen Neg (NEG) Urine Barbiturates Neg (NEG) Urine Phencyclidine Screen Neg (NEG) Urine Amphetamine/Methamphetamine Neg (NEG) Urine Benzodiazepines Screen Neg (NEG) Urine Cocaine Screen Neg (NEG) Urine Cannabinoids Screen Pos (NEG) Urine Ethyl Alcohol Neg (NEG) White Blood Count 8.8 x10^3/uL (4.0-11.0) Red Blood Count 4.41 x10^6/uL (3.50-5.40) Hemoglobin 13.7 g/dL (12.0-15.5) Hematocrit 40.4 % (36.0-47.0) Mean Corpuscular Volume 92 fL (79-100) Mean Corpuscular Hemoglobin 31 pg (25-35) Mean Corpuscular Hemoglobin Concent 34 g/dL (31-37) Red Cell Distribution Width 14.8 % (11.5-14.5) H Platelet Count 371 x10^3/uL (140-400) Neutrophils (%) (Auto) 67 % (31-73) Lymphocytes (%) (Auto) 21 % (24-48) L Monocytes (%) (Auto) 11 % (0-9) H Eosinophils (%) (Auto) 1 % (0-3) Basophils (%) (Auto) 1 % (0-3) Neutrophils # (Auto) 5.8 x10^3/uL (1.8-7.7) Lymphocytes # (Auto) 1.8 x10^3/uL (1.0-4.8) Monocytes # (Auto) 0.9 x10^3/uL (0.0-1.1) Eosinophils # (Auto) 0.0 x10^3/uL (0.0-0.7) Basophils # (Auto) 0.1 x10^3/uL (0.0-0.2) Sodium Level 135 mmol/L (136-145) L Potassium Level 4.3 mmol/L (3.5-5.1) Chloride Level 94 mmol/L (98-107) L Carbon Dioxide Level 32 mmol/L (21-32) Anion Gap 9 (6-14) Blood Urea Nitrogen 11 mg/dL (7-20) Creatinine 0.6 mg/dL (0.6-1.0) Estimated GFR (Cockcroft-Gault) 102.3 BUN/Creatinine Ratio 18 (6-20) Glucose Level 109 mg/dL (70-99) H Calcium Level 9.7 mg/dL (8.5-10.1) Total Bilirubin 0.2 mg/dL (0.2-1.0) Aspartate Amino Transferase (AST) 29 U/L (15-37) Alanine Aminotransferase (ALT) 45 U/L (14-59) Alkaline Phosphatase 99 U/L (46-116) Ammonia 46 mcmol/L (11-34) H Total Protein 7.9 g/dL (6.4-8.2) Albumin 3.3 g/dL (3.4-5.0) L Albumin/Globulin Ratio 0.7 (1.0-1.7) L Thyroid Stimulating Hormone (TSH) 1.803 uIU/mL (0.358-3.74) Ethyl Alcohol Level < 10 mg/dL (0-10) Laboratory Tests 10/21/21 20:35 Laboratory Tests 10/21/21 20:35 Vital Signs: Vital Signs Date Time Temp Pulse Resp B/P (MAP) Pulse Ox O2 Delivery O2 Flow Rate FiO2 10/21/21 19:29 98.1 83 16 135/69 (91) 94 Room Air 98.1 EKG: EKG: [] Radiology/Procedures: Radiology/Procedures: [] Course & Med Decision Making: Course & Med Decision Making Pertinent Labs and Imaging studies reviewed. (See chart for details) I suspect the patient did a significant amount of cannabis edibles and has significant confusion. She is not safe to return at this time however once her altered state returned to normal she can return to the nursing home. Dragon Disclaimer: Dragon Disclaimer: This electronic medical record was generated, in whole or in part, using a voice recognition dictation system. Departure Departure Impression: Primary Impression: Altered mental status Disposition: HOME / SELF CARE / HOMELESS Condition: STABLE Referrals: ANKUSH MTZ MD, MPH (PCP) TODD CORRAL MD October 21, 2021 21:55
--- NOTE | 2021-10-21 21:56 | RAD ---
Exam: Chest one view INDICATION: Altered mental status, pain TECHNIQUE: Frontal view of the chest Comparisons: 10/25/2018 FINDINGS: The cardiomediastinal silhouette and pulmonary vessels are within normal limits. Masslike opacity at the right suprahilar region measuring approximately 7 cm. No pleural effusion. IMPRESSION: Masslike opacity at the right suprahilar region measuring 7 cm. Electronically signed by: Bebo Gallegos MD (10/21/2021 9:54 PM) TREV
[2021-10-21 23:30] VITALS: BP 146/78
--- NOTE | 2021-10-21 23:30 | NUR ---
Patient admitted from ER to room 410 per cart. Admitting diagnosis: AMS. Patient found to have increased confusion over the last couple of days. Patient was recently treated for a UTI. Patient lives in a 24 hr care facility ([facility]). Patient admitted to ER staff that she recently had some marijuana edibles while she was out on pass. Patient is alert. Patient is slow to respond when asked a question. She knows who she is and that she is in the hospital. Will continue to monitor patient. Patient denies pain or discomfort at this time.
[2021-10-22] MEDS ORDERED: linzess (00:38)
[2021-10-22] MEDS ORDERED: DOCU-109 PO (00:38)
[2021-10-22] MEDS ORDERED: ACET325T21 PO (00:38)
[2021-10-22] MEDS ORDERED: LORA10TA3 PO (00:38)
[2021-10-22] MEDS ORDERED: HYDR-2761 PO (00:38)
[2021-10-22] MEDS ORDERED: HYDR12.58 PO (00:38)
[2021-10-22] MEDS ORDERED: GLUC-11 PO (00:38)
[2021-10-22] MEDS ORDERED: OLAN10TA69 PO (00:38)
[2021-10-22] MEDS ORDERED: LACT20SO PO (00:38)
[2021-10-22] MEDS ORDERED: UMEC62.5 IH (00:38)
[2021-10-22] MEDS ORDERED: CLON0.1T PO (00:38)
[2021-10-22] MEDS ORDERED: FAMO-63 PO (00:38)
[2021-10-22] MEDS ORDERED: IBUP-1007 PO (00:38)
[2021-10-22] MEDS ORDERED: OMEP20CA16 PO (00:38)
[2021-10-22 03:19] VITALS: BP 156/77
--- NOTE | 2021-10-22 04:30 | EKG ---
[facility] [address] [place] [address] Test Date: 2021-10-21 Test Time: 19:50:27 Pat Name: JESSICA AGUSTIN Department: Room: [facility] Gender: F [employer] Author: : [id number] Requested By: TODD CORRAL Order Number: [id number] Reading MD: Anurag Charles Measurements Intervals [place] Rate: 88 P: 132 FL: 212 QRS: 98 QRSD: 78 T: 127 QT: 344 QTc: 420 Interpretive Statements SINUS RHYTHM PROLONGED FL INTERVAL RIGHTWARD AXIS NON SPECIFIC ST-T WAVE CHANGES Electronically Signed On 10-22-2021 10:02:55 CDT by Anurag Charles
[2021-10-22 07:20] VITALS: BP 102/65
[2021-10-22] MEDS ORDERED: NON FORMULARY ITEM (Methylprednisolone (Medrol) 1 PKG) PO SCH (11:00)
[2021-10-22] MEDS ORDERED: IBUPROFEN 200 MG TABLET. PO PRN (11:00)
--- NOTE | 2021-10-22 11:18 | HP ---
DATE OF SERVICE: 10/22/2021 ADMIT DATE: 10/21/2021 CHIEF COMPLAINT: Mental status change. HISTORY OF PRESENT ILLNESS: The patient is a pleasant 61-year-old female who has schizoaffective disorder. She lives in a care home. Although she does have privileges to leave and come and go, she wishes at times. Apparently, she left and then came back confused. While in the ER where they were not sure what was going on, until finally she admitted that she had taken some edibles. Sure enough, her drug screen is positive for THC. We suspect she has THC toxicity. The patient has now been admitted for further evaluation and treatment. PAST MEDICAL HISTORY: Schizoaffective disorder, depression, tobacco abuse, probable marijuana or edible THC use. ALLERGIES: PENICILLIN. FAMILY HISTORY: Diabetes. SOCIAL HISTORY: She does not drink. She lives at a care home. She does smoke daily. Apparently, she takes edible, I suspect she might smoke pot as well. MEDICATIONS: Reviewed. Please refer to the MRAD. REVIEW OF SYSTEMS: Unable to obtain. She really is not talking much. She just kind of stares off into space. PHYSICAL EXAMINATION: VITALS: Within normal limits and are stable. GENERAL: She is just staring off into space. HEENT: Normal cephalic atraumatic, external auditory canals are patent. EYES: Extraocular muscles are intact, pupils are equally round and reactive to light and accommodation. MUSCULOSKELETAL: Well developed, well nourished, good range of motion. ENDOCRINE: No thyromegaly was palpated. LYMPHATICS: No cervical chain or axillary nodes were noted. HEMATOPOIETIC: No bruising. NECK: Supple, no JVD, no thyromegaly was noted. LUNGS: Clear to auscultation in all lung duvall without rhonchi or wheezing. HEART: RRR, S1, S2 present. Peripheral pulses intact, no obvious murmurs were noted. ABDOMEN: Soft, nontender. Positive bowel sounds no organomegaly, normal bowel sounds. EXTREMITIES: Without any cyanosis, clubbing, or edema. Pedal pulses intact, Homans sign is negative. NEUROLOGIC: She just stare off into space. PSYCHIATRIC: She just stare off into space. SKIN: No ulcerations or rashes, good skin turgor, no jaundice. VASCULAR: Good capillary refill, neurovascular bundle appears to be intact. LABORATORY DATA: Urinalysis negative. Drug screen positive for cannabinoids. Sodium is a little low at 135. Hematology normal. Chest x-ray shows a mass-like opacity in the right suprahilar region measuring 7 cm. ASSESSMENT AND PLAN: Mental status change, probable THC toxicity after consuming edibles with incidental finding of a 7 cm mass on the chest x-ray. For now we are admitting the patient. I will consult Pulmonary Medicine regarding the 7 cm mass on her chest x-ray. We will continue her other home medications. Deep venous thrombosis prophylaxis. Full CODE. We will ask the psychiatric assessment team to evaluate her. [facility]: Tom TID: [id number]
[2021-10-22 11:29] VITALS: BP 110/66
[2021-10-22] MEDS: LISINOPRIL 10 MG TABLET PO SCH (11:30)
[2021-10-22] MEDS: cloNIDine HCL 0.1 MG TABLET PO SCH ×2 (11:30→21:33)
[2021-10-22] MEDS: hydroCHLOROthiazide 25 MG TABLET PO SCH (11:30)
[2021-10-22] MEDS: IPRATRPIUM/ALBUTEROL 0.5/2.5MG 3 ML NEBU. NEB SCH ×3 (11:32→20:30)
[2021-10-22] MEDS: DOCUSATE SODIUM 100 MG CAPSULE. PO SCH (12:49)
[2021-10-22] MEDS: FLUoxetine HCL 20 MG CAPSULE PO SCH (12:49)
[2021-10-22] MEDS: LACTULOSE 20 GM/30 ML SOLUTION. PO SCH (12:50)
[2021-10-22] MEDS: FAMOTIDINE 20 MG TABLET. PO SCH (12:50)
[2021-10-22] MEDS: CETIRIZINE HCL 10 MG TABLET. PO SCH (12:50)
[2021-10-22] MEDS: LUBIPROSTONE 24 MCG CAPSULE PO SCH ×2 (12:50→17:14)
--- NOTE | 2021-10-22 13:26 | PDOC ---
PULMONARY PROGRESS NOTES DATE: 10/22/21 TIME: 13:26 Vitals Vital Signs Date Time Temp Pulse Resp B/P (MAP) Pulse Ox O2 Delivery O2 Flow Rate FiO2 10/22/21 11:30 97 Room Air 10/22/21 11:29 98.6 82 16 110/66 (81) 98.6 General: Alert, Oriented X4 HEENT: Other Lungs: Clear Cardiovascular: S1, S2 Abdomen: Soft, Non-tender Labs Laboratory Tests Test 10/21/21 19:57 10/21/21 20:35 Urine Collection Type U cath Urine Color (Auto) Yellow Urine Turbidity Clear Urine pH (Auto) 6.0 (<5.0-8.0) Urine Specific [place] 1.030 (1.000-1.030) Urine Protein (Auto) 30 mg/dL (Negative) Urine Glucose (Auto)(UA) Negative mg/dL (Negative) Urine Ketones (Auto) 10 mg/dL (Negative) Urine Blood (Auto) Negative (Negative) Urine Nitrite Negative (Negative) Urine Bilirubin (Auto) Negative (Negative) Urine Urobilinogen (Auto) 4 mg/dL (Normal) Urine Leukocyte Esterase (Auto) Negative (Negative) Urine RBC 0 /HPF (0-2) Urine WBC Occ /HPF (0-4) Urine Squamous Epithelial Cells Mod /LPF Urine Bacteria 0 /HPF (0-FEW) Urine Mucus Mod /LPF Urine Opiates Screen Neg (NEG) Urine Methadone Screen Neg (NEG) Urine Barbiturates Neg (NEG) Urine Phencyclidine Screen Neg (NEG) Urine Amphetamine/Methamphetamine Neg (NEG) Urine Benzodiazepines Screen Neg (NEG) Urine Cocaine Screen Neg (NEG) Urine Cannabinoids Screen Pos (NEG) Urine Ethyl Alcohol Neg (NEG) White Blood Count 8.8 x10^3/uL (4.0-11.0) Red Blood Count 4.41 x10^6/uL (3.50-5.40) Hemoglobin 13.7 g/dL (12.0-15.5) Hematocrit 40.4 % (36.0-47.0) Mean Corpuscular Volume 92 fL (79-100) Mean Corpuscular Hemoglobin 31 pg (25-35) Mean Corpuscular Hemoglobin Concent 34 g/dL (31-37) Red Cell Distribution Width 14.8 % (11.5-14.5) Platelet Count 371 x10^3/uL (140-400) Neutrophils (%) (Auto) 67 % (31-73) Lymphocytes (%) (Auto) 21 % (24-48) Monocytes (%) (Auto) 11 % (0-9) Eosinophils (%) (Auto) 1 % (0-3) Basophils (%) (Auto) 1 % (0-3) Neutrophils # (Auto) 5.8 x10^3/uL (1.8-7.7) Lymphocytes # (Auto) 1.8 x10^3/uL (1.0-4.8) Monocytes # (Auto) 0.9 x10^3/uL (0.0-1.1) Eosinophils # (Auto) 0.0 x10^3/uL (0.0-0.7) Basophils # (Auto) 0.1 x10^3/uL (0.0-0.2) Sodium Level 135 mmol/L (136-145) Potassium Level 4.3 mmol/L (3.5-5.1) Chloride Level 94 mmol/L (98-107) Carbon Dioxide Level 32 mmol/L (21-32) Anion Gap 9 (6-14) Blood Urea Nitrogen 11 mg/dL (7-20) Creatinine 0.6 mg/dL (0.6-1.0) Estimated GFR (Cockcroft-Gault) 102.3 BUN/Creatinine Ratio 18 (6-20) Glucose Level 109 mg/dL (70-99) Calcium Level 9.7 mg/dL (8.5-10.1) Total Bilirubin 0.2 mg/dL (0.2-1.0) Aspartate Amino Transf (AST/SGOT) 29 U/L (15-37) Alanine Aminotransferase (ALT/SGPT) 45 U/L (14-59) Alkaline Phosphatase 99 U/L (46-116) Ammonia 46 mcmol/L (11-34) Total Protein 7.9 g/dL (6.4-8.2) Albumin 3.3 g/dL (3.4-5.0) Albumin/Globulin Ratio 0.7 (1.0-1.7) Thyroid Stimulating Hormone (TSH) 1.803 uIU/mL (0.358-3.74) Ethyl Alcohol Level < 10 mg/dL (0-10) Laboratory Tests Test 10/21/21 19:57 10/21/21 20:35 Urine Collection Type U cath Urine Color (Auto) Yellow Urine Turbidity Clear Urine pH (Auto) 6.0 (<5.0-8.0) Urine Specific [place] 1.030 (1.000-1.030) Urine Protein (Auto) 30 mg/dL (Negative) Urine Glucose (Auto)(UA) Negative mg/dL (Negative) Urine Ketones (Auto) 10 mg/dL (Negative) Urine Blood (Auto) Negative (Negative) Urine Nitrite Negative (Negative) Urine Bilirubin (Auto) Negative (Negative) Urine Urobilinogen (Auto) 4 mg/dL (Normal) Urine Leukocyte Esterase (Auto) Negative (Negative) Urine RBC 0 /HPF (0-2) Urine WBC Occ /HPF (0-4) Urine Squamous Epithelial Cells Mod /LPF Urine Bacteria 0 /HPF (0-FEW) Urine Mucus Mod /LPF Urine Opiates Screen Neg (NEG) Urine Methadone Screen Neg (NEG) Urine Barbiturates Neg (NEG) Urine Phencyclidine Screen Neg (NEG) Urine Amphetamine/Methamphetamine Neg (NEG) Urine Benzodiazepines Screen Neg (NEG) Urine Cocaine Screen Neg (NEG) Urine Cannabinoids Screen Pos (NEG) Urine Ethyl Alcohol Neg (NEG) White Blood Count 8.8 x10^3/uL (4.0-11.0) Red Blood Count 4.41 x10^6/uL (3.50-5.40) Hemoglobin 13.7 g/dL (12.0-15.5) Hematocrit 40.4 % (36.0-47.0) Mean Corpuscular Volume 92 fL (79-100) Mean Corpuscular Hemoglobin 31 pg (25-35) Mean Corpuscular Hemoglobin Concent 34 g/dL (31-37) Red Cell Distribution Width 14.8 % (11.5-14.5) Platelet Count 371 x10^3/uL (140-400) Neutrophils (%) (Auto) 67 % (31-73) Lymphocytes (%) (Auto) 21 % (24-48) Monocytes (%) (Auto) 11 % (0-9) Eosinophils (%) (Auto) 1 % (0-3) Basophils (%) (Auto) 1 % (0-3) Neutrophils # (Auto) 5.8 x10^3/uL (1.8-7.7) Lymphocytes # (Auto) 1.8 x10^3/uL (1.0-4.8) Monocytes # (Auto) 0.9 x10^3/uL (0.0-1.1) Eosinophils # (Auto) 0.0 x10^3/uL (0.0-0.7) Basophils # (Auto) 0.1 x10^3/uL (0.0-0.2) Sodium Level 135 mmol/L (136-145) Potassium Level 4.3 mmol/L (3.5-5.1) Chloride Level 94 mmol/L (98-107) Carbon Dioxide Level 32 mmol/L (21-32) Anion Gap 9 (6-14) Blood Urea Nitrogen 11 mg/dL (7-20) Creatinine 0.6 mg/dL (0.6-1.0) Estimated GFR (Cockcroft-Gault) 102.3 BUN/Creatinine Ratio 18 (6-20) Glucose Level 109 mg/dL (70-99) Calcium Level 9.7 mg/dL (8.5-10.1) Total Bilirubin 0.2 mg/dL (0.2-1.0) Aspartate Amino Transf (AST/SGOT) 29 U/L (15-37) Alanine Aminotransferase (ALT/SGPT) 45 U/L (14-59) Alkaline Phosphatase 99 U/L (46-116) Ammonia 46 mcmol/L (11-34) Total Protein 7.9 g/dL (6.4-8.2) Albumin 3.3 g/dL (3.4-5.0) Albumin/Globulin Ratio 0.7 (1.0-1.7) Thyroid Stimulating Hormone (TSH) 1.803 uIU/mL (0.358-3.74) Ethyl Alcohol Level < 10 mg/dL (0-10) Medications Active Scripts Medications Dose Route/Sig Max Daily Dose Days Date Category Olanzapine 10 Mg Tablet 1 Tab PO QHS 10/22/21 Reported Pepcid (Famotidine) 20 Mg Tablet 20 Mg PO DAILY 10/22/21 Reported Omeprazole 20 Mg Capsule.dr 1 Cap PO HS 10/22/21 Reported [linzess] 72 Mcg DAILY07 10/22/21 Reported Lactulose 20 Gm/30 Ml Solution 20 Gm PO DAILY 10/22/21 Reported Incruse Ellipta (Umeclidinium [place]) 62.5 Mcg Blst.w.dev 62.5 Mcg IH DAILY 10/22/21 Reported Ibuprofen 600 Mg Tablet 600 Mg PO PRN Q6HRS PRN 10/22/21 Reported Hydrocodone-Apap 5-325 (Hydrocodone Bit/Acetaminophen) 1 Tab Tablet 1 Tab PO PRN Q6HRS PRN 10/22/21 Reported Hydrochlorothiazide Tablet (Hydrochlorothiazide) 12.5 Mg Tablet 25 Mg PO DAILY 10/22/21 Reported Cidaflex Tablet (Glucosamine Hcl/Chondr Wong A Na) 1 Each Tablet 1 Tab PO BID 30 10/22/21 Reported Colace (Docusate Sodium) 100 Mg Capsule 2 Cap PO DAILY 30 10/22/21 Reported Clonidine Hcl 0.1 Mg Tablet 0.1 Mg PO BID 10/22/21 Reported Loratadine 10 Mg Tablet 1 Tab PO DAILY 10/22/21 Reported Acetaminophen 325 Mg Tablet 2 Tab PO PRN Q4-6HRS PRN 24 10/22/21 Reported Medrol (Methylprednisolone) 4 Mg Tab.ds.pk 1 Pkg PO UD 11/02/18 Rx Lisinopril 20 Mg Tablet 1.5 Tab PO DAILY 10/26/18 Reported Depakote Er (Divalproex Sodium) 500 Mg Tab.er.24h 2 Tab PO QHS 10/26/18 Reported Invega Sustenna (Paliperidone Palmitate) 234 Mg/1.5 Ml Disp.syrin 1 Syr IM QMONTH 10/26/18 Reported Prozac (Fluoxetine Hcl) 20 Mg Capsule 20 Mg PO DAILY 10/26/18 Reported Trazodone Hcl 50 Mg Tablet 1 Tab PO QHS 10/26/18 Reported Impression . Full consult to be dictated Will check CT chest LAN DAVE MD October 22, 2021 13:26
[2021-10-22 15:00] VITALS: BP 130/78
--- NOTE | 2021-10-22 16:06 | RAD ---
CT of the chest without contrast: Clinical History: Reason: Right hilar mass / Spl. Instructions: / History: . Axial helical images of the chest were obtained without contrast. FINDINGS: There is a right suprahilar mass extending into the right upper lobe and abutting the pleura anterior ly and medially. The mass is significantly lobulated and measures 6.0 cm x 6.4 cm x 6.3 similar. Line ar opacity in the lingula is likely discoid atelectasis or scar remaining lungs are clear. There is n o mediastinal lymphadenopathy. There is a few calcified granuloma in the right hilum. Impression: Right suprahilar upper lobe mass. This is highly suspicious for primary lung cancer especially if the patient is a smoker. Metastasis is possible. Lymphoma is felt to be likely. Bronchoscopic biopsy may be helpful. End of impression PQRS Compliance Statement: One or more of the following individualized dose reduction techniques were utilized for this examinat ion: 1. Automated exposure control 2. Adjustment of the mA and/or kV according to patient size 3. Use of iterative reconstruction technique Electronically signed by: Jacob Mccollum III, MD (10/22/2021 4:03 PM) [facility] [place]
[2021-10-22 19:00] VITALS: BP 151/103
[2021-10-22] MEDS ORDERED: NON FORMULARY ITEM (Glucosamine Hcl/Chondr Su A Na (Cidaflex Tablet) 1 TAB) PO SCH (21:00)
[2021-10-22] MEDS: DIVALPROEX EXTENDED RELEASE 500 MG TAB.ER.24H. PO SCH (21:32)
[2021-10-22] MEDS: OLANZapine 5 MG TABLET PO SCH (21:32)
[2021-10-22] MEDS: PANTOPRAZOLE 40 MG TABLET.DR. PO SCH (21:32)
[2021-10-22] MEDS: traZODone 50 MG TABLET. PO SCH (21:32)
[2021-10-22 23:16] VITALS: BP 130/81
[2021-10-23 03:00] VITALS: BP 146/95
[2021-10-23 07:00] VITALS: BP 126/70
[2021-10-23 07:01] LABS: BASO % 1 % (0-3); EOS # 0.1 x10^3/uL (0.0-0.7); EOS % 1 % (0-3); HEMATOCRIT 41.4 % (36.0-47.0); HEMOGLOBIN 13.8 g/dL (12.0-15.5); LYMPH % 26 % (24-48); MEAN CORPUSCULAR HEMOGLOBIN 31 pg (25-35); MEAN CORPUSCULAR HGB CONC 33 g/dL (31-37); MEAN CORPUSCULAR VOLUME 92 fL (79-100); MONO # 0.9 x10^3/uL (0.0-1.1); MONO % 11 % (0-9); NEUT # 4.7 x10^3/uL (1.8-7.7); NEUT % 61 % (31-73); PLATELET COUNT 350 x10^3/uL (140-400); RED BLOOD COUNT 4.51 x10^6/uL (3.50-5.40); WHITE BLOOD COUNT 7.6 x10^3/uL (4.0-11.0)
[2021-10-23 07:18] LABS: CALCIUM 9.6 mg/dL (8.5-10.1); CREATININE 0.5 mg/dL (0.6-1.0); GFR 126.3
[2021-10-23] MEDS: IPRATRPIUM/ALBUTEROL 0.5/2.5MG 3 ML NEBU. NEB SCH ×4 (07:42→20:45)
[2021-10-23] MEDS ORDERED: NON FORMULARY ITEM (Umeclidinium Bromide (Incruse Ellipta) 62.5 MCG) IH SCH (09:00)
[2021-10-23] MEDS: cloNIDine HCL 0.1 MG TABLET PO SCH ×2 (09:04→23:11)
[2021-10-23] MEDS: LUBIPROSTONE 24 MCG CAPSULE PO SCH ×2 (09:05→17:36)
[2021-10-23] MEDS: DOCUSATE SODIUM 100 MG CAPSULE. PO SCH (09:05)
[2021-10-23] MEDS: LACTULOSE 20 GM/30 ML SOLUTION. PO SCH (09:06)
[2021-10-23] MEDS: hydroCHLOROthiazide 25 MG TABLET PO SCH (09:06)
[2021-10-23] MEDS: LISINOPRIL 10 MG TABLET PO SCH (09:06)
[2021-10-23] MEDS: CETIRIZINE HCL 10 MG TABLET. PO SCH (09:06)
[2021-10-23] MEDS: FLUoxetine HCL 20 MG CAPSULE PO SCH (09:06)
[2021-10-23] MEDS: FAMOTIDINE 20 MG TABLET. PO SCH (09:10)
[2021-10-23 11:00] VITALS: BP 143/83
--- NOTE | 2021-10-23 11:07 | SNU/HH DC ---
DISCHARGE ORDERS DISCHARGE INFORMATION: FINAL DIAGNOSIS Problems Medical Problems: (1) Altered mental status Status: Acute CONDITION ON DISCHARGE: Stable CODE STATUS: Code Status: Full HALFWAY: SNF STAY <30 DAYS: No HOSPICE: HOSPICE: No HOSPICE EVAL & TREAT: No LTAC: ADMIT TO LTAC: No POST DISCHARGE ORDERS: ACTIVITY ORDERS: No restrictions, Activity as tolerated WEIGHT BEARING STATUS: No restrictions, As tolerated DIET AFTER DISCHARGE: Cardiac TREATMENT/EQUIPMENT ORDERS: ADAPTIVE EQUIPMENT NEEDED: None RESPIRATORY EQUIPMENT NEEDED: Oxygen DISCHARGE MEDICATIONS: Home Meds Active Scripts Methylprednisolone (MEDROL) 4 Mg Tab.ds.pk, 1 PKG PO UD for bronchitis, #1 PKG Prov:CROW HAYNES MD 11/02/18 Reported Medications Olanzapine (OLANZAPINE) 10 Mg Tablet, 1 TAB PO QHS for schizophrenia, #30 TAB 10/22/21 Famotidine (PEPCID) 20 Mg Tablet, 20 MG PO DAILY for GERD, TAB 10/22/21 Omeprazole (OMEPRAZOLE) 20 Mg Capsule.dr, 1 CAP PO HS for GERD, #30 CAP 5 Refills 10/22/21 [linzess] No Conflict Check, 72 MCG DAILY07 for abdominal pain 10/22/21 Lactulose (LACTULOSE) 20 Gm/30 Ml Solution, 20 GM PO DAILY for chronic kidney disease, MISC 10/22/21 Umeclidinium [place] (Incruse Ellipta) 62.5 Mcg Blst.w.dev, 62.5 MCG IH DAILY for COPD 10/22/21 Ibuprofen (IBUPROFEN) 600 Mg Tablet, 600 MG PO PRN Q6HRS PRN for PAIN, TAB 10/22/21 Hydrocodone Bit/Acetaminophen (HYDROCODONE-APAP 5-325 ) 1 Tab Tablet, 1 TAB PO PRN Q6HRS PRN for PAIN, TAB 0 Refills 10/22/21 Hydrochlorothiazide (HYDROCHLOROTHIAZIDE TABLET) 12.5 Mg Tablet, 25 MG PO DAILY for DIURETIC, TAB 0 Refills 10/22/21 Glucosamine Hcl/Chondr Wong A Na (CIDAFLEX TABLET) 1 Each Tablet, 1 TAB PO BID for low back pain for 30 Days, #60 TAB 0 Refills 10/22/21 Docusate Sodium (COLACE) 100 Mg Capsule, 2 CAP PO DAILY for constipation for 30 Days, #60 CAP 0 Refills 10/22/21 Clonidine Hcl (CLONIDINE HCL) 0.1 Mg Tablet, 0.1 MG PO BID for hypertension, TAB 10/22/21 Loratadine (LORATADINE) 10 Mg Tablet, 1 TAB PO DAILY for allergies, #30 TAB 5 Refills 10/22/21 Acetaminophen (ACETAMINOPHEN) 325 Mg Tablet, 2 TAB PO PRN Q4-6HRS PRN for pain or fever for 24 Days, #100 TAB 0 Refills 10/22/21 Lisinopril (LISINOPRIL) 20 Mg Tablet, 1.5 TAB PO DAILY for htn, #30 TAB 5 Refills 10/26/18 Divalproex Sodium (DEPAKOTE ER) 500 Mg Tab.er.24h, 2 TAB PO QHS for mental health, #90 TAB 2 Refills 10/26/18 Paliperidone Palmitate (INVEGA SUSTENNA) 234 Mg/1.5 Ml Disp.syrin, 1 SYR IM QMONTH for anti psychotic, #1 SYR 3 Refills 10/26/18 Fluoxetine Hcl (PROZAC) 20 Mg Capsule, 20 MG PO DAILY for depression, CAP 10/26/18 Trazodone Hcl (TRAZODONE HCL) 50 Mg Tablet, 1 TAB PO QHS for depression, #30 TAB 1 Refill 10/26/18 ALEJANDRO MAY III DO October 23, 2021 11:06
--- NOTE | 2021-10-23 11:11 | PDOC ---
[employer] PROGRESS NOTE Date of Service DOS: DATE: 10/23/21 TIME: 11:08 Chief Complaint Chief Complaint Probable THC toxicity after eating too many edibles Incidental finding of a 7 cm pulmonary mass History of the following Schizoaffective disorder, depression, tobacco abuse, probable marijuana or edible THC use. History of Present Illness History of Present Illness 10/24/2019 Patient seen and examined Discussed with RN Chart reviewed I reviewed the CAT scan of the chest The patient explains to me that she was aware of this mass on her lung and that it was biopsied and was benign If okay with pulmonary will consider discharge this afternoon Vitals/I&O Vitals/I&O: Vital Signs Date Time Temp Pulse Resp B/P (MAP) Pulse Ox O2 Delivery O2 Flow Rate FiO2 10/23/21 11:00 98.1 64 18 143/83 (103) 100 Room Air 98.1 I & O 10/22/21 10/22/21 10/23/21 15:00 23:00 07:00 Intake Total 800 ml 200 ml 0 ml Balance 800 ml 200 ml 0 ml Physical Exam General: Alert, Other (Slow to gather her words but she seems to know where she lives and what city she is in and states that she already had her lung mass biopsied it was benign) Heart: Regular rate Lungs: Clear Abdomen: Normal bowel sounds Extremities: No clubbing Skin: No rashes Labs Labs: Laboratory Tests Test 10/23/21 05:50 White Blood Count 7.6 x10^3/uL (4.0-11.0) Red Blood Count 4.51 x10^6/uL (3.50-5.40) Hemoglobin 13.8 g/dL (12.0-15.5) Hematocrit 41.4 % (36.0-47.0) Mean Corpuscular Volume 92 fL (79-100) Mean Corpuscular Hemoglobin 31 pg (25-35) Mean Corpuscular Hemoglobin Concent 33 g/dL (31-37) Red Cell Distribution Width 15.0 % (11.5-14.5) Platelet Count 350 x10^3/uL (140-400) Neutrophils (%) (Auto) 61 % (31-73) Lymphocytes (%) (Auto) 26 % (24-48) Monocytes (%) (Auto) 11 % (0-9) Eosinophils (%) (Auto) 1 % (0-3) Basophils (%) (Auto) 1 % (0-3) Neutrophils # (Auto) 4.7 x10^3/uL (1.8-7.7) Lymphocytes # (Auto) 2.0 x10^3/uL (1.0-4.8) Monocytes # (Auto) 0.9 x10^3/uL (0.0-1.1) Eosinophils # (Auto) 0.1 x10^3/uL (0.0-0.7) Basophils # (Auto) 0.0 x10^3/uL (0.0-0.2) Sodium Level 139 mmol/L (136-145) Potassium Level 4.0 mmol/L (3.5-5.1) Chloride Level 98 mmol/L (98-107) Carbon Dioxide Level 32 mmol/L (21-32) Anion Gap 9 (6-14) Blood Urea Nitrogen 10 mg/dL (7-20) Creatinine 0.5 mg/dL (0.6-1.0) Estimated GFR (Cockcroft-Gault) 126.3 Glucose Level 87 mg/dL (70-99) Calcium Level 9.6 mg/dL (8.5-10.1) Assessment and Plan Assessmemt and Plan Problems Medical Problems: (1) Altered mental status Status: Acute Probable THC toxicity after eating too many edibles Incidental finding of a 7 cm pulmonary mass History of the following Schizoaffective disorder, depression, tobacco abuse, probable marijuana or edible THC use. Plan As previously stated regarding the pulmonary mass she states it was already biopsied and was benign I did review the CAT scan report and the films myself I suspect she could [facility] okay with pulmonary medicine [facility] to [facility] okay with pulmonary and I put the orders in For now continue the following; Home meds DVT prophylaxis Full code Await clearance by pulmonary to go back to her facility Comment Review of Relevant I have reviewed the following items sima (where applicable) has been applied. Medications: Current Medications Medications (Trade) Dose Ordered Sig/Dez Route PRN Reason Start Time Stop Time Status Last Admin Dose Admin Clonidine HCl (Catapres) 0.1 mg BID PO 10/22/21 11:30 10/23/21 09:04 Divalproex Sodium (Depakote Er) 1,000 mg QHS PO 10/22/21 21:00 10/22/21 21:32 Docusate Sodium (Colace) 200 mg DAILY PO 10/22/21 11:30 10/23/21 09:05 Famotidine (Pepcid) 20 mg DAILY PO 10/22/21 11:30 10/23/21 09:10 Fluoxetine HCl (PROzac) 20 mg DAILY PO 10/22/21 11:30 10/23/21 09:06 Hydrochlorothiazide (Hydrodiuril) 25 mg DAILY PO 10/22/21 11:30 10/23/21 09:06 Lactulose (Lactulose) 20 gm DAILY PO 10/22/21 11:30 10/23/21 09:06 Lisinopril (Prinivil) 30 mg DAILY PO 10/22/21 11:30 10/23/21 09:06 Trazodone HCl (Desyrel) 50 mg QHS PO 10/22/21 21:00 10/22/21 21:32 Cetirizine HCl (ZyrTEC) 10 mg DAILY PO 10/22/21 11:30 10/23/21 09:06 Olanzapine (ZyPREXA) 10 mg QHS PO 10/22/21 21:00 10/22/21 21:32 Pantoprazole Sodium (Protonix) 40 mg QHS PO 10/22/21 21:00 10/22/21 21:32 Lubiprostone (Amitiza) 24 mcg BIDWMEALS PO 10/22/21 11:30 10/23/21 09:05 Albuterol/ Ipratropium (Duoneb) 3 ml RTQID NEB 10/22/21 12:00 10/23/21 07:42 Justifications for Admission Other Justification ALEJANDRO MAY III DO October 23, 2021 11:11
--- NOTE | 2021-10-23 13:03 | PDOC ---
PULMONARY PROGRESS NOTES DATE: 10/23/21 TIME: 13:02 Vitals Vital Signs Date Time Temp Pulse Resp B/P (MAP) Pulse Ox O2 Delivery O2 Flow Rate FiO2 10/23/21 11:42 92 Room Air 10/23/21 11:00 98.1 64 18 143/83 (103) 98.1 General: Alert, Oriented X4 HEENT: Other Lungs: Clear Cardiovascular: S1, S2 Abdomen: Soft, Non-tender Labs Laboratory Tests Test 10/21/21 19:57 10/21/21 20:35 10/23/21 05:50 Urine Collection Type U cath Urine Color (Auto) Yellow Urine Turbidity Clear Urine pH (Auto) 6.0 (<5.0-8.0) Urine Specific [place] 1.030 (1.000-1.030) Urine Protein (Auto) 30 mg/dL (Negative) Urine Glucose (Auto)(UA) Negative mg/dL (Negative) Urine Ketones (Auto) 10 mg/dL (Negative) Urine Blood (Auto) Negative (Negative) Urine Nitrite Negative (Negative) Urine Bilirubin (Auto) Negative (Negative) Urine Urobilinogen (Auto) 4 mg/dL (Normal) Urine Leukocyte Esterase (Auto) Negative (Negative) Urine RBC 0 /HPF (0-2) Urine WBC Occ /HPF (0-4) Urine Squamous Epithelial Cells Mod /LPF Urine Bacteria 0 /HPF (0-FEW) Urine Mucus Mod /LPF Urine Opiates Screen Neg (NEG) Urine Methadone Screen Neg (NEG) Urine Barbiturates Neg (NEG) Urine Phencyclidine Screen Neg (NEG) Urine Amphetamine/Methamphetamine Neg (NEG) Urine Benzodiazepines Screen Neg (NEG) Urine Cocaine Screen Neg (NEG) Urine Cannabinoids Screen Pos (NEG) Urine Ethyl Alcohol Neg (NEG) White Blood Count 8.8 x10^3/uL (4.0-11.0) 7.6 x10^3/uL (4.0-11.0) Red Blood Count 4.41 x10^6/uL (3.50-5.40) 4.51 x10^6/uL (3.50-5.40) Hemoglobin 13.7 g/dL (12.0-15.5) 13.8 g/dL (12.0-15.5) Hematocrit 40.4 % (36.0-47.0) 41.4 % (36.0-47.0) Mean Corpuscular Volume 92 fL (79-100) 92 fL (79-100) Mean Corpuscular Hemoglobin 31 pg (25-35) 31 pg (25-35) Mean Corpuscular Hemoglobin Concent 34 g/dL (31-37) 33 g/dL (31-37) Red Cell Distribution Width 14.8 % (11.5-14.5) 15.0 % (11.5-14.5) Platelet Count 371 x10^3/uL (140-400) 350 x10^3/uL (140-400) Neutrophils (%) (Auto) 67 % (31-73) 61 % (31-73) Lymphocytes (%) (Auto) 21 % (24-48) 26 % (24-48) Monocytes (%) (Auto) 11 % (0-9) 11 % (0-9) Eosinophils (%) (Auto) 1 % (0-3) 1 % (0-3) Basophils (%) (Auto) 1 % (0-3) 1 % (0-3) Neutrophils # (Auto) 5.8 x10^3/uL (1.8-7.7) 4.7 x10^3/uL (1.8-7.7) Lymphocytes # (Auto) 1.8 x10^3/uL (1.0-4.8) 2.0 x10^3/uL (1.0-4.8) Monocytes # (Auto) 0.9 x10^3/uL (0.0-1.1) 0.9 x10^3/uL (0.0-1.1) Eosinophils # (Auto) 0.0 x10^3/uL (0.0-0.7) 0.1 x10^3/uL (0.0-0.7) Basophils # (Auto) 0.1 x10^3/uL (0.0-0.2) 0.0 x10^3/uL (0.0-0.2) Sodium Level 135 mmol/L (136-145) 139 mmol/L (136-145) Potassium Level 4.3 mmol/L (3.5-5.1) 4.0 mmol/L (3.5-5.1) Chloride Level 94 mmol/L (98-107) 98 mmol/L (98-107) Carbon Dioxide Level 32 mmol/L (21-32) 32 mmol/L (21-32) Anion Gap 9 (6-14) 9 (6-14) Blood Urea Nitrogen 11 mg/dL (7-20) 10 mg/dL (7-20) Creatinine 0.6 mg/dL (0.6-1.0) 0.5 mg/dL (0.6-1.0) Estimated GFR (Cockcroft-Gault) 102.3 126.3 BUN/Creatinine Ratio 18 (6-20) Glucose Level 109 mg/dL (70-99) 87 mg/dL (70-99) Calcium Level 9.7 mg/dL (8.5-10.1) 9.6 mg/dL (8.5-10.1) Total Bilirubin 0.2 mg/dL (0.2-1.0) Aspartate Amino Transf (AST/SGOT) 29 U/L (15-37) Alanine Aminotransferase (ALT/SGPT) 45 U/L (14-59) Alkaline Phosphatase 99 U/L (46-116) Ammonia 46 mcmol/L (11-34) Total Protein 7.9 g/dL (6.4-8.2) Albumin 3.3 g/dL (3.4-5.0) Albumin/Globulin Ratio 0.7 (1.0-1.7) Thyroid Stimulating Hormone (TSH) 1.803 uIU/mL (0.358-3.74) Ethyl Alcohol Level < 10 mg/dL (0-10) Laboratory Tests Test 10/23/21 05:50 White Blood Count 7.6 x10^3/uL (4.0-11.0) Red Blood Count 4.51 x10^6/uL (3.50-5.40) Hemoglobin 13.8 g/dL (12.0-15.5) Hematocrit 41.4 % (36.0-47.0) Mean Corpuscular Volume 92 fL (79-100) Mean Corpuscular Hemoglobin 31 pg (25-35) Mean Corpuscular Hemoglobin Concent 33 g/dL (31-37) Red Cell Distribution Width 15.0 % (11.5-14.5) Platelet Count 350 x10^3/uL (140-400) Neutrophils (%) (Auto) 61 % (31-73) Lymphocytes (%) (Auto) 26 % (24-48) Monocytes (%) (Auto) 11 % (0-9) Eosinophils (%) (Auto) 1 % (0-3) Basophils (%) (Auto) 1 % (0-3) Neutrophils # (Auto) 4.7 x10^3/uL (1.8-7.7) Lymphocytes # (Auto) 2.0 x10^3/uL (1.0-4.8) Monocytes # (Auto) 0.9 x10^3/uL (0.0-1.1) Eosinophils # (Auto) 0.1 x10^3/uL (0.0-0.7) Basophils # (Auto) 0.0 x10^3/uL (0.0-0.2) Sodium Level 139 mmol/L (136-145) Potassium Level 4.0 mmol/L (3.5-5.1) Chloride Level 98 mmol/L (98-107) Carbon Dioxide Level 32 mmol/L (21-32) Anion Gap 9 (6-14) Blood Urea Nitrogen 10 mg/dL (7-20) Creatinine 0.5 mg/dL (0.6-1.0) Estimated GFR (Cockcroft-Gault) 126.3 Glucose Level 87 mg/dL (70-99) Calcium Level 9.6 mg/dL (8.5-10.1) Medications Active Scripts Medications Dose Route/Sig Max Daily Dose Days Date Category Olanzapine 10 Mg Tablet 1 Tab PO QHS 10/22/21 Reported Pepcid (Famotidine) 20 Mg Tablet 20 Mg PO DAILY 10/22/21 Reported Omeprazole 20 Mg Capsule.dr 1 Cap PO HS 10/22/21 Reported [linzess] 72 Mcg DAILY07 10/22/21 Reported Lactulose 20 Gm/30 Ml Solution 20 Gm PO DAILY 10/22/21 Reported Incruse Ellipta (Umeclidinium [place]) 62.5 Mcg Blst.w.dev 62.5 Mcg IH DAILY 10/22/21 Reported Ibuprofen 600 Mg Tablet 600 Mg PO PRN Q6HRS PRN 10/22/21 Reported Hydrocodone-Apap 5-325 (Hydrocodone Bit/Acetaminophen) 1 Tab Tablet 1 Tab PO PRN Q6HRS PRN 10/22/21 Reported Hydrochlorothiazide Tablet (Hydrochlorothiazide) 12.5 Mg Tablet 25 Mg PO DAILY 10/22/21 Reported Cidaflex Tablet (Glucosamine Hcl/Chondr Wong A Na) 1 Each Tablet 1 Tab PO BID 30 10/22/21 Reported Colace (Docusate Sodium) 100 Mg Capsule 2 Cap PO DAILY 30 10/22/21 Reported Clonidine Hcl 0.1 Mg Tablet 0.1 Mg PO BID 10/22/21 Reported Loratadine 10 Mg Tablet 1 Tab PO DAILY 10/22/21 Reported Acetaminophen 325 Mg Tablet 2 Tab PO PRN Q4-6HRS PRN 24 10/22/21 Reported Medrol (Methylprednisolone) 4 Mg Tab.ds.pk 1 Pkg PO UD 11/02/18 Rx Lisinopril 20 Mg Tablet 1.5 Tab PO DAILY 10/26/18 Reported Depakote Er (Divalproex Sodium) 500 Mg Tab.er.24h 2 Tab PO QHS 10/26/18 Reported Invega Sustenna (Paliperidone Palmitate) 234 Mg/1.5 Ml Disp.syrin 1 Syr IM QMONTH 10/26/18 Reported Prozac (Fluoxetine Hcl) 20 Mg Capsule 20 Mg PO DAILY 10/26/18 Reported Trazodone Hcl 50 Mg Tablet 1 Tab PO QHS 10/26/18 Reported Impression . Full consult dictated Right hilar mass extending into the right upper lobe, I reviewed the findings with the patient and verbal Returning her mom Davon Martell At [phone] Discussed with nursing electrician supervisor airplane to transfer back to alf unit my office will arrange for outpatient bronchoscopy. LAN DAVE MD October 23, 2021 13:03
[2021-10-23 15:17] VITALS: BP 114/58
[2021-10-23] MEDS: HYDROcodone/APAP 5/325MG 1 TAB TABLET PO PRN (15:22)
[2021-10-23 19:00] VITALS: BP 128/75
--- NOTE | 2021-10-23 19:52 | DS ---
DATE OF DISCHARGE: 10/23/2021 ADMISSION DIAGNOSES: 1. Mental status change, suspect accidental ingestion of too many THC edibles. 2. Incidental finding of a 7 cm right-sided lung mass. DISCHARGE DIAGNOSES: 1. Resolving toxic encephalopathy secondary to edible ingestion. 2. Chronic right-sided pulmonary mass (she states she had a biopsy and that was benign). 3. History of schizoaffective disorder, depression, tobacco abuse, marijuana use. HOSPITAL COURSE: The patient is a pleasant, middle-aged female who presented with mental status change, was noted to have toxic encephalopathy secondary to probable THC edible ingestion. She did eat it by accident, was not intentional. We observed her overnight. Today, I saw and examined her. She is doing well. I did consult Pulmonary because of the incidental finding of the lung mass. When I spoke with the patient, she states it has already been biopsied and that was benign. Pulmonary is okay with her going home. They are going to schedule an outpatient bronchoscopy to be safe. DISPOSITION: Back to her long-term care facility. ACTIVITY: As tolerated. DIET: Low sodium. DISCHARGE MEDICATIONS: Please see the MRAD. P.r.n. Tylenol, clonidine 0.1 b.i.d., Depakote 1000 at bedtime and 200 in the morning, Pepcid 20 b.i.d., fluoxetine 20 a day, glucosamine, hydrochlorothiazide 25 a day, p.r.n. hydrocodone 5 every 6 hours, ibuprofen p.r.n., lactulose 20 grams daily, Linzess 72 daily, lisinopril 30 mg daily, loratadine 10 a day, Medrol Dosepak, olanzapine 10 at bedtime, omeprazole 20 at bedtime, Invega 234 mg/1.5 mL, she takes 1 shot monthly, trazodone 50 at bedtime and Incruse Ellipta 62.5 inhaled daily for COPD. Total time 32 minutes. [facility] DR: PACO/cosmo TID: [id number]
[2021-10-23 23:00] VITALS: BP 149/74
[2021-10-23] MEDS: traZODone 50 MG TABLET. PO SCH (23:09)
[2021-10-23] MEDS: DIVALPROEX EXTENDED RELEASE 500 MG TAB.ER.24H. PO SCH (23:10)
[2021-10-23] MEDS: PANTOPRAZOLE 40 MG TABLET.DR. PO SCH (23:10)
[2021-10-23] MEDS: OLANZapine 5 MG TABLET PO SCH (23:10)
--- NOTE | 2021-10-24 01:26 | CONS ---
DATE OF CONSULTATION: 10/23/2021 ATTENDING PHYSICIAN: Mariela Curry DO CONSULTING PHYSICIAN: Roxanne Galloway MD REASON FOR CONSULTATION: The patient is seen in pulmonary consultation at the request of Dr. Curry for abnormal chest x-ray and CT chest. HISTORY OF PRESENT ILLNESS: The patient is a 61-year-old that has been smoking since the age of 17. She presented with some altered mental status. She was evaluated, underwent a chest x-ray, which revealed a right upper lobe hilar mass. Subsequently, I ordered the CT chest. I personally reviewed the CT. There was a right supra upper lobe mass, highly suspicious for cancer. I was asked to see the patient in consultation. The patient is a relatively good historian. She has underlying schizophrenia, depression, tobacco abuse, marijuana use. She presented with altered mental status. The thinking is that this may have been related to THC. She states that she is short of breath, but no new symptoms of being more short of breath. She denies fever or chills. No productive cough. She has not had any hemoptysis. PAST MEDICAL HISTORY: Schizoaffective disorder, depression, tobacco abuse, marijuana use. ALLERGIES: PENICILLIN. FAMILY HISTORY: Diabetes. SOCIAL HISTORY: She lives at a alf. REVIEW OF SYSTEMS: As indicated above. Otherwise, 10-point system was reviewed and negative. CURRENT MEDICATIONS: List was reviewed. PHYSICAL EXAMINATION: GENERAL: The patient did not appear to be in any respiratory distress. VITAL SIGNS: Stable. O2 saturation was greater than 92% on room air. HEENT: Eyes: The sclerae were nonicteric. NECK: Jugular venous distention was not elevated. No lymphadenopathy. CHEST: Full expansion. LUNGS: Adequate flow with coarse breath sounds on the right. CARDIOVASCULAR: Regular rate and rhythm with S1, S2. No S3. ABDOMEN: Soft. EXTREMITIES: No clubbing, cyanosis or edema. NEUROLOGIC: The patient was sitting up in the chair, eating lunch, not short of breath. No respiratory distress. Awake, alert, following commands. Detailed neuro exam was not performed. LABORATORY DATA: Urine drug screen was positive for cannabinoid. UA was noted. Electrolytes were all within normal range. Calcium level was normal. Ammonia level was slightly elevated. White count was normal. Hemoglobin and hematocrit was normal. CT chest as indicated above. IMPRESSION: 1. Abnormal CT chest revealing right upper lobe mass extending to the hilar region, suspicious for primary lung cancer, possibly lymphoma. 2. Tobacco dependent. 3. Underlying chronic obstructive pulmonary disease, unknown FEV1. 4. Schizoaffective disorder. 5. Polysubstance use including THC. DISCUSSION: I went over the findings with the patient, she understood that there was definitely a growth in her lungs. I have informed the patient that we will proceed with bronchoscopy and biopsy, her durable power of manager analysis is her mom, Davon Martell. I spoke with her at [phone]. I went over the risks, benefits and alternatives to bronchoscopy. She has consented. The patient will be discharged back to the alf, my office will arrange for outpatient bronchoscopy with biopsy. I do appreciate the privilege in sharing in patient's care. MAYNOR/NAIMA DR: Roxana TID: [id number]
[2021-10-24 03:00] VITALS: BP 102/59
--- NOTE | 2021-10-24 04:48 | NUR ---
Pt remains in AMS stage, remains safe no harm done, no acute distress, was found sitting on floor tanzanian style saying "I spending time praying" assisted up and returned to bed. No complaints of pain. Will continue to monitor.
[2021-10-24 07:00] VITALS: BP 130/86
--- NOTE | 2021-10-24 07:41 | PDOC ---
PULMONARY PROGRESS NOTES DATE: 10/24/21 TIME: 07:41 Vitals Vital Signs Date Time Temp Pulse Resp B/P (MAP) Pulse Ox O2 Delivery O2 Flow Rate FiO2 10/24/21 03:00 87 14 102/59 (73) 93 Room Air 10/23/21 23:00 98.6 98.6 General: Alert, Oriented X4 HEENT: Other Lungs: Clear Cardiovascular: S1, S2 Abdomen: Soft, Non-tender Labs Laboratory Tests Test 10/23/21 05:50 White Blood Count 7.6 x10^3/uL (4.0-11.0) Red Blood Count 4.51 x10^6/uL (3.50-5.40) Hemoglobin 13.8 g/dL (12.0-15.5) Hematocrit 41.4 % (36.0-47.0) Mean Corpuscular Volume 92 fL (79-100) Mean Corpuscular Hemoglobin 31 pg (25-35) Mean Corpuscular Hemoglobin Concent 33 g/dL (31-37) Red Cell Distribution Width 15.0 % (11.5-14.5) Platelet Count 350 x10^3/uL (140-400) Neutrophils (%) (Auto) 61 % (31-73) Lymphocytes (%) (Auto) 26 % (24-48) Monocytes (%) (Auto) 11 % (0-9) Eosinophils (%) (Auto) 1 % (0-3) Basophils (%) (Auto) 1 % (0-3) Neutrophils # (Auto) 4.7 x10^3/uL (1.8-7.7) Lymphocytes # (Auto) 2.0 x10^3/uL (1.0-4.8) Monocytes # (Auto) 0.9 x10^3/uL (0.0-1.1) Eosinophils # (Auto) 0.1 x10^3/uL (0.0-0.7) Basophils # (Auto) 0.0 x10^3/uL (0.0-0.2) Sodium Level 139 mmol/L (136-145) Potassium Level 4.0 mmol/L (3.5-5.1) Chloride Level 98 mmol/L (98-107) Carbon Dioxide Level 32 mmol/L (21-32) Anion Gap 9 (6-14) Blood Urea Nitrogen 10 mg/dL (7-20) Creatinine 0.5 mg/dL (0.6-1.0) Estimated GFR (Cockcroft-Gault) 126.3 Glucose Level 87 mg/dL (70-99) Calcium Level 9.6 mg/dL (8.5-10.1) Medications Active Scripts Medications Dose Route/Sig Max Daily Dose Days Date Category Olanzapine 10 Mg Tablet 1 Tab PO QHS 10/22/21 Reported Pepcid (Famotidine) 20 Mg Tablet 20 Mg PO DAILY 10/22/21 Reported Omeprazole 20 Mg Capsule.dr 1 Cap PO HS 10/22/21 Reported [linzess] 72 Mcg DAILY07 10/22/21 Reported Lactulose 20 Gm/30 Ml Solution 20 Gm PO DAILY 10/22/21 Reported Incruse Ellipta (Umeclidinium [place]) 62.5 Mcg Blst.w.dev 62.5 Mcg IH DAILY 10/22/21 Reported Ibuprofen 600 Mg Tablet 600 Mg PO PRN Q6HRS PRN 10/22/21 Reported Hydrocodone-Apap 5-325 (Hydrocodone Bit/Acetaminophen) 1 Tab Tablet 1 Tab PO PRN Q6HRS PRN 10/22/21 Reported Hydrochlorothiazide Tablet (Hydrochlorothiazide) 12.5 Mg Tablet 25 Mg PO DAILY 10/22/21 Reported Cidaflex Tablet (Glucosamine Hcl/Chondr Wong A Na) 1 Each Tablet 1 Tab PO BID 30 10/22/21 Reported Colace (Docusate Sodium) 100 Mg Capsule 2 Cap PO DAILY 30 10/22/21 Reported Clonidine Hcl 0.1 Mg Tablet 0.1 Mg PO BID 10/22/21 Reported Loratadine 10 Mg Tablet 1 Tab PO DAILY 10/22/21 Reported Acetaminophen 325 Mg Tablet 2 Tab PO PRN Q4-6HRS PRN 24 10/22/21 Reported Medrol (Methylprednisolone) 4 Mg Tab.ds.pk 1 Pkg PO UD 11/02/18 Rx Lisinopril 20 Mg Tablet 1.5 Tab PO DAILY 10/26/18 Reported Depakote Er (Divalproex Sodium) 500 Mg Tab.er.24h 2 Tab PO QHS 10/26/18 Reported Invega Sustenna (Paliperidone Palmitate) 234 Mg/1.5 Ml Disp.syrin 1 Syr IM QMONTH 10/26/18 Reported Prozac (Fluoxetine Hcl) 20 Mg Capsule 20 Mg PO DAILY 10/26/18 Reported Trazodone Hcl 50 Mg Tablet 1 Tab PO QHS 10/26/18 Reported Impression . IMPRESSION: 1. Abnormal CT chest revealing right upper lobe mass extending to the hilar region, suspicious for primary lung cancer, possibly lymphoma. 2. Tobacco dependent. 3. Underlying chronic obstructive pulmonary disease, unknown FEV1. 4. Schizoaffective disorder. 5. Polysubstance use including THC. Plan . DISCUSSION: I went over the findings with the patient, she understood that there was definitely a growth in her lungs. I have informed the patient that we will proceed with bronchoscopy and biopsy, her durable power of patent prosecution attorney is her mom, Davon Martell. I spoke with her at [phone]. I went over the risks, benefits and alternatives to bronchoscopy. She has consented. The patient will be discharged back to the detention, my office will arrange for outpatient bronchoscopy with biopsy. I do appreciate the privilege in sharing in patient's care. LAN DAVE MD October 24, 2021 07:41
[2021-10-24 07:54] LABS: BASO % 1 % (0-3); EOS # 0.1 x10^3/uL (0.0-0.7); EOS % 1 % (0-3); HEMOGLOBIN 13.4 g/dL (12.0-15.5); LYMPH # 2.1 x10^3/uL (1.0-4.8); LYMPH % 29 % (24-48); MEAN CORPUSCULAR HEMOGLOBIN 31 pg (25-35); MEAN CORPUSCULAR HGB CONC 34 g/dL (31-37); MEAN CORPUSCULAR VOLUME 91 fL (79-100); MONO # 0.7 x10^3/uL (0.0-1.1); MONO % 10 % (0-9); NEUT # 4.3 x10^3/uL (1.8-7.7); NEUT % 60 % (31-73); PLATELET COUNT 341 x10^3/uL (140-400); RED BLOOD COUNT 4.37 x10^6/uL (3.50-5.40); RED CELL DISTRIBUTION WIDTH 14.6 % (11.5-14.5); WHITE BLOOD COUNT 7.2 x10^3/uL (4.0-11.0)
[2021-10-24 08:08] LABS: CALCIUM 9.9 mg/dL (8.5-10.1); CREATININE 0.5 mg/dL (0.6-1.0); GFR 126.3; POTASSIUM 4.2 mmol/L (3.5-5.1)
[2021-10-24] MEDS: LUBIPROSTONE 24 MCG CAPSULE PO SCH (08:51)
[2021-10-24] MEDS: CETIRIZINE HCL 10 MG TABLET. PO SCH (08:51)
[2021-10-24] MEDS: cloNIDine HCL 0.1 MG TABLET PO SCH (08:52)
[2021-10-24] MEDS: FLUoxetine HCL 20 MG CAPSULE PO SCH (08:52)
[2021-10-24] MEDS: DOCUSATE SODIUM 100 MG CAPSULE. PO SCH (08:52)
[2021-10-24] MEDS: FAMOTIDINE 20 MG TABLET. PO SCH (08:53)
[2021-10-24] MEDS: LACTULOSE 20 GM/30 ML SOLUTION. PO SCH (08:53)
[2021-10-24] MEDS: hydroCHLOROthiazide 25 MG TABLET PO SCH (08:53)
[2021-10-24] MEDS: LISINOPRIL 10 MG TABLET PO SCH (08:53)
[2021-10-24] MEDS: HYDROcodone/APAP 5/325MG 1 TAB TABLET PO PRN (09:02)
[2021-10-24] MEDS: IPRATRPIUM/ALBUTEROL 0.5/2.5MG 3 ML NEBU. NEB SCH (10:59)
[2021-10-24 11:00] VITALS: BP 128/80
--- NOTE | 2021-10-24 11:49 | NUR ---
Report called to Saman at [facility] at 1140. Transport picked pt up at 1135 by w/c.
--- NOTE | 2021-10-24 12:24 | PDOC ---
[employer] PROGRESS NOTE Date of Service DOS: DATE: 10/24/21 TIME: 12:23 Chief Complaint Chief Complaint Probable THC toxicity after eating too many edibles Incidental finding of a 7 cm pulmonary mass History of the following Schizoaffective disorder, depression, tobacco abuse, probable marijuana or edible THC use. History of Present Illness History of Present Illness 10/24/2021 Patient seen and examined this morning Discussed with RN Chart reviewed Apparently transportation did not show up yesterday to take her back to her facility We will go ahead and redischarge 10/24/2019 Patient seen and examined Discussed with RN Chart reviewed I reviewed the CAT scan of the chest The patient explains to me that she was aware of this mass on her lung and that it was biopsied and was benign If okay with pulmonary will consider discharge this afternoon Vitals/I&O Vitals/I&O: Vital Signs Date Time Temp Pulse Resp B/P (MAP) Pulse Ox O2 Delivery O2 Flow Rate FiO2 10/24/21 11:00 98.4 90 18 128/80 (96) 93 Room Air 98.4 I & O 10/23/21 10/23/21 10/24/21 15:00 23:00 07:00 Intake Total 0 ml Balance 0 ml Physical Exam General: Alert, Other (Slow to gather her words but she seems to know where she lives and what city she is in and states that she already had her lung mass biopsied it was benign) Heart: Regular rate Lungs: Clear Abdomen: Normal bowel sounds Extremities: No clubbing Skin: No rashes Labs Labs: Laboratory Tests Test 10/24/21 07:12 10/24/21 07:21 White Blood Count 7.2 x10^3/uL (4.0-11.0) Red Blood Count 4.37 x10^6/uL (3.50-5.40) Hemoglobin 13.4 g/dL (12.0-15.5) Hematocrit 40.0 % (36.0-47.0) Mean Corpuscular Volume 91 fL (79-100) Mean Corpuscular Hemoglobin 31 pg (25-35) Mean Corpuscular Hemoglobin Concent 34 g/dL (31-37) Red Cell Distribution Width 14.6 % (11.5-14.5) Platelet Count 341 x10^3/uL (140-400) Neutrophils (%) (Auto) 60 % (31-73) Lymphocytes (%) (Auto) 29 % (24-48) Monocytes (%) (Auto) 10 % (0-9) Eosinophils (%) (Auto) 1 % (0-3) Basophils (%) (Auto) 1 % (0-3) Neutrophils # (Auto) 4.3 x10^3/uL (1.8-7.7) Lymphocytes # (Auto) 2.1 x10^3/uL (1.0-4.8) Monocytes # (Auto) 0.7 x10^3/uL (0.0-1.1) Eosinophils # (Auto) 0.1 x10^3/uL (0.0-0.7) Basophils # (Auto) 0.0 x10^3/uL (0.0-0.2) Sodium Level 136 mmol/L (136-145) Potassium Level 4.2 mmol/L (3.5-5.1) Chloride Level 95 mmol/L (98-107) Carbon Dioxide Level 31 mmol/L (21-32) Anion Gap 10 (6-14) Blood Urea Nitrogen 10 mg/dL (7-20) Creatinine 0.5 mg/dL (0.6-1.0) Estimated GFR (Cockcroft-Gault) 126.3 Glucose Level 95 mg/dL (70-99) Calcium Level 9.9 mg/dL (8.5-10.1) Assessment and Plan Assessmemt and Plan Problems Medical Problems: (1) Altered mental status Status: Acute Comment Review of Relevant I have reviewed the following items sima (where applicable) has been applied. Justifications for Admission Other Justification ALEJANDRO MAY III DO October 24, 2021 12:24
[2021-11-21] MEDS ORDERED: PALIPERIDONE PALMITATE IM SCH (09:00)
== END 2021-10-24 11:35 | DRG 917 ==
LOC: ER 19:22 → 4 NORTH 22:48
PROVIDERS: ADMIT Internal Medicine; ATTEND Internal Medicine
DX: T40.711A Poisoning by cannabis, accidental (unintentional), initial encounter (principal); G92.9 Unspecified toxic encephalopathy; F12.129 Cannabis abuse with intoxication, unspecified; F17.200 Nicotine dependence, unspecified, uncomplicated; F25.9 Schizoaffective disorder, unspecified; F32.A Depression, unspecified; J44.9 Chronic obstructive pulmonary disease, unspecified; Z83.3 Family history of diabetes mellitus; Y92.89 Other specified places as the place of occurrence of the external cause; Z88.0 Allergy status to penicillin
CPT/HCPCS: 36415; 70450; 71045; 71250; 80048; 80053; 80307; 81001; 82140; 84443; 85025; 93005; 94640; 94760; G0378; G0480; P9612; 97110-GP; 97116-GP; 97535-GO; 99285-25